=== PATIENT | male | born 1930 | race Caucasian/White ===

== ENCOUNTER 2016-11-01 17:33 | Observation (INO) | payer MEDICARE, OTHER ==
--- NOTE | 2016-11-01 20:44 | RAD ---
INDICATION: Altered mental status COMPARISON: None. TECHNIQUE: Contiguous axial sections of the brain were obtained from the skull base to the vertex without contrast. FINDINGS: The ventricles, cisterns and sulci are within normal limits. There are very mild periventricular and subcortical white matter hypoattenuation most consistent with mild chronic microvascular disease. Otherwise the hurt[place]-white matter differentiation is adequately maintained and there is no sulcal effacement. No significant focal abnormality or mass effect is present. There is no evidence for intracranial hemorrhage. No significant focal osseous abnormality is present. The visualized portion of the paranasal sinuses and mastoid air cells appear clear. IMPRESSION: Findings of chronic microvascular disease without acute intracranial abnormality.
--- NOTE | 2016-11-01 20:48 | RAD ---
INDICATION: Chest pain COMPARISON: Similar chest x-ray September 24, 2011 TECHNIQUE: Single AP view of the chest was obtained. FINDINGS: The heart and mediastinum exhibit normal size and contour. Similar the previous chest x-ray the lungs appear hyperaerated in the AP projection. Otherwise the lungs are grossly clear. There is no evidence of a large pleural effusion. Visualized bones are normal for the patient's age. IMPRESSION: No radiographic evidence for acute cardiopulmonary abnormality on this single AP view chest x-ray.
[2016-11-01 21:13] LABS: Hematocrit 35 % (42-52); Hemoglobin 11.4 g/dl (14.0-18.0); Mean Corpuscular HGB Conc 33 g/dl (31-36); Mean Corpuscular Hemoglobin 31 pg (27-31); Mean Corpuscular Volume 96 fL (80-94); Mean Platelet Volume 8 um3 (7.4-10.4); Red Blood Count 3.64 10^6/ul (4.0-5.4); Red Cell Distribution Width 16 % (10.5-15); White Blood Count 7.5 10^3/ul (3.5-10.8)
[2016-11-01 21:28] LABS: Albumin 3.4 g/dL (3.2-5.2); BUN/Creatinine Ratio 32.9 (8-20); Calcium 9.2 mg/dL (8.6-10.3); EGFR African American 119.3 (>60); EGFR Non-African American 92.8 (>60); Globulin 3.2 g/dL (2-4); Potassium 3.6 mmol/L (3.5-5.0); Total Bilirubin 0.4 mg/dL (0.2-1.0); Total Protein 6.6 g/dL (6.4-8.9)
[2016-11-01 21:30] LABS: Troponin I 0.03 ng/mL (<0.04)
[2016-11-01] MEDS ORDERED: Iohexol 350* (CONTRAST) 500 ML MDV IV ONE (21:36)
[2016-11-01] MEDS ORDERED: Acetaminophen TAB* 325 MG PO PRN (22:12)
[2016-11-01] MEDS ORDERED: Atorvastatin* 80 MG TAB PO ONE (22:12)
[2016-11-01] MEDS ORDERED: hydrALAZINE IV* 20 MG/ML VIAL IV SLOW PU PRN (22:12)
[2016-11-01] MEDS ORDERED: Ondansetron INJ* 2 MG/ML VIAL IV PRN (22:12)
[2016-11-01] MEDS ORDERED: Clopidogrel TAB* 75 MG PO SCH (23:00)
--- NOTE | 2016-11-01 23:04 | RAD ---
CPT II: CPT II Codes: 3100F INDICATION: Speech difficulty and loss of motor control COMPARISON: Same day CT of the brain. TECHNIQUE: A CT angiogram of the head and neck was performed with 80 cc of Omnipaque 350. Contiguous axial sections were obtained from the thoracic inlet through the [place]. Images were reconstructed in the sagittal, coronal planes and in a 3-D volume rendered format. The distal cervical internal carotid artery diameter is used as the denominater for stenosis measurement. CTA NECK: The common and internal carotid arteries are patent without hemodynamically significant stenosis. Right: Low the bifurcation the common carotid artery measures 7 mm in diameter. There is mixed attenuation atherosclerosis of the carotid bulb and internal carotid artery narrowing the lumen to <2 mm. Left: The left common carotid artery measures 6 mm in diameter. There is mixed attenuation atherosclerosis at the carotid bulb that totally occludes the left internal carotid artery the artery remains occluded to the petrous carotid artery with the more distal branches filling by collateralized flow. The vertebral arteries are patent without gross abnormality. 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 The LEDA and MCA fill by collateralized flow. The distal most branches of the renal cerebral artery are diminutive relative to the contralateral side. There is no arterial filling seen in the left ophthalmic artery. The anterior and middle cerebral arteries appear are patent without high grade stenosis or occlusion. The vertebral, basilar and posterior cerebral arteries appear patent without high grade stenosis or occlusion. The left posterior communicating artery is absent. IMPRESSION: 1. 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 2. Mixed attenuation atherosclerosis causes high-grade stenosis at the right carotid bulb exhibiting at least 75% degree stenosis. Further characterization with carotid ultrasound can be made if it will influence clinical management.
[2016-11-02 01:48] LABS: HDL Cholesterol 57.2 mg/dL
--- NOTE | 2016-11-02 02:46 | HP ---
HISTORY AND PHYSICAL: DATE OF ADMISSION: 11/01/16 PRIMARY CARE PROVIDER: Nimesh Devries MD ATTENDING PHYSICIAN WHILE IN THE HOSPITAL: Xiomara Dominguez MD * (report dictated by Stevie Barrios NP) CONSULTING NEUROLOGIST: Boris Lin MD CHIEF COMPLAINT: Right arm weakness. HISTORY OF PRESENT ILLNESS: Mr. Lu is an 85-year-old male patient with history of spinal stenosis, anemia, BPH, glaucoma, B12 deficiency, neuropathy, macular degeneration, arthritis, and history of TIAs. He comes into the ER today stating that 2 weeks ago, he was in [place], [place]. He had symptoms of right-sided arm weakness, could not move his arm. He was seen there and apparently had a carotid ultrasound, which did show a complete occlusion of carotid artery. We do not have those records and are unsure which artery it was. Subsequently since then he has been having intermittent symptoms of right arm weakness at time lasting 5 to 10 minutes. He has had 3 episodes 2 days ago. He did have some slurring of his words, but yesterday he did have an episode lasting about 5 minutes and right arm weakness, no facial droop, no weakness to the right leg, no vision changes, and no trouble with speech. The patient states that he went to his primary today and spoke to his primary about his symptoms and he was sent to the ER for further evaluation with CTA of the head and neck. The patient's primary did touch base with neurology who felt that CT of the head and neck would be appropriate. He is completely asymptomatic now. The patient denies any chest pain or shortness of breath. He says he recently was diagnosed of pneumonia and had 7 days of antibiotics and he is doing well since then. No recurrent respiratory symptoms. No nausea. No vomiting. He denied having anymore neuro deficits since yesterday. He was evaluated in the ER. There was concern for recurrent TIAs. Hospitalist service was asked to evaluate in admission. PAST MEDICAL HISTORY: Significant for: 1. Spinal stenosis. 2. Anemia. 3. BPH. 4. Glaucoma. 5. B12 deficiency. 6. Neuropathy. 7. Macular degeneration. 8. Arthritis. 9. History of TIAs. PAST SURGICAL HISTORY: 1. He had cataract extraction. 2. He has had a detached retina repair. HOME MEDICATIONS: Include: 1. Omeprazole 20 mg daily. 2. Naproxen 250 mg p.o. b.i.d. 3. Multivitamin 1 tablet daily. 4. Proscar 5 mg daily. 5. Eye vitamin supplement 1 capsule p.o. daily. 6. B12 1000 mcg IM monthly. 7. Azopt 1 drop right eye b.i.d. 8. Alphagan 1 drop both eyes b.i.d. 9. Aspirin 81 mg daily. ALLERGIES: Include no known drug allergies. FAMILY HISTORY: Reviewed and noncontributory. SOCIAL HISTORY: He does not smoke. Occasionally drinks alcohol. Surrogate decision maker is his son. REVIEW OF SYSTEMS: There is no documented fever. He denied having any significant weight change. There was no double vision. There is no ear discharge. There is no rhinorrhea. No sore throat. No thyroid enlargement. He denies having any chest pain. There was no orthopnea. No nocturnal dyspnea. There is no abdominal pain. No nausea. No vomiting. No dysuria. No frequency. No loss of consciousness. No pruritus. No skin ulcerations. Review of 14 systems completed, all others negative. PHYSICAL EXAMINATION GENERAL: At this time, Mr. Lu is an 85-year-old male patient. He is well nourished, well developed. He does not appear to be in any acute distress. VITAL SIGNS: Reveals blood pressure 187/94, pulse 64, respirations 18, O2 sat 99%, and temperature 98.4. HEENT: Head is atraumatic and normocephalic. Eyes: EOMs are intact. Sclerae anicteric and not pale. Neck: Supple. Throat: Oral mucosa appears to be moist. No oropharyngeal erythema. LUNGS: Clear to auscultation bilaterally. No wheezes, rales, or rhonchi. HEART: Sounds S1 and S2. Regular rate and rhythm. No murmurs, rubs, or gallops. ABDOMEN: Soft. It was flat. It is nontender. Bowel sounds are present. EXTREMITIES: Pulses 2+ throughout. Able to move all 4 extremities with 5/5 strength. NEUROLOGIC: He is awake. He is alert. He is oriented x3. [employer] were equal. Cranial nerves II through XII were intact. He is able to hull and deck remover all 4 extremities with 5/5 strength and no gross focal deficits. His speech is clear. His tongue is midline. SKIN: Grossly intact. DIAGNOSTIC STUDIES/LAB DATA: Today revealed WBC of 7.5, RBC of 3.64, hemoglobin of 11.4, hematocrit 35, and platelet count of 192. INR 1.02 and PTT of 30.9. Sodium 137, potassium of 3.6, chloride 108, bicarb 27, BUN 26, creatinine 0.79, glucose 88, lactic 4.0, and calcium 9.2. Total bili 0.4, AST 17, ALT 10, and alk phos 54. CK 60. Troponin 0.03. BNP 198. Albumin 3.4. He had a brain CT obtained today, which revealed findings of chronic microvascular disease without acute intracranial abnormality. He had an EKG obtained today as well. No previous for comparison, but the EKG today did show a normal sinus rhythm with PAC, no ST elevations or T-wave inversions were noted. He did appear to have LVH. He had a chest x-ray as well, which showed no radiographic evidence of acute cardiopulmonary abnormality Old medical records were reviewed. ASSESSMENT AND PLAN: Mr. Lu is an 85-year-old male patient coming into the ER today with complaints of right arm weakness. He states he has had recurrent symptoms of transient ischemic attack over the last several days. He has had 3 episodes, evaluated by his primary today. There was report of occluded carotid artery. Hospitalist service was asked to evaluate for admission. He will be admitted under observation status for: 1. Transient ischemic attack: Again at this point, we will get a CTA of the head and neck. I did touch base with Dr. Lin. The plan will be to go ahead and put the patient on Plavix. I am going to give him high-dose statin, check lipid panel in the morning. We will place on telemetry. In addition to this, we will continue with his aspirin. We will get neuro check every 2 hours and we will continue to follow. I am going to await for Dr. Lin to evaluate the patient tomorrow to see if we need to go ahead forward with an MRI and echo with bubble study, but at this point we will hold. We will go ahead and try to keep his blood pressure greater than 140. His blood pressure lastly was 220 systolic, so I have ordered hydralazine and I would like to keep him less than 200 for the time being, but because of the concern of the carotid occlusion, I would like to have his blood pressure around the high side. I will continue to monitor. 2. History of spinal stenosis: I have ordered p.r.n. Tylenol. He can follow with his primary. 3. Anemia: H and H stable. We will monitor. 4. Benign prostatic hyperplasia: Continue Proscar. 5. Glaucoma: Continue his medications prescribed. 6. B12 deficiency: When he is discharged, he can continue with his monthly IM injection. 7. Neuropathy: Continue with his current medical regimen. 8. Macular degeneration: Continue current meds. 9. Arthritis: P.R.N. Tylenol is in order. 10. DVT prophylaxis: He will be placed on heparin subcu. 11. Code status: He wishes to be a full code while here in the hospital, which I have ordered. 12. Fluids, electrolytes, and nutrition: He can have a heart-healthy diet. TIME SPENT: Time spent on the admission was approximately 60 minutes; greater than half the time was spent [id number] with the patient obtaining my history and physical, the other half time is spent going over the plan of care with the patient and implementing plan of care. I discussed the plan of care with my attending, Dr. Dominguez. She is in agreement. STEVIE BARRIOS NP CC: Nimesh Devries MD; Boris Lin MD * [id number]/[facility] #: [id number] MTDD
[2016-11-02] MEDS ORDERED: Heparin VIAL(*) 5000 UNITS/ML VIAL (FIVE THOUSAND) SUBCUT SCH (06:00)
[2016-11-02 06:47] LABS: Hematocrit 31 % (42-52); Hemoglobin 10.6 g/dl (14.0-18.0); Mean Corpuscular HGB Conc 34 g/dl (31-36); Mean Corpuscular Hemoglobin 32 pg (27-31); Mean Corpuscular Volume 95 fL (80-94); Mean Platelet Volume 8 um3 (7.4-10.4); Red Blood Count 3.32 10^6/ul (4.0-5.4); Red Cell Distribution Width 16 % (10.5-15)
[2016-11-02 08:28] LABS: BUN/Creatinine Ratio 25.6 (8-20); Calcium 8.5 mg/dL (8.6-10.3); EGFR African American 114.3 (>60); EGFR Non-African American 88.9 (>60); Potassium 3.8 mmol/L (3.5-5.0)
[2016-11-02] MEDS ORDERED: Brimonidine P 0.1%(NF) 1 DROP BTL BOTH EYES SCH (09:00)
[2016-11-02] MEDS ORDERED: Aspirin Low Dose CHEW TAB* 81 MG PO SCH (09:00)
[2016-11-02] MEDS ORDERED: Finasteride TAB* 5 MG PO SCH (09:00)
[2016-11-02] MEDS ORDERED: Pantoprazole TAB (NF) 40 MG TAB PO SCH (09:00)
[2016-11-02] MEDS ORDERED: Brinzolamide 1% OPHTH SOL(NF) BTL RIGHT EYE SCH (09:00)
--- NOTE | 2016-11-02 12:31 | PN ---
Subjective Date of Service: 11/02/16 Interval History: Patient seen and examined at bedside. Pt states that he is feeling well today. Denies fever, chills, shortness of breath, chest discomfort, dizziness, lightheadedness, numbness or tingling, weakness, N/V/D. Tele: Sinus rhythm, rate 70-80's. Family History: Unchanged from Admission Social History: Unchanged from Admission Past Medical History: Unchanged from Admission Objective Active Medications: Acetaminophen (Tylenol Tab*) 650 mg PO Q4H PRN Reason: FEVER/PAIN Aspirin (Aspirin Low Dose Tab*) 81 mg PO DAILY [facility] Brimonidine Tartrate (Alphagan P 0.1% (Nf)) 1 drop BOTH EYES BID COLLEEN Brinzolamide (Azopt 1% Ophth Taisha(Nf)) 1 drop RIGHT EYE BID [facility] Clopidogrel Bisulfate (Plavix Tab*) 75 mg PO DAILY [facility] Finasteride (Proscar Tab*) 5 mg PO DAILY [facility] Heparin Sodium (Porcine) (Heparin Vial(*)) 5,000 units SUBCUT Q8HR [facility] Hydralazine HCl (Apresoline Iv*) 5 mg IV SLOW PU Q6H PRN Reason: BLOOD PRESSURE Ondansetron HCl (Zofran Inj*) 4 mg IV Q6H PRN Reason: NAUSEA Pantoprazole Sodium (Protonix Tab (Nf)) 40 mg PO DAILY [facility] Vital Signs 11/01/16 11/02/16 11/02/16 23:00 00:00 00:14 Pulse Rate 73 Respiratory 23 24 21 Rate Blood Pressure (mmHg) O2 Sat by Pulse 100 Oximetry 11/02/16 11/02/16 11/02/16 04:00 04:14 05:00 Pulse Rate Respiratory 15 17 15 Rate Blood Pressure 121/59 (mmHg) O2 Sat by Pulse Oximetry 11/02/16 11/02/16 11/02/16 06:00 07:03 08:00 Pulse Rate Respiratory 15 14 15 Rate Blood Pressure 147/74 (mmHg) O2 Sat by Pulse Oximetry 11/02/16 11/02/16 11/02/16 09:00 09:38 09:41 Pulse Rate Respiratory 19 23 22 Rate Blood Pressure 212/90 195/100 (mmHg) O2 Sat by Pulse Oximetry 11/02/16 11/02/16 11/02/16 10:00 10:43 11:00 Pulse Rate Respiratory 20 16 17 Rate Blood Pressure 134/71 (mmHg) O2 Sat by Pulse Oximetry 11/02/16 11/02/16 11/02/16 11:38 12:00 12:02 Pulse Rate Respiratory 25 23 21 Rate Blood Pressure 152/81 143/73 (mmHg) O2 Sat by Pulse Oximetry Oxygen Devices in Use Now: None Appearance: NAD, sitting up in bed. Eyes: No Scleral Icterus, PERRLA Ears/Nose/Mouth/Throat: NL Teeth, Lips, Gums, Mucous Membranes Moist Neck: NL Appearance and Movements; NL JVP, Trachea Midline Respiratory: Symmetrical Chest Expansion and Respiratory Effort, Clear to Auscultation Cardiovascular: NL Sounds; No Murmurs; No JVD, RRR Abdominal: NL Sounds; No Tenderness; No Distention Extremities: No Edema Skin: No Rash or Ulcers Neurological: Alert and Oriented x 3, NL Muscle Strength and Tone Lines/Tubes/Other Access: Clean, Dry and Intact Peripheral IV - site benign. Nutrition: Taking PO's Result Diagrams: 11/02/16 06:30 11/02/16 07:53 Assess/Plan/Problems-Billing Assessment: Mr. Lu is a 85 yo male with PMH significant for who presented to the emergency room with complaints of right arm weakness. He reports symptoms of recurrent TIAs over the last several days. - Patient Problems (1) TIA (transient ischemic attack) Comment: Symptoms have resolved at this time (right arm weakness). CTA head and neck shows at the bifurcation the left internal carotid artery becomes completely occluded and the occlusion extends to the petrous carotid artery. Mixed attenuation atherosclerosis with high-grade right carotid bulb stenosis of 75%. Continue ASA and Plavix. Dr. Lin working to get the patient transferred to [place] for vascular surgery. (2) Anemia Code(s): D64.9 - ANEMIA, UNSPECIFIED SNOMED Code(s): 501951319 Comment: HH stable. Will continue to monitor. (3) BPH (benign prostatic hyperplasia) Code(s): N40.0 - BENIGN PROSTATIC HYPERPLASIA WITHOUT LOWER URINRY TRACT SYMP SNOMED Code(s): 157437792 Comment: Continue Proscar. (4) DVT prophylaxis Code(s): SJV6182 - SNOMED Code(s): 259646800 Comment: Continue SQ heparin. (5) DNR (do not resuscitate) Status and Disposition: Inpatient. Possible transfer to [place] for treatment of carotid artery occlusion later today.
[2016-11-02 18:20] VITALS: BP 163/94
--- NOTE | 2016-11-02 19:00 | TRS ---
TRANSFER SUMMARY: DATE OF ADMISSION: 11/01/16 DATE OF TRANSFER: 11/02/16 ATTENDING PHYSICIAN: Dr. Doni Kendrick* (dictated by Marcie Marie NP). PRIMARY CARE PROVIDER: Dr. Nimesh Devries. PRIMARY DIAGNOSES: 1. Transient ischemic attack. 2. 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 SECONDARY DIAGNOSES: 1. History of transient ischemic attacks. 2. Spinal stenosis. 3. Anemia. 4. Glaucoma. 5. B12 deficiency. 6. Macular degeneration. CONSULTATIONS WHILE IN THE HOSPITAL: Dr. Boris Lin with Neurology. STUDIES WHILE IN THE HOSPITAL: 1. Chest x-ray on 11/01/16. Radiologist's impression: No radiographic evidence for acute cardiopulmonary abnormality on the single AP view chest x- ray. 2. Brain CT on 11/01/16. Radiologist's impression: Findings of chronic microvascular disease without acute intracranial abnormality. 3. CTA of the head and neck on 11/01/16. Radiologist's impression: At the bifurcation of the left internal carotid artery, it becomes completely occluded and the occlusion extends to the petrous carotid artery. Mixed attenuation atherosclerosis causes high-grade stenosis at the right carotid bulb exhibiting at least 75% degree of stenosis. Further characterization with carotid ultrasound can be made if it will influence clinical management. MEDICATIONS: Current home medications include: 1. Omeprazole 20 mg oral daily. 2. Naproxen 250 mg oral twice daily. 3. Multivitamin 1 tablet oral daily. 4. Proscar 5 mg oral daily. 5. Vitamin E supplement 1 capsule oral daily. 6. Vitamin B12 1000 mcg IM monthly. 7. Azopt 1 drop to the right eye twice daily. 8. Alphagan 1 drop to both eyes twice daily. 9. Aspirin 81 mg oral daily. Current hospital medications: 1. Acetaminophen 650 mg oral every 4 hours as needed for pain. 2. Aspirin 81 mg oral daily. 3. Alphagan-P 0.1% one drop to both eyes twice daily. 4. Azopt 1% one drop to the right eye twice daily. 5. Plavix 75 mg oral daily. 6. Finasteride 5 mg oral daily. 7. Heparin 5000 units subcutaneous every 8 hours. 8. Hydroxyzine 5 mg IV slow push every 6 hours as needed for systolic blood pressure greater than 200. 9. Zofran 4 mg IV every 6 hours as needed for nausea. 10. Protonix 40 mg oral daily. HISTORY OF PRESENT ILLNESS/HOSPITAL COURSE: Mr. Lu is an 85-year-old male with past medical history significant for spinal stenosis, anemia, BPH, glaucoma , B12 deficiency, neuropathy, macular degeneration, arthritis, and history of TIAs. He presented to the emergency room on November 01 complaining of symptoms that started 2 weeks ago that consisted of right-sided arm weakness and inability to move his right arm. The patient was seen where he was in [place], [place], where he reportedly had a carotid ultrasound, which showed complete occlusion of the left carotid artery. At this time, those records are unavailable and we are unable to know exactly what that study showed. Subsequently, since then, the patient has been having intermittent symptoms of right arm weakness lasting approximately 5 to 10 minutes. He has had 3 episodes in the last 2 days. The patient also noted having some slurred speech on his day prior to admission and had an episode lasting about 5 minutes and right arm weakness with no facial droop, no weakness to the right lower extremity, no visual changes, and no trouble with speech. The patient states that he was seen by his primary care doctor who felt that based off his symptoms , he should come to the emergency room for further evaluation and have a CTA of his head and neck. While in the emergency room, the patient was completely asymptomatic. He was evaluated and there was concern for recurrent TIAs. The case was discussed with Neurology on-call. The patient did receive CTA of his head and neck while in the emergency room showing that at the bifurcation of the left internal carotid artery that it becomes completely occluded and the occlusion extends to the petrous carotid artery. There is also mixed attenuation atherosclerosis causing high-grade stenosis of the right carotid bulb exhibiting at least 75% stenosis. The patient also had a CT of his brain showing microvascular changes, but no acute intracranial abnormalities. The patient had an EKG. Although there were no studies for comparison, the patient seemed to be in normal sinus rhythm with PACs. No ST elevations or T-wave inversion was noted. It does appear that the patient has LVH on his EKG. The patient also had a chest x-ray showing no acute cardiopulmonary abnormalities. Hospitalists were asked to evaluate the patient for observation admission. While in the hospital, the patient continued to be symptom-free. Dr. Lin with Neurology felt that the patient would be best suited by going to [facility] where he could have a neurovascular interventionalist evaluate him for possible intervention of his carotid artery stenosis. The patient was placed on Plavix and aspirin and received a high dose of statin overnight. It was decided to hold on an MRI and echo at this point and have the patient transferred for continuation of care and possible intervention. The patient was intermittently noted to have hypertension and had elevated blood pressures at initial presentation, but this has improved during his hospital stay. Dr. Chapman at [facility] accepted the patient. Mr. Lu is stable for transfer to [facility]. Vital signs are as follows: Temperature 98.4, heart rate 68, respiratory rate 16, O2 sat 98% on room air, blood pressure 147/81. TRANSFER PLAN: The patient will be transferred to [facility] where he will be seen by a neurovascular interventionalist. This is a summarized report of a complex medical history and hospital stay. For further details, please see the entire medical record. TIME SPENT: Time for this transfer was 50 minutes; 25 minutes was spent face-to - face with the patient discussing transfer plans and instructions. CONDITION ON DISCHARGE: Stable. Reviewed by XIOMARA RANGEL 11/11/15 0801 CC: Dr. Nimesh Devries* [id number]/[facility] #: [id number] NONA
--- NOTE | 2016-11-02 22:01 | CONS ---
CONSULTATION NOTE: DATE: 11/02/2016. PATIENT OF: Nimesh Devries MD. HISTORY: This is an 85-year-old man I am asked to evaluate for new onset of recurrent TIAs in the past 2 weeks' time. He had symptoms of significantly weak with difficulty moving his right arm with some dysarthria. He had another episode lasting 5 to 10 minutes of dysarthria and then 1 to 2 days ago of slurring of speech and right arm numbness, also lasting about 5 minutes. He has had no prior strokes. He had a carotid ultrasound that showed left carotid occlusion in [facility]. PAST MEDICAL HISTORY: He has a past history of spinal stenosis, anemia, BPH, glaucoma, B12 deficiency, neuropathy, macular degeneration, arthritis, status post cataract extraction and a detached retinal care. MEDICATIONS: At home include: 1. Omeprazole. 2. Baclofen. 3. Proscar 5 mg daily. 4. B12 injections monthly. 5. Eye injections. 6. Aspirin 81 mg daily. ALLERGIES: He has no known drug allergies. FAMILY HISTORY: Reviewed and noncontributory. SOCIAL HISTORY: He does not smoke and drinks occasional alcohol. No drug use. REVIEW OF SYSTEMS: Negative in all 14 spheres other than the HPI. PHYSICAL EXAM: Temperature he is afebrile, pulse 77, respirations 21, blood pressure 161/84. He is alert and oriented with normal speech and comprehension. Cranial nerves II through XII were intact. Good reflexes in toes bilaterally. Motor exam revealed normal tone. Strength: Cuskwh-fa-kbiy sensation intact to light touch. Reflexes were 1 and equal. Toes were downgoing. Chest: Clear. Cardiovascular: Regular rate and rhythm without murmur. Abdomen: Soft with positive bowel sounds. DIAGNOSTIC STUDIES/LAB DATA: A CT scan showed some chronic microvascular disease without acute stroke. His CTA showed occluded left carotid artery with high grade stenosis of the right carotid bulb with a 75% stenosis. Labs included white count 6, hematocrit of 31, platelets 163. Normal INR and PTT. LDL 137. Normal CMP otherwise. He has been started on aspirin and Plavix and he received a dose of atorvastatin in the ER. I discussed with him whether he would want a possible procedure at his age and I discussed that most likely what is happening is that since he is not getting any flow across his left carotid, his left hemisphere circulation flows from his right carotid and posterior circulation and with the stenosis on the right and with the history of 3 TIAs in the past couple of weeks ' time, the concern is that he may have a large stroke in the near future. I discussed that at his age and with the carotid stenosis he has, the procedure may be risky but he is willing to proceed further with a significant operation if the benefits outweighed the risks. Therefore, I called the neurovascular surgeons at [place], discussed the case with Dr. Scott in detail and the patient is being transferred for further evaluation and possible stenting or other procedures. Thank you for sharing his case. [id number]/[facility] #: [id number] NONA
--- NOTE | 2016-11-04 07:51 | ED ---
Hugo Sagastume Rebecca, scribed for Richi Tristan MD on 11/01/16 at 1915 . Neurological HPI - HPI Summary HPI Summary: Pt is an 85 y/o M who presents to ED as a referral by Dr. Devries s/p multiple TIAs. Pt reports that he had one yesterday and multiple last week. Sx yesterday consisted of LUE weakness which lasted 5 minutes. Sx yesterday began suddenly, aggravated by nothing and resolved spontaneously. TIAs last week he p/w slurred speech. TIAs last week occurred in [place]. Denies any pain. All sx have resolved. 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 IF THERE IS ONE, PLEASE SEE DICTATION BY DR. TRISTAN FOR FURTHER INFORMATION. - History of Current Complaint Chief Complaint: EDWeakness Stated Complaint: R/O TIA, LOSS OF SPEECH/MOTOR CONTROL Time Seen by Provider: 11/01/16 19:05 Hx Obtained From: Patient Onset/Duration: Sudden Onset, Started days ago - yesterday, Resolved Timing: Intermittent Episodes Lasting: - 1 episode lasting 5 minutes Pain Intensity: 0 Pain Scale Used: 0-10 Numeric Character: Weak - LUE, yesterday, resolved, Impaired Speech - Last week, resolved Aggravating: Nothing Alleviating: Spontanious Resolution Associated Signs and Symptoms: Positive: Weakness - LUE, resolved, Impaired Speech - resolved Similar Episode/Dx as: Multiple prior TIAs - Additional Pertinent History Primary Care Physician: Dr. Devries Referred By: PCP - Allergy/Home Medications Allergies/Adverse Reactions: Allergies Allergy/AdvReac Type Severity Reaction Status Date / Time No Known Allergies Allergy Verified 07/21/16 14:51 Home Medications: Home Medications Brimonidine P 0.1%(NF) [Alphagan P 0.1% (NF)] 1 drop BID 11/01/16 [History Confirmed 11/01/16] Brinzolamide 1% OPHTH SABRINA(NF) [Azopt 1% OPHTH SABRINA(NF)] 1 drop RIGHT EYE BID 01/13 [History Confirmed 11/01/16] PMH/Surg Hx/FS Hx/Imm Hx Endocrine/Hematology History: Denies: Hx Diabetes Cardiovascular History: Denies: Hx Hypercholesterolemia, Hx Hypertension, Hx Pacemaker/ICD History: Denies: Hx Renal Disease Sensory History: Reports: Hx Hearing Aid Neurological History: Reports: Hx Transient Ischemic Attacks (TIA) - Multiple last week and one yesterday, Other Neuro Impairments/Disorders - PAIN CLINIC PT Psychiatric History: Denies: Hx Panic Disorder - Surgical History Surgery Procedure, Year, and Place: KNEE SURGERY LEFT. CATARACTS BILATERAL EYES. DETATCHED RETINA RIGHT SIDE-DX'S DONE CLEARED BY DR CONTEH. TONSILS A CHILD Infectious Disease History: No Infectious Disease History: Denies: Traveled Outside the [place] in Last 30 Days - Family History Known Family History: Positive: Blood Disorder - father , Other - [place] - Social History Occupation: Retired Alcohol Use: Weekly Alcohol Amount: 1 drink/week Substance Use Type: Reports: None Smoking Status (MU): Never Smoked Tobacco Review of Systems Negative: Arthralgia Positive: Weakness - LUE, yesterday, resolved, Slurred Speech - last week, resolved All Other Systems Reviewed And Are Negative: Yes Physical Exam - Summary Physical Exam Summary: GENERAL: Awake, alert, oriented, no acute distress, very pleasant, normal phonation HEENT: Head is normocephalic, atraumatic, pupils equal round reactive to light, no photophobia, extraocular muscles intact, no facial droop, anicteric sclera, pink conjunctiva, mucous membranes moist, no erythema, no discharge, no lesions , neck is soft, neck is supple, no carotid bruit , trachea is midline, no JVD CARDIAC: Regular rate and rhythm, S1, S2, no rub, no murmur, no gallop, 2+ radial and pedal pulses bilaterally RESPIRATORY: Clear to auscultation bilaterally with no rales, rhonchi, or wheezes, non-tender ABDOMEN: Bowel sounds positive, no bruit, soft non-tender, no CVA tenderness EXTREMITIES: No edema, warm, dry, moving all extremities in a grossly normal manner NEUROLOGICAL: Cranial nerves II through XII intact, five out of five flexor and extensor strength in upper and lower extremities symmetrically, 2+ DTRs in upper and lower extremities symmetrically, no pronator drift, normal finger nose finger, normal rapid alternating movements, negative Babinski, normal sensation in all extremities IF THERE IS ONE, PLEASE SEE DICTATION BY DR. TRISTAN FOR FURTHER INFORMATION. Triage Information Reviewed: Yes Vital Signs On Initial Exam: Initial Vitals Temp Pulse Resp BP Pulse Ox 98.4 F 81 18 184/97 100 11/01/16 17:49 11/01/16 17:49 11/01/16 17:49 11/01/16 17:49 11/01/16 17:49 Vital Signs Reviewed: Yes Diagnostics - Vital Signs Vital Signs Temp Pulse Resp BP Pulse Ox 11/01/16 17:49 98.4 F 81 18 184/97 100 - Laboratory Lab Results: Lab Results 11/01/16 11/01/16 11/01/16 Range/Units 21:00 21:00 21:00 WBC 7.5 (3.5-10.8) 10^3/ul RBC 3.64 L (4.0-5.4) 10^6/ul Hgb 11.4 L (14.0-18.0) g/dl Hct 35 L (42-52) % MCV 96 H (80-94) fL MCH 31 (27-31) pg MCHC 33 (31-36) g/dl RDW 16 H (10.5-15) % Plt Count 192 (150-450) 10^3/ul MPV 8 (7.4-10.4) um3 Neut % (Auto) 60.9 (38-83) % Lymph % (Auto) 28.1 (25-47) % [place] % (Auto) 7.0 (1-9) % Eos % (Auto) 2.9 (0-6) % Baso % (Auto) 1.1 (0-2) % Absolute Neuts (auto) 4.6 (1.5-7.7) 10^3/ul Absolute Lymphs (auto) 2.1 (1.0-4.8) 10^3/ul Absolute Monos (auto) 0.5 (0-0.8) 10^3/ul Absolute Eos (auto) 0.2 (0-0.6) 10^3/ul Absolute Basos (auto) 0.1 (0-0.2) 10^3/ul Absolute Nucleated RBC 0.02 10^3/ul Nucleated RBC % 0.2 INR (Anticoag Therapy) 1.02 (0.89-1.11) APTT 30.9 (26.0-36.3) seconds Sodium 137 (133-145) mmol/L Potassium 3.6 (3.5-5.0) mmol/L Chloride 108 (101-111) mmol/L Carbon Dioxide 27 (22-32) mmol/L Anion Gap 2 (2-11) mmol/L BUN 26 H (6-24) mg/dL Creatinine 0.79 (0.67-1.17) mg/dL Est GFR ( Amer) 119.3 (>60) Est GFR (Non-Af Amer) 92.8 (>60) BUN/Creatinine Ratio 32.9 H (8-20) Glucose 88 (70-100) mg/dL Lactic Acid (0.5-2.0) mmol/L Calcium 9.2 (8.6-10.3) mg/dL Total Bilirubin 0.40 (0.2-1.0) mg/dL AST 17 (13-39) U/L ALT 10 (7-52) U/L Alkaline Phosphatase 54 (34-104) U/L Total Creatine Kinase 60 (10-223) U/L CK-MB (CK-2) 5.5 (0.6-6.3) ng/mL Myoglobin 36.7 (17.4-105.7) ng/mL Troponin I 0.03 (<0.04) ng/mL B-Natriuretic Peptide ( - 100) pg/mL Total Protein 6.6 (6.4-8.9) g/dL Albumin 3.4 (3.2-5.2) g/dL Globulin 3.2 (2-4) g/dL Albumin/Globulin Ratio 1.1 (1-3) Triglycerides 62 mg/dL Cholesterol 207 mg/dL LDL Cholesterol 137 mg/dL HDL Cholesterol 57.2 mg/dL 11/01/16 11/01/16 Range/Units 21:00 21:00 WBC (3.5-10.8) 10^3/ul RBC (4.0-5.4) 10^6/ul Hgb (14.0-18.0) g/dl Hct (42-52) % MCV (80-94) fL MCH (27-31) pg MCHC (31-36) g/dl RDW (10.5-15) % Plt Count (150-450) 10^3/ul MPV (7.4-10.4) um3 Neut % (Auto) (38-83) % Lymph % (Auto) (25-47) % [place] % (Auto) (1-9) % Eos % (Auto) (0-6) % Baso % (Auto) (0-2) % Absolute Neuts (auto) (1.5-7.7) 10^3/ul Absolute Lymphs (auto) (1.0-4.8) 10^3/ul Absolute Monos (auto) (0-0.8) 10^3/ul Absolute Eos (auto) (0-0.6) 10^3/ul Absolute Basos (auto) (0-0.2) 10^3/ul Absolute Nucleated RBC 10^3/ul Nucleated RBC % INR (Anticoag Therapy) (0.89-1.11) APTT (26.0-36.3) seconds Sodium (133-145) mmol/L Potassium (3.5-5.0) mmol/L Chloride (101-111) mmol/L Carbon Dioxide (22-32) mmol/L Anion Gap (2-11) mmol/L BUN (6-24) mg/dL Creatinine (0.67-1.17) mg/dL Est GFR ( Amer) (>60) Est GFR (Non-Af Amer) (>60) BUN/Creatinine Ratio (8-20) Glucose (70-100) mg/dL Lactic Acid 1.0 (0.5-2.0) mmol/L Calcium (8.6-10.3) mg/dL Total Bilirubin (0.2-1.0) mg/dL AST (13-39) U/L ALT (7-52) U/L Alkaline Phosphatase (34-104) U/L Total Creatine Kinase (10-223) U/L CK-MB (CK-2) (0.6-6.3) ng/mL Myoglobin (17.4-105.7) ng/mL Troponin I (<0.04) ng/mL B-Natriuretic Peptide 198 H ( - 100) pg/mL Total Protein (6.4-8.9) g/dL Albumin (3.2-5.2) g/dL Globulin (2-4) g/dL Albumin/Globulin Ratio (1-3) Triglycerides mg/dL Cholesterol mg/dL LDL Cholesterol mg/dL HDL Cholesterol mg/dL Result Diagrams: 11/02/16 06:30 11/02/16 07:53 Lab Statement: Any lab studies that have been ordered have been reviewed, and results considered in the medical decision making process. - Radiology CXR Xray Interpretation: No Acute Changes Radiology Interpretation Completed By: Radiologist - CT Brain CT CT Interpretation Completed By: Radiologist - Findings of chronic microvascular disease without acute intracranial abnormality. Head CTA CT Interpretation Completed By: Radiologist - IMPRESSION: 1. 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 2. Mixed attenuation atherosclerosis causes high-grade stenosis at the right carotid bulb exhibiting at least 75% degree stenosis. Further characterization with carotid ultrasound can be made if it will influence clinical management. - EKG 1855 Cardiac Rate: NL - 63 bpm EKG Rhythm: Sinus Rhythm - normal Ectopy: PACs - occasional Course/Dx - Diagnoses Provider Diagnoses: TIA (transient ischemic attack) - Physician Notifications Discussed Care of Patient With: Dr. Devries, explaining pt's case. Dr. Dominguez, hospitalist, at 2130 who agrees to admit pt. Time Discussed With Above Provider: 21:24 Discharge - Discharge Plan Condition: Good Disposition: TRANS HIGHER LVL OF CARE FAC The documentation as recorded by the Hugo graham Rebecca accurately reflects the service I personally performed and the decisions made by , Richi Tristan MD.
== END 2016-11-02 18:56 | disposition short-term general hospital (02) ==
LOC: ED 17:33 → EDHOLD 22:08
PROVIDERS: ADMIT Pediatrics; ATTEND Internal Medicine
DX: G45.9 Transient cerebral ischemic attack, unspecified (principal); I49.1 Atrial premature depolarization; M48.00 Spinal stenosis, site unspecified; D64.9 Anemia, unspecified; I65.23 Occlusion and stenosis of bilateral carotid arteries; N40.0 Benign prostatic hyperplasia without lower urinary tract symptoms; E53.9 Vitamin B deficiency, unspecified; G62.9 Polyneuropathy, unspecified; H35.30 Unspecified macular degeneration; Z86.73 Personal history of transient ischemic attack (TIA), and cerebral infarction without residual deficits; Z79.82 Long term (current) use of aspirin; Z79.899 Other long term (current) drug therapy
CPT/HCPCS: 36415; 70450; 70496; 70498; 71010; 80048; 80053; 80061; 82550; 82553; 83036; 83605; 83874; 83880; 84484; 85025; 85610; 85730; 93005; 96372; 99283; A9270-GY; G0378; J1644; Q9967

== ENCOUNTER 2017-12-02 10:33 | Emergency (ER) | payer MEDICARE, OTHER ==
[2017-12-02 11:12] VITALS: BP 110/69
--- NOTE | 2017-12-02 11:28 | UC ---
FLU HPI - HPI Summary HPI Summary: Patient c/o nasal congestion, malaise and weakness, occasional dry cough for the past 6 days. He states he had a low grade fever at the beginning. He has been resting and has normal intake of fluids and food. History of carotid stenosis, HLD, BPH. - History of Current Complaint Chief Complaint: UCRespiratory Stated Complaint: CHEST CONGESTION Time Seen by Provider: 12/02/17 10:59 Hx Obtained From: Patient Onset/Duration: Gradual Onset, Lasting Days Severity Currently: Moderate Severity Initially: Moderate Pain Intensity: 0 - Risk Factors Influenza Risk Factors: Age 65 y/o or Older - Allergy/Home Medications Allergies/Adverse Reactions: Allergies Allergy/AdvReac Type Severity Reaction Status Date / Time No Known Allergies Allergy Verified 12/02/17 11:12 PMH/Surg Hx/FS Hx/Imm Hx Previously Healthy: Yes Endocrine History: Dyslipidemia Cardiovascular History: Hypertension - Surgical History Surgical History: Yes Surgery Procedure, Year, and Place: KNEE SURGERY LEFT. CATARACTS BILATERAL EYES. DETATCHED RETINA RIGHT SIDE-DX'S DONE CLEARED BY DR CONTEH. TONSILS A CHILD - Family History Known Family History: Positive: Blood Disorder - father , Other - [place] - Social History Alcohol Use: Occasionally Alcohol Amount: 5 drinks per week Substance Use Type: None Smoking Status (MU): Never Smoked Tobacco Review of Systems Constitutional: Fever ENT: Nasal Discharge, Sinus Congestion Respiratory: Cough Cardiovascular: Negative All Other Systems Reviewed And Are Negative: Yes Physical Exam Triage Information Reviewed: Yes Appearance: No Pain Distress, Thin Vital Signs: Initial Vital Signs Temp 98.9 F 12/02/17 11:09 Pulse 77 12/02/17 11:09 Resp 18 12/02/17 11:09 BP 110/69 12/02/17 11:09 Pulse Ox 97 12/02/17 11:09 Vital Signs Reviewed: Yes ENT: Positive: Pharynx normal, Nasal congestion, TMs normal, Uvula midline Neck exam: Normal Respiratory Exam: Normal Cardiovascular Exam: Normal Abdominal Exam: Normal Bowel Sounds: Positive: Present Flu Course/Dx - Course Course Of Treatment: CXR negative. Continue PO fluids. Patient not tested for influenza due to length of onset of symptoms. Continue rest, lives at [facility], f/u PCP - Differential Dx/Diagnosis Provider Diagnoses: viral URI Discharge - Discharge Plan Condition: Stable Disposition: HOME Patient Education Materials: Viral Syndrome (ED) Referrals: Garett Caldwell MD [Primary Care Provider] -
--- NOTE | 2017-12-02 12:27 | RAD ---
INDICATION: Cough and weakness x6 days COMPARISON: Most recent chest x-rays dated November 01, 2016 TECHNIQUE: PA and lateral views of the chest were obtained. FINDINGS: The heart and mediastinum are normal in size and contour. There is calcification overlying the arch of the aorta. The lungs appear hyperaerated on the AP projection. On the lateral projection there is flattening the diaphragm and increased retrosternal airspace. There are no focal masses or lobar consolidation. There is no evidence of large pleural effusion. Visualized bones are normal for the patient's age. There is no radiographic evidence of free air beneath the diaphragm IMPRESSION: CHRONIC APPEARANCE OF OBSTRUCTIVE PULMONARY DISEASE SIMILAR TO THE NOVEMBER 01, 2016 CHEST X-RAY.
== END 2017-12-02 13:05 | disposition home or self-care (01) ==
LOC: UCEAST 10:33
DX: J06.9 Acute upper respiratory infection, unspecified (principal); Z72.89 Other problems related to lifestyle
CPT/HCPCS: 71046; 99212; G0463

== ENCOUNTER 2017-12-04 00:59 | Inpatient (IN) | payer MEDICARE, OTHER ==
[2017-12-04] MEDS ORDERED: NS 0.9% 1000 ML*IV.FLUID IV ONE (01:23)
[2017-12-04] MEDS ORDERED: Piperacillin/Tazobac ADVAN(*) 3.375 GM in NS 0.9% 100 ML* 100 ML IVPB ONE (01:26)
[2017-12-04] MEDS ORDERED: Vancomycin(*) 1,000 MG in NS 0.9% 250 ML* 250 ML IVPB ONE (01:26)
[2017-12-04 02:12] LABS: ABS Basophils 0 10^3/ul (0-0.2); ABS Eosinophils 0 10^3/ul (0-0.6); ABS Lymphocytes 1.2 10^3/ul (1.0-4.8); ABS Monocytes 0.5 10^3/ul (0-0.8); ABS Neutrophils 5.6 10^3/ul (1.5-7.7); ABS Nucleated RBC 0 10^3/ul; Eosinophil % 0 % (0-6); Hematocrit 34 % (42-52); Hemoglobin 11.6 g/dl (14.0-18.0); Lymphocyte % 16.8 % (25-47); Mean Corpuscular HGB Conc 34 g/dl (31-36); Mean Corpuscular Hemoglobin 32 pg (27-31); Mean Corpuscular Volume 95 fL (80-94); Mean Platelet Volume 9 um3 (7.4-10.4); Nucleated Red Blood Cells % 0; Platelet Count 106 10^3/ul (150-450); Red Blood Count 3.62 10^6/ul (4.0-5.4); Red Cell Distribution Width 16 % (10.5-15); White Blood Count 7.4 10^3/ul (3.5-10.8)
[2017-12-04 02:23] LABS: EGFR Non-African American 69.7 (>60)
[2017-12-04 02:25] LABS: INR 1.02 (0.77-1.02)
[2017-12-04] MEDS ORDERED: Oseltamivir CAP* 75 MG CAP PO ONE ×2 (02:29→05:00)
[2017-12-04 02:37] LABS: Urine Appearance Clear; Urine Blood Negative (Negative); Urine Color Yellow; Urine Ketones Negative (Negative); Urine Protein 1+(30 mg/dL) (Negative); Urine Specific Gravity 1.024 (1.010-1.030); Urine Urobilinogen Positive (Negative)
[2017-12-04] MEDS ORDERED: Acetaminophen TAB* 325 MG PO PRN (03:09)
--- NOTE | 2017-12-04 04:08 | ED ---
Influenza-Like Illness - HPI Summary HPI Summary: Patient presents with URI symptoms for 1 week. He reports this started as sore throat and congestion with cough. Cough persists. Intermittent fevers. [facility]-ray. Was told this was normal and he was sent home with supportive care measures. Today he presents as he's concerned about prolonged symptoms. He also reports delayed responses over the past 2 days which is not normal for him. He has had a pneumonia vaccine. Lives alone. Denies chest pain, shortness of breath, abdominal pain, nausea, vomiting, diarrhea. He does feel he's been urinating more than usual however does indicate he has urinary frequency do a prostate issue. - History of Current Complaint Chief Complaint: EDFluSymptoms Time Seen by Provider: 12/04/17 01:03 Hx Obtained From: Patient - Allergy/Home Medications Allergies/Adverse Reactions: Allergies Allergy/AdvReac Type Severity Reaction Status Date / Time No Known Allergies Allergy Verified 12/04/17 01:05 PMH/Surg Hx/FS Hx/Imm Hx Previously Healthy: Yes Endocrine/Hematology History: Denies: Hx Anticoagulant Therapy, Hx Blood Disorders, Hx Diabetes Cardiovascular History: Reports: Hx Hypertension, Other Cardiovascular Problems/ Disorders - carotid artery stenosis B/L Denies: Hx Hypercholesterolemia, Hx Pacemaker/ICD Respiratory History: Denies: Hx Asthma, Hx Chronic Obstructive Pulmonary Disease (COPD), Hx Pneumonia, Hx Pulmonary Embolism History: Denies: Hx Renal Disease Sensory History: Reports: Hx Hearing Aid Neurological History: Reports: Hx Transient Ischemic Attacks (TIA) - Multiple last week and one yesterday, Other Neuro Impairments/Disorders - PAIN CLINIC PT Psychiatric History: Denies: Hx Panic Disorder - Surgical History Surgery Procedure, Year, and Place: KNEE SURGERY LEFT. CATARACTS BILATERAL EYES. DETATCHED RETINA RIGHT SIDE-DX'S DONE CLEARED BY DR CONTEH. TONSILS A CHILD - Immunization History Date of Tetanus Vaccine: unk Date of Influenza Vaccine: unk Immunizations Up to Date: Yes Infectious Disease History: No Infectious Disease History: Denies: Traveled Outside the [place] in Last 30 Days - Family History Known Family History: Positive: Blood Disorder - father , Other - [place] - Social History Occupation: Retired Lives: Alone Alcohol Use: Occasionally Alcohol Amount: 5 drinks per week Hx Substance Use: No Substance Use Type: Reports: None Hx Tobacco Use: No Smoking Status (MU): Never Smoked Tobacco Review of Systems Positive: Fever Eyes: Negative Positive: Sore Throat - dry, scratchy, Nasal Discharge. Negative: Ear Ache Cardiovascular: Negative Negative: Chest Pain Positive: Cough. Negative: Shortness Of Breath Gastrointestinal: Negative Negative: Abdominal Pain, Vomiting, Diarrhea, Nausea Positive: see HPI Musculoskeletal: Negative Skin: Negative Neurological: Other - delayed responses Negative: Headache, Weakness, Paresthesia, Numbness, Syncope, Slurred Speech Psychological: Normal All Other Systems Reviewed And Are Negative: Yes Physical Exam Triage Information Reviewed: Yes Vital Signs On Initial Exam: Initial Vitals Temp Pulse Resp BP Pulse Ox 100.9 F 74 16 142/74 96 12/04/17 01:04 12/04/17 01:04 12/04/17 01:04 12/04/17 01:04 12/04/17 01:04 Vital Signs Reviewed: Yes Appearance: Positive: Well-Appearing, No Pain Distress, Well-Nourished Skin: Positive: Warm, Skin Color Reflects Adequate Perfusion, Dry Head/Face: Positive: Normal Head/Face Inspection - NTTP Eyes: Positive: Normal, EOMI, SHANNAN ENT: Positive: Normal ENT inspection, Hearing grossly normal, Pharynx normal - oral mucosa mostly moist - no lesions, Nasal congestion - mild, TMs normal. Negative: Nasal drainage Neck: Positive: Supple, Nontender Respiratory/Lung Sounds: Positive: Clear to Auscultation, Breath Sounds Present. Negative: Rales, Rhonchi, Wheezes Cardiovascular: Positive: Normal, RRR, Other - carotid bruit appreciated on Rt, S1, S2. Negative: Leg Edema Left, Leg Edema Right Abdomen Description: Positive: Nontender, No Organomegaly, Soft Bowel Sounds: Positive: Present Musculoskeletal: Positive: Normal, Strength/ROM Intact Neurological: Positive: Sensory/Motor Intact, Alert, Oriented to Person Place, Time, CN Intact II-III, Facial Symmetry, Speech Normal, Other - delayed response with questions - responses are appropriate. Negative: Slurred Speech Psychiatric: Positive: Normal Diagnostics - Vital Signs Vital Signs Temp Pulse Resp BP Pulse Ox 12/04/17 02:43 96 12/04/17 01:04 100.9 F 74 16 142/74 96 - Laboratory Lab Results: Lab Results 12/04/17 12/04/17 12/04/17 Range/Units 01:50 01:50 01:50 WBC 7.4 (3.5-10.8) 10^3/ul RBC 3.62 L (4.0-5.4) 10^6/ul Hgb 11.6 L (14.0-18.0) g/dl Hct 34 L (42-52) % MCV 95 H (80-94) fL MCH 32 H (27-31) pg MCHC 34 (31-36) g/dl RDW 16 H (10.5-15) % Plt Count 106 L (150-450) 10^3/ul MPV 9 (7.4-10.4) um3 Neut % (Auto) 75.9 (38-83) % Lymph % (Auto) 16.8 L (25-47) % [place] % (Auto) 7.1 (1-9) % Eos % (Auto) 0 (0-6) % Baso % (Auto) 0.2 (0-2) % Absolute Neuts (auto) 5.6 (1.5-7.7) 10^3/ul Absolute Lymphs (auto) 1.2 (1.0-4.8) 10^3/ul Absolute Monos (auto) 0.5 (0-0.8) 10^3/ul Absolute Eos (auto) 0 (0-0.6) 10^3/ul Absolute Basos (auto) 0 (0-0.2) 10^3/ul Absolute Nucleated RBC 0 10^3/ul Nucleated RBC % 0 INR (Anticoag Therapy) 1.02 (0.77-1.02) APTT 31.1 (26.0-36.3) seconds Sodium 129 L (133-145) mmol/L Potassium 4.0 (3.5-5.0) mmol/L Chloride 96 L (101-111) mmol/L Carbon Dioxide 26 (22-32) mmol/L Anion Gap 7 (2-11) mmol/L BUN 23 (6-24) mg/dL Creatinine 1.01 (0.67-1.17) mg/dL Est GFR ( Amer) 89.7 (>60) Est GFR (Non-Af Amer) 69.7 (>60) BUN/Creatinine Ratio 22.8 H (8-20) Glucose 122 H (70-100) mg/dL Lactic Acid (0.5-2.0) mmol/L Calcium 8.4 L (8.6-10.3) mg/dL Total Bilirubin 0.90 (0.2-1.0) mg/dL AST 26 (13-39) U/L ALT 15 (7-52) U/L Alkaline Phosphatase 48 (34-104) U/L Troponin I 0.03 (<0.04) ng/mL Total Protein 6.7 (6.4-8.9) g/dL Albumin 3.3 (3.2-5.2) g/dL Globulin 3.4 (2-4) g/dL Albumin/Globulin Ratio 1.0 (1-3) Urine Color Urine Appearance Urine pH (5-9) Ur Specific [place] (1.010-1.030) Urine Protein (Negative) Urine Ketones (Negative) Urine Blood (Negative) Urine Nitrate (Negative) Urine Bilirubin (Negative) Urine Urobilinogen (Negative) Ur Leukocyte Esterase (Negative) Urine WBC (Auto) (Absent) Urine RBC (Auto) (Absent) Ur Squamous Epith Cells (Absent) Urine Bacteria (Absent) Urine Glucose (Negative) Urine Ascorbic Acid (Negative) Influenza A (Rapid) (Negative) Influenza B (Rapid) (Negative) 12/04/17 12/04/17 12/04/17 Range/Units 01:50 02:08 02:10 WBC (3.5-10.8) 10^3/ul RBC (4.0-5.4) 10^6/ul Hgb (14.0-18.0) g/dl Hct (42-52) % MCV (80-94) fL MCH (27-31) pg MCHC (31-36) g/dl RDW (10.5-15) % Plt Count (150-450) 10^3/ul MPV (7.4-10.4) um3 Neut % (Auto) (38-83) % Lymph % (Auto) (25-47) % [place] % (Auto) (1-9) % Eos % (Auto) (0-6) % Baso % (Auto) (0-2) % Absolute Neuts (auto) (1.5-7.7) 10^3/ul Absolute Lymphs (auto) (1.0-4.8) 10^3/ul Absolute Monos (auto) (0-0.8) 10^3/ul Absolute Eos (auto) (0-0.6) 10^3/ul Absolute Basos (auto) (0-0.2) 10^3/ul Absolute Nucleated RBC 10^3/ul Nucleated RBC % INR (Anticoag Therapy) (0.77-1.02) APTT (26.0-36.3) seconds Sodium (133-145) mmol/L Potassium (3.5-5.0) mmol/L Chloride (101-111) mmol/L Carbon Dioxide (22-32) mmol/L Anion Gap (2-11) mmol/L BUN (6-24) mg/dL Creatinine (0.67-1.17) mg/dL Est GFR ( Amer) (>60) Est GFR (Non-Af Amer) (>60) BUN/Creatinine Ratio (8-20) Glucose (70-100) mg/dL Lactic Acid 1.1 (0.5-2.0) mmol/L Calcium (8.6-10.3) mg/dL Total Bilirubin (0.2-1.0) mg/dL AST (13-39) U/L ALT (7-52) U/L Alkaline Phosphatase (34-104) U/L Troponin I (<0.04) ng/mL Total Protein (6.4-8.9) g/dL Albumin (3.2-5.2) g/dL Globulin (2-4) g/dL Albumin/Globulin Ratio (1-3) Urine Color Yellow Urine Appearance Clear Urine pH 6.0 (5-9) Ur Specific [place] 1.024 (1.010-1.030) Urine Protein 1+(30 mg/dl) H (Negative) Urine Ketones Negative (Negative) Urine Blood Negative (Negative) Urine Nitrate Negative (Negative) Urine Bilirubin Negative (Negative) Urine Urobilinogen Positive H (Negative) Ur Leukocyte Esterase Negative (Negative) Urine WBC (Auto) Trace(0-5/hpf) (Absent) Urine RBC (Auto) 1+(3-5/hpf) H (Absent) Ur Squamous Epith Cells Present H (Absent) Urine Bacteria Absent (Absent) Urine Glucose Negative (Negative) Urine Ascorbic Acid * H (Negative) Influenza A (Rapid) Positive H (Negative) Influenza B (Rapid) Negative (Negative) Result Diagrams: 12/04/17 01:50 12/04/17 01:50 Lab Statement: Any lab studies that have been ordered have been reviewed, and results considered in the medical decision making process. Flu Symptom Course/Dx - Course Course Of Treatment: Patient presents with URI symptoms 1 week. Of concern, he reports his responses are delayed which is unusual for him. He reports he's had this before with low blood pressure however his blood pressure is adequate tonight. Chest is clear and his pulse ox is good. He does not appear to be tachypneic, short of breath. His temperature is slightly elevated and given his symptoms, there was initial concern for sepsis. Protocol initiated and broad-spectrum coverage for respiratory and urinary tract infections provided. His labs are remarkable for influenza a. Vancomycin had not been administered yet so this was canceled at that time. Tamiflu was administered. Also given patient's neurologic symptoms, a brain CT was ordered which was without acute findings. Discussed case with Dr. Guevara who agrees to admit the patient. - Diagnoses Provider Diagnoses: Influenza A Discharge - Discharge Plan Condition: Stable Disposition: ADMITTED TO [facility]
[2017-12-04] MEDS: Heparin VIAL(*) 5000 UNITS/ML VIAL (FIVE THOUSAND) SUBCUT SCH ×3 (05:07→21:26)
[2017-12-04] MEDS: NS 0.9% 1000 ML* 1,000 ML IV SCH ×2 (05:08→23:35)
--- NOTE | 2017-12-04 06:44 | HP ---
CC: Dr. Caldwell * HISTORY AND PHYSICAL: DATE OF ADMISSION: 12/04/17 PRIMARY CARE PROVIDER: Dr. Caldwell. CHIEF COMPLAINT: Generalized weakness. HISTORY OF PRESENT ILLNESS: Mr. Lu is an 86-year-old male who has a history of severe carotid stenosis on the right, and left totally occluded carotid artery, history of TIAs, neuropathy, B12 deficiency, BPH, and spinal stenosis, who presents to the emergency room with complaints of generalized weakness. The patient states, over the last couple of days he has noted increased lower extremity weakness. He states he presented to the emergency room because he was having a difficult time getting himself up from a couch. Additionally, he noticed, over the last couple of days, his speech has been difficult. He states that he feels that he is on the verge of getting out what he wants to say, but has a hard time forming the word and speaking it. He states this also has been going on over the last couple of days. The patient does admit to cough and nasal congestion. He is having a scant amount of sputum. He denies any shortness of breath. He does admit to sick contacts at [facility]. He states his temperature has been about the 100-degree range. PAST MEDICAL HISTORY: 1. Spinal stenosis. 2. Chronic anemia. 3. BPH. 4. Glaucoma. 5. B12 deficiency. 6. Neuropathy. 7. Macular degeneration. 8. Osteoarthritis. 9. History of TIA. 10. 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 PAST SURGICAL HISTORY: 1. Bilateral cataract extraction. 2. Detached retina repair. 3. Left knee surgery. MEDICATIONS: Patient does not have current list, but from prior visits: 1. Tramadol ER 200 mg p.o. daily. 2. Multivitamin 1 tab p.o. daily. 3. Lipitor 80 mg p.o. daily. 4. Finasteride 5 mg p.o. daily. 5. Eye vitamin supplement 2 caps p.o. daily. 6. Effient 10 mg p.o. daily. 7. Vitamin B12 1000 mcg IM monthly. 8. Vitamin D 3 2000 units p.o. daily. 9. Azopt 1 drop to the right eye twice daily. 10. Alphagan-P 1 drop to both eyes twice daily. 11. Aspirin 325 mg p.o. daily. 12. Tylenol 500 mg p.o. 4 times daily p.r.n. pain. ALLERGIES: No known drug allergies. FAMILY HISTORY: Mom of "old age." Dad of a blood disorder that he is unable to name. SOCIAL HISTORY: The patient is a lifelong nonsmoker. He does drink 1 glass of wine with dinner. 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 He is . He has 3 children. He indicates that his son, Neel, is his healthcare proxy. However , he also states that his healthcare proxy needs to change as his son has stage IV lung cancer. REVIEW OF SYSTEMS: The patient admits to fever as well as mild anorexia. No chest pain. He does have some mild chronic lower extremity edema. He admits to cough, as noted above. No shortness of breath. No abdominal pain per se. However, he does state that over the last couple of days he has had "hints of pain." He denies any nausea, vomiting, diarrhea. He does admit to being constipated chronically. He is on MiraLAX for this. He denies any hematochezia , no hematuria, no dysuria. He admits to generalized weakness and speech issues as noted above. No sudden changes in vision. No dysphagia. No joint pains or muscle pain out of the ordinary. No rashes. No anxiety or depression. PHYSICAL EXAMINATION GENERAL: The patient is a well-developed, elderly male, sitting up on the stretcher, in no acute distress. VITAL SIGNS: Blood pressure 142/74, pulse 74, respirations 16, temp 100.9, O2 sat 96% on room air. HEENT: Pupils are equal, they are round. There is evidence of prior cataract extraction. Extraocular muscles intact. Oropharynx is clear. Oral mucosa is slightly dry. There is no submandibular, cervical or supraclavicular adenopathy. Thyroid is not enlarged. No thyroid nodules are noted. PULMONARY: Lungs are clear to auscultation bilaterally. CARDIAC: Normal S1, S2. Regular rate and rhythm. I do not appreciate any murmurs. There is trace edema of the feet and ankles bilaterally. ABDOMEN: Bowel sounds are present. Abdomen is soft, nontender, and nondistended. MUSCULOSKELETAL: There is no cyanosis or clubbing of the digits. There is full active range of motion of all 4 extremities. The patient does have, what appear to be, hammertoe deformities of the toes bilaterally. SKIN: Warm and dry. There are no rashes. NEUROLOGIC: Cranial nerves II through XII are grossly intact. Sensation is intact to light touch throughout. Right social media editor strength seems slightly weaker than the left. The patient does have a mild dysarthria. PSYCH: The patient is alert. He is oriented x3. Affect appears appropriate. LABORATORY DATA: WBC 7.4, hemoglobin 11.6, hematocrit 34, platelets 106. INR 1.02. Sodium 129, potassium 4.0, chloride 96, CO2 of 26, BUN 23, creatinine 1.01, glucose 122. Lactic acid 1.1. Calcium 8.4. Bilirubin 0.9, AST 26, ALT 15, alk phos 48. Troponin 0.03. Albumin 3.3. Urinalysis revealed urine with a specific gravity of 1.024, 1+ protein, 1+ rbc's, absent bacteria. Influenza A positive. EKG reveals normal sinus rhythm with PAC. ASSESSMENT AND PLAN: Mr. Lu is an 86-year-old male who has a history of peripheral arterial disease, BPH, spinal stenosis, and past history of TIAs, who presents to the emergency room with complaints of generalized lower extremity weakness and difficulty with speech, and was found to be positive for influenza. 1. Generalized weakness. This is likely secondary to volume depletion as well as being positive for influenza. The patient will be hydrated with normal saline at 75 mL per hour. He has already received 2310 mL in the emergency room. The patient will be started on Tamiflu for his newly diagnosed influenza. 2. Dysarthria. The patient does have a mild dysarthria. He has a past history of TIAs. I do see where he was admitted in October 2016 for right upper extremity weakness; the right social media editor strength may be residual; however, the speech is a new issue. I will have the patient undergo CT scan of the brain to evaluate for possible CVA. However, I feel that the patient's dysarthria is more likely secondary to him being ill with influenza and having dry oral mucosa. 3. Peripheral arterial disease. We will continue Effient and aspirin. We will also continue Lipitor. 4. Glaucoma. Continue eye drops. 5. Benign prostatic hypertrophy. We will continue finasteride. 6. Spinal stenosis. We will continue tramadol, though this will likely need formulary substitution as he is on extended release formulation. 7. DVT prophylaxis. According to the Adult Thrombosis Prophylaxis Risk Factor Assessment Guide, the patient has a total risk factor score of 3, making him high risk. He will be placed on heparin 5000 units subcutaneous q.8 hours. 8. Code status is full. TIME SPENT: Sixty-five minutes were spent admitting this patient. [id number]/[facility] #: [id number] NONA
--- NOTE | 2017-12-04 08:13 | RAD ---
INDICATION: Dysarthria COMPARISON: CT of the brain November 01, 2016 TECHNIQUE: Contiguous axial sections of the brain were obtained from the skull base to the vertex without contrast. FINDINGS: The ventricles, cisterns and sulci are within normal limits. There is mild periventricular and subcortical white matter hypoattenuation similar in appearance to the previous CT of the brain. The [place]-white matter differentiation is adequately maintained and there is no sulcal effacement. No significant focal abnormality or mass effect is present. There is coarse atherosclerotic calcification of the left vertebral artery and bilateral petrous carotid arteries. There is no evidence for intracranial hemorrhage. No significant focal osseous abnormality is present. There is mild right greater than left mucosal thickening of the anterior ethmoid air cells. There is mild mucosal thickening of the right maxillary sinus. The mastoid air cells are well aerated bilaterally. IMPRESSION: No acute intracranial abnormality.
--- NOTE | 2017-12-04 08:17 | RAD ---
Indication: Influenza. Evaluate for pneumonia. Comparison: December 02, 2017 Technique: Upright AP 0412 hours Report: Patchy bilateral airspace consolidation most confluent in the LEFT perihilar region and at the RIGHT lung base. Underlying stigmata of chronic obstructive pulmonary disease including elevated lung volumes and both mild coarsening and rarefaction of the interstitial markings. Cardiomegaly. Unremarkable central pulmonary vasculature and mediastinal contours. IMPRESSION: Given the provided clinical context the constellation of findings is most suggestive of bilateral pneumonia. Radiographic follow-up warranted to assess for resolution of pulmonary opacities.
[2017-12-04] MEDS: Cholecalciferol TAB* 1000 UNITS PO SCH (08:27)
[2017-12-04] MEDS: Aspirin TAB* 325 MG PO SCH (08:27)
[2017-12-04] MEDS: traMADol TAB* 50 MG PO SCH ×2 (08:27→21:18)
[2017-12-04] MEDS: Multivitamins/Minerals TAB PO SCH (08:27)
[2017-12-04] MEDS: Atorvastatin* 80 MG TAB PO SCH (08:27)
[2017-12-04] MEDS: BRINZOLAMIDE 1% RIGHT EYE SCH ×2 (08:28→21:19)
[2017-12-04] MEDS: BRIMONIDINE P 0.1% BOTH EYES SCH ×2 (08:28→21:19)
[2017-12-04] MEDS: Finasteride TAB* 5 MG PO SCH (08:28)
[2017-12-04] MEDS ORDERED: EFFIENT 10 MG PO SCH (09:00)
[2017-12-04] MEDS: CMCS Prasugrel (NF) 10 MG PO SCH (10:53)
[2017-12-04] MEDS: Oseltamivir CAP* 30 MG CAP PO SCH ×2 (13:53→21:18)
--- NOTE | 2017-12-04 18:28 | PN ---
Subjective Date of Service: 12/04/17 Interval History: c/o of feeling weak, denies chest pain or shortness of breath. Denies abd pain, Denies N/V/D Family History: Unchanged from Admission Social History: Unchanged from Admission Past Medical History: Unchanged from Admission Objective Active Medications: Acetaminophen (Tylenol Tab*) 650 mg PO Q6H PRN PRN Reason: FEVER/PAIN Aspirin (Aspirin Tab*) 325 mg PO DAILY [facility] Last Admin: 12/04/17 08:27 Dose: 325 mg Atorvastatin Calcium (Lipitor*) 80 mg PO DAILY [facility] Last Admin: 12/04/17 08:27 Dose: 80 mg Brimonidine Tartrate (Alphagan P 0.1% (Nf)) 1 drop BOTH EYES BID [facility] Last Admin: 12/04/17 08:28 Dose: Not Given Brinzolamide (Azopt 1% Ophth Taisha(Nf)) 1 drop RIGHT EYE BID [facility] Last Admin: 12/04/17 08:28 Dose: Not Given Cholecalciferol (Vitamin D Tab*) 2,000 units PO DAILY [facility] Last Admin: 12/04/17 08:27 Dose: 2,000 units Finasteride (Proscar Tab*) 5 mg PO DAILY [facility] Last Admin: 12/04/17 08:28 Dose: 5 mg Heparin Sodium (Porcine) (Heparin Vial(*)) 5,000 units SUBCUT Q8HR [facility] Last Admin: 12/04/17 13:53 Dose: 5,000 units Sodium Chloride (Ns 0.9% 1000 Ml*) 1,000 mls @ 75 mls/hr IV PER RATE [facility] Last Admin: 12/04/17 05:08 Dose: 75 mls/hr Multivitamins/Minerals (Theragran/Minerals Tab*) 1 tab PO DAILY [facility] Last Admin: 12/04/17 08:27 Dose: 1 tab Oseltamivir Phosphate (Tamiflu Cap*) 30 mg PO BID [facility] Stop: 12/08/17 09:01 Last Admin: 12/04/17 13:53 Dose: 30 mg Prasugrel (Effient (Nf)) 10 mg PO DAILY [facility] Last Admin: 12/04/17 10:53 Dose: 10 mg Tramadol HCl (Ultram*) 100 mg PO BID [facility] Last Admin: 12/04/17 08:27 Dose: 100 mg Vital Signs - 8 hr 12/04/17 12/04/17 12/04/17 12:22 15:57 16:04 Temperature 97.9 F 98.8 F Pulse Rate 74 62 Respiratory 18 24 Rate Blood Pressure 151/74 151/77 (mmHg) O2 Sat by Pulse 97 99 Oximetry Oxygen Devices in Use Now: None Appearance: appears comfortable sitting in bed Eyes: No Scleral Icterus Ears/Nose/Mouth/Throat: Mucous Membranes Moist Neck: NL Appearance and Movements; NL JVP, Trachea Midline Respiratory: Symmetrical Chest Expansion and Respiratory Effort, Clear to Auscultation Cardiovascular: NL Sounds; No Murmurs; No JVD, RRR, No Edema Abdominal: NL Sounds; No Tenderness; No Distention Extremities: No Edema, No Clubbing, Cyanosis Skin: No Rash or Ulcers Neurological: Alert and Oriented x 3 Nutrition: Taking PO's Result Diagrams: 12/04/17 01:50 12/04/17 01:50 Additional Lab and Data: Lab Results 12/04/17 12/04/17 12/04/17 Range/Units 01:50 01:50 01:50 WBC 7.4 (3.5-10.8) 10^3/ul RBC 3.62 L (4.0-5.4) 10^6/ul Hgb 11.6 L (14.0-18.0) g/dl Hct 34 L (42-52) % MCV 95 H (80-94) fL MCH 32 H (27-31) pg MCHC 34 (31-36) g/dl RDW 16 H (10.5-15) % Plt Count 106 L (150-450) 10^3/ul MPV 9 (7.4-10.4) um3 Neut % (Auto) 75.9 (38-83) % Lymph % (Auto) 16.8 L (25-47) % Frio % (Auto) 7.1 (1-9) % Eos % (Auto) 0 (0-6) % Baso % (Auto) 0.2 (0-2) % Absolute Neuts (auto) 5.6 (1.5-7.7) 10^3/ul Absolute Lymphs (auto) 1.2 (1.0-4.8) 10^3/ul Absolute Monos (auto) 0.5 (0-0.8) 10^3/ul Absolute Eos (auto) 0 (0-0.6) 10^3/ul Absolute Basos (auto) 0 (0-0.2) 10^3/ul Absolute Nucleated RBC 0 10^3/ul Nucleated RBC % 0 INR (Anticoag Therapy) 1.02 (0.77-1.02) APTT 31.1 (26.0-36.3) seconds Sodium 129 L (133-145) mmol/L Potassium 4.0 (3.5-5.0) mmol/L Chloride 96 L (101-111) mmol/L Carbon Dioxide 26 (22-32) mmol/L Anion Gap 7 (2-11) mmol/L BUN 23 (6-24) mg/dL Creatinine 1.01 (0.67-1.17) mg/dL Est GFR ( Amer) 89.7 (>60) Est GFR (Non-Af Amer) 69.7 (>60) BUN/Creatinine Ratio 22.8 H (8-20) Glucose 122 H (70-100) mg/dL Lactic Acid (0.5-2.0) mmol/L Calcium 8.4 L (8.6-10.3) mg/dL Total Bilirubin 0.90 (0.2-1.0) mg/dL AST 26 (13-39) U/L ALT 15 (7-52) U/L Alkaline Phosphatase 48 (34-104) U/L Troponin I 0.03 (<0.04) ng/mL Total Protein 6.7 (6.4-8.9) g/dL Albumin 3.3 (3.2-5.2) g/dL Globulin 3.4 (2-4) g/dL Albumin/Globulin Ratio 1.0 (1-3) Urine Color Urine Appearance Urine pH (5-9) Ur Specific [place] (1.010-1.030) Urine Protein (Negative) Urine Ketones (Negative) Urine Blood (Negative) Urine Nitrate (Negative) Urine Bilirubin (Negative) Urine Urobilinogen (Negative) Ur Leukocyte Esterase (Negative) Urine WBC (Auto) (Absent) Urine RBC (Auto) (Absent) Ur Squamous Epith Cells (Absent) Urine Bacteria (Absent) Urine Glucose (Negative) Urine Ascorbic Acid (Negative) Influenza A (Rapid) (Negative) Influenza B (Rapid) (Negative) 12/04/17 12/04/17 12/04/17 Range/Units 01:50 02:08 02:10 WBC (3.5-10.8) 10^3/ul RBC (4.0-5.4) 10^6/ul Hgb (14.0-18.0) g/dl Hct (42-52) % MCV (80-94) fL MCH (27-31) pg MCHC (31-36) g/dl RDW (10.5-15) % Plt Count (150-450) 10^3/ul MPV (7.4-10.4) um3 Neut % (Auto) (38-83) % Lymph % (Auto) (25-47) % Frio % (Auto) (1-9) % Eos % (Auto) (0-6) % Baso % (Auto) (0-2) % Absolute Neuts (auto) (1.5-7.7) 10^3/ul Absolute Lymphs (auto) (1.0-4.8) 10^3/ul Absolute Monos (auto) (0-0.8) 10^3/ul Absolute Eos (auto) (0-0.6) 10^3/ul Absolute Basos (auto) (0-0.2) 10^3/ul Absolute Nucleated RBC 10^3/ul Nucleated RBC % INR (Anticoag Therapy) (0.77-1.02) APTT (26.0-36.3) seconds Sodium (133-145) mmol/L Potassium (3.5-5.0) mmol/L Chloride (101-111) mmol/L Carbon Dioxide (22-32) mmol/L Anion Gap (2-11) mmol/L BUN (6-24) mg/dL Creatinine (0.67-1.17) mg/dL Est GFR ( Amer) (>60) Est GFR (Non-Af Amer) (>60) BUN/Creatinine Ratio (8-20) Glucose (70-100) mg/dL Lactic Acid 1.1 (0.5-2.0) mmol/L Calcium (8.6-10.3) mg/dL Total Bilirubin (0.2-1.0) mg/dL AST (13-39) U/L ALT (7-52) U/L Alkaline Phosphatase (34-104) U/L Troponin I (<0.04) ng/mL Total Protein (6.4-8.9) g/dL Albumin (3.2-5.2) g/dL Globulin (2-4) g/dL Albumin/Globulin Ratio (1-3) Urine Color Yellow Urine Appearance Clear Urine pH 6.0 (5-9) Ur Specific [place] 1.024 (1.010-1.030) Urine Protein 1+(30 mg/dl) H (Negative) Urine Ketones Negative (Negative) Urine Blood Negative (Negative) Urine Nitrate Negative (Negative) Urine Bilirubin Negative (Negative) Urine Urobilinogen Positive H (Negative) Ur Leukocyte Esterase Negative (Negative) Urine WBC (Auto) Trace(0-5/hpf) (Absent) Urine RBC (Auto) 1+(3-5/hpf) H (Absent) Ur Squamous Epith Cells Present H (Absent) Urine Bacteria Absent (Absent) Urine Glucose Negative (Negative) Urine Ascorbic Acid * H (Negative) Influenza A (Rapid) Positive H (Negative) Influenza B (Rapid) Negative (Negative) Assess/Plan/Problems-Billing Assessment: Mr. Lu is an 86 y.o male with a history of TIA, Anemia and BPh, that presented to the emergency room with increased weakness , found to be flu A positive. - Patient Problems (1) Influenza A Current Visit: Yes Status: Acute Code(s): J10.1 - FLU DUE TO OTH IDENT INFLUENZA VIRUS W OTH RESP MANIFEST SNOMED Code(s): 485698145 Comment: tamiflu supportive care PT evalution (2) Pneumonia Current Visit: Yes Status: Acute Code(s): J18.9 - PNEUMONIA, UNSPECIFIED ORGANISM SNOMED Code(s): 118307300 Comment: Will place on azithromycin 500 mg daily Ceftrixone 1 gram daily continue supportive care o2 as needed for shortness of breath O2 saturation are currently 97-99% (3) History of TIA (transient ischemic attack) Current Visit: Yes Status: Acute Comment: continue ASA Continue lipitor (4) BPH (benign prostatic hyperplasia) Current Visit: No Status: Chronic Code(s): N40.0 - BENIGN PROSTATIC HYPERPLASIA WITHOUT LOWER URINRY TRACT SYMP SNOMED Code(s): 637652141 Comment: Continue Proscar. (5) DVT prophylaxis Current Visit: No Status: Acute Code(s): TQJ7392 - SNOMED Code(s): 378455579 Comment: Continue SQ heparin. (6) DNR (do not resuscitate) Current Visit: No Status: Acute Status and Disposition: OBV- possible discharge tomorrow
[2017-12-04] MEDS: Azithromycin IV(*) 500 MG in NS 0.9% 250 ML* 250 ML IVPB SCH (19:20)
[2017-12-04] MEDS: cefTRIAXone(*) 1 GM in NS 0.9% 50 ML* 50 ML IVPB SCH (21:18)
[2017-12-05] MEDS: Heparin VIAL(*) 5000 UNITS/ML VIAL (FIVE THOUSAND) SUBCUT SCH ×3 (05:55→21:03)
[2017-12-05] MEDS: CMCS Prasugrel (NF) 10 MG PO SCH (08:25)
[2017-12-05] MEDS: Cholecalciferol TAB* 1000 UNITS PO SCH (08:26)
[2017-12-05] MEDS: traMADol TAB* 50 MG PO SCH ×2 (08:26→21:01)
[2017-12-05] MEDS: Atorvastatin* 80 MG TAB PO SCH (08:26)
[2017-12-05] MEDS: Finasteride TAB* 5 MG PO SCH (08:27)
[2017-12-05] MEDS: Aspirin TAB* 325 MG PO SCH (08:27)
[2017-12-05] MEDS: Multivitamins/Minerals TAB PO SCH (08:27)
[2017-12-05] MEDS: BRIMONIDINE P 0.1% BOTH EYES SCH ×2 (08:36→21:16)
[2017-12-05] MEDS: BRINZOLAMIDE 1% RIGHT EYE SCH ×2 (08:37→21:16)
[2017-12-05] MEDS: Oseltamivir CAP* 30 MG CAP PO SCH ×2 (08:42→21:02)
[2017-12-05] MEDS: NS 0.9% 1000 ML* 1,000 ML IV SCH (12:21)
--- NOTE | 2017-12-05 13:05 | PN ---
Subjective Date of Service: 12/05/17 Interval History: Continues to feel weak, Denies chest pain or shortness of breath, Denies abd pain , n/v/d Family History: Unchanged from Admission Social History: Unchanged from Admission Past Medical History: Unchanged from Admission Objective Active Medications: Acetaminophen (Tylenol Tab*) 650 mg PO Q6H PRN PRN Reason: FEVER/PAIN Last Admin: 12/05/17 00:51 Dose: 650 mg Aspirin (Aspirin Tab*) 325 mg PO DAILY [facility] Last Admin: 12/05/17 08:27 Dose: 325 mg Atorvastatin Calcium (Lipitor*) 80 mg PO DAILY [facility] Last Admin: 12/05/17 08:26 Dose: 80 mg Brimonidine Tartrate (Alphagan P 0.1% (Nf)) 1 drop BOTH EYES BID [facility] Last Admin: 12/05/17 08:36 Dose: Not Given Brinzolamide (Azopt 1% Ophth Taisha(Nf)) 1 drop RIGHT EYE BID [facility] Last Admin: 12/05/17 08:37 Dose: Not Given Cholecalciferol (Vitamin D Tab*) 2,000 units PO DAILY [facility] Last Admin: 12/05/17 08:26 Dose: 2,000 units Finasteride (Proscar Tab*) 5 mg PO DAILY [facility] Last Admin: 12/05/17 08:27 Dose: 5 mg Heparin Sodium (Porcine) (Heparin Vial(*)) 5,000 units SUBCUT Q8HR [facility] Last Admin: 12/05/17 05:55 Dose: 5,000 units Sodium Chloride (Ns 0.9% 1000 Ml*) 1,000 mls @ 75 mls/hr IV PER RATE [facility] Last Admin: 12/05/17 12:21 Dose: 75 mls/hr Azithromycin 500 mg/ Sodium (Chloride) 250 mls @ 250 mls/hr IVPB Q24H [facility] Last Admin: 12/04/17 19:20 Dose: 250 mls/hr Ceftriaxone Sodium 1 gm/ (Sodium Chloride) 50 mls @ 200 mls/hr IVPB Q24H [facility] Last Admin: 12/04/17 21:18 Dose: 200 mls/hr Multivitamins/Minerals (Theragran/Minerals Tab*) 1 tab PO DAILY [facility] Last Admin: 12/05/17 08:27 Dose: 1 tab Oseltamivir Phosphate (Tamiflu Cap*) 30 mg PO BID [facility] Stop: 12/08/17 09:01 Last Admin: 12/05/17 08:42 Dose: 30 mg Prasugrel (Effient (Nf)) 10 mg PO DAILY [facility] Last Admin: 12/05/17 08:25 Dose: 10 mg Tramadol HCl (Ultram*) 100 mg PO BID [facility] Last Admin: 12/05/17 08:26 Dose: 100 mg Vital Signs - 8 hr 12/05/17 12/05/17 12/05/17 08:08 08:18 08:20 Temperature 98.4 F Pulse Rate 90 Respiratory 17 Rate Blood Pressure 181/78 152/66 (mmHg) O2 Sat by Pulse 94 97 Oximetry 12/05/17 12/05/17 12/05/17 08:26 08:44 10:04 Temperature Pulse Rate Respiratory 18 18 16 Rate Blood Pressure (mmHg) O2 Sat by Pulse Oximetry 12/05/17 12:02 Temperature 97.5 F Pulse Rate 70 Respiratory 16 Rate Blood Pressure 136/59 (mmHg) O2 Sat by Pulse 96 Oximetry Oxygen Devices in Use Now: None Appearance: appears comfortable resting in bed, respiration easy and even Eyes: No Scleral Icterus Ears/Nose/Mouth/Throat: Clear Oropharnyx, Mucous Membranes Moist Neck: NL Appearance and Movements; NL JVP, Trachea Midline Respiratory: Symmetrical Chest Expansion and Respiratory Effort - d, Clear to Auscultation - diminished bs in bilat bases Cardiovascular: RRR, No Edema Abdominal: NL Sounds; No Tenderness; No Distention Extremities: No Edema, No Clubbing, Cyanosis Skin: No Rash or Ulcers Neurological: Alert and Oriented x 3, - - speech clear Nutrition: Taking PO's Result Diagrams: 12/04/17 01:50 12/04/17 01:50 Additional Lab and Data: Lab Results 12/04/17 12/04/17 12/04/17 Range/Units 01:50 01:50 01:50 WBC 7.4 (3.5-10.8) 10^3/ul RBC 3.62 L (4.0-5.4) 10^6/ul Hgb 11.6 L (14.0-18.0) g/dl Hct 34 L (42-52) % MCV 95 H (80-94) fL MCH 32 H (27-31) pg MCHC 34 (31-36) g/dl RDW 16 H (10.5-15) % Plt Count 106 L (150-450) 10^3/ul MPV 9 (7.4-10.4) um3 Neut % (Auto) 75.9 (38-83) % Lymph % (Auto) 16.8 L (25-47) % Scott % (Auto) 7.1 (1-9) % Eos % (Auto) 0 (0-6) % Baso % (Auto) 0.2 (0-2) % Absolute Neuts (auto) 5.6 (1.5-7.7) 10^3/ul Absolute Lymphs (auto) 1.2 (1.0-4.8) 10^3/ul Absolute Monos (auto) 0.5 (0-0.8) 10^3/ul Absolute Eos (auto) 0 (0-0.6) 10^3/ul Absolute Basos (auto) 0 (0-0.2) 10^3/ul Absolute Nucleated RBC 0 10^3/ul Nucleated RBC % 0 INR (Anticoag Therapy) 1.02 (0.77-1.02) APTT 31.1 (26.0-36.3) seconds Sodium 129 L (133-145) mmol/L Potassium 4.0 (3.5-5.0) mmol/L Chloride 96 L (101-111) mmol/L Carbon Dioxide 26 (22-32) mmol/L Anion Gap 7 (2-11) mmol/L BUN 23 (6-24) mg/dL Creatinine 1.01 (0.67-1.17) mg/dL Est GFR ( Amer) 89.7 (>60) Est GFR (Non-Af Amer) 69.7 (>60) BUN/Creatinine Ratio 22.8 H (8-20) Glucose 122 H (70-100) mg/dL Lactic Acid (0.5-2.0) mmol/L Calcium 8.4 L (8.6-10.3) mg/dL Total Bilirubin 0.90 (0.2-1.0) mg/dL AST 26 (13-39) U/L ALT 15 (7-52) U/L Alkaline Phosphatase 48 (34-104) U/L Troponin I 0.03 (<0.04) ng/mL Total Protein 6.7 (6.4-8.9) g/dL Albumin 3.3 (3.2-5.2) g/dL Globulin 3.4 (2-4) g/dL Albumin/Globulin Ratio 1.0 (1-3) Urine Color Urine Appearance Urine pH (5-9) Ur Specific [place] (1.010-1.030) Urine Protein (Negative) Urine Ketones (Negative) Urine Blood (Negative) Urine Nitrate (Negative) Urine Bilirubin (Negative) Urine Urobilinogen (Negative) Ur Leukocyte Esterase (Negative) Urine WBC (Auto) (Absent) Urine RBC (Auto) (Absent) Ur Squamous Epith Cells (Absent) Urine Bacteria (Absent) Urine Glucose (Negative) Urine Ascorbic Acid (Negative) Influenza A (Rapid) (Negative) Influenza B (Rapid) (Negative) 12/04/17 12/04/17 12/04/17 Range/Units 01:50 02:08 02:10 WBC (3.5-10.8) 10^3/ul RBC (4.0-5.4) 10^6/ul Hgb (14.0-18.0) g/dl Hct (42-52) % MCV (80-94) fL MCH (27-31) pg MCHC (31-36) g/dl RDW (10.5-15) % Plt Count (150-450) 10^3/ul MPV (7.4-10.4) um3 Neut % (Auto) (38-83) % Lymph % (Auto) (25-47) % Scott % (Auto) (1-9) % Eos % (Auto) (0-6) % Baso % (Auto) (0-2) % Absolute Neuts (auto) (1.5-7.7) 10^3/ul Absolute Lymphs (auto) (1.0-4.8) 10^3/ul Absolute Monos (auto) (0-0.8) 10^3/ul Absolute Eos (auto) (0-0.6) 10^3/ul Absolute Basos (auto) (0-0.2) 10^3/ul Absolute Nucleated RBC 10^3/ul Nucleated RBC % INR (Anticoag Therapy) (0.77-1.02) APTT (26.0-36.3) seconds Sodium (133-145) mmol/L Potassium (3.5-5.0) mmol/L Chloride (101-111) mmol/L Carbon Dioxide (22-32) mmol/L Anion Gap (2-11) mmol/L BUN (6-24) mg/dL Creatinine (0.67-1.17) mg/dL Est GFR ( Amer) (>60) Est GFR (Non-Af Amer) (>60) BUN/Creatinine Ratio (8-20) Glucose (70-100) mg/dL Lactic Acid 1.1 (0.5-2.0) mmol/L Calcium (8.6-10.3) mg/dL Total Bilirubin (0.2-1.0) mg/dL AST (13-39) U/L ALT (7-52) U/L Alkaline Phosphatase (34-104) U/L Troponin I (<0.04) ng/mL Total Protein (6.4-8.9) g/dL Albumin (3.2-5.2) g/dL Globulin (2-4) g/dL Albumin/Globulin Ratio (1-3) Urine Color Yellow Urine Appearance Clear Urine pH 6.0 (5-9) Ur Specific [place] 1.024 (1.010-1.030) Urine Protein 1+(30 mg/dl) H (Negative) Urine Ketones Negative (Negative) Urine Blood Negative (Negative) Urine Nitrate Negative (Negative) Urine Bilirubin Negative (Negative) Urine Urobilinogen Positive H (Negative) Ur Leukocyte Esterase Negative (Negative) Urine WBC (Auto) Trace(0-5/hpf) (Absent) Urine RBC (Auto) 1+(3-5/hpf) H (Absent) Ur Squamous Epith Cells Present H (Absent) Urine Bacteria Absent (Absent) Urine Glucose Negative (Negative) Urine Ascorbic Acid * H (Negative) Influenza A (Rapid) Positive H (Negative) Influenza B (Rapid) Negative (Negative) Assess/Plan/Problems-Billing Assessment: Mr. Lu is an 86 y.o male with a history of TIA, Anemia and BPh, that presented to the emergency room with increased weakness , found to be flu A positive. - Patient Problems (1) Influenza A Current Visit: Yes Status: Acute Code(s): J10.1 - FLU DUE TO OTH IDENT INFLUENZA VIRUS W OTH RESP MANIFEST SNOMED Code(s): 589312548 Comment: tamiflu supportive care PT evalution (2) Pneumonia Current Visit: Yes Status: Acute Code(s): J18.9 - PNEUMONIA, UNSPECIFIED ORGANISM SNOMED Code(s): 633674847 Comment: Will place on azithromycin 500 mg daily Ceftrixone 1 gram daily continue supportive care o2 as needed for shortness of breath O2 saturation are currently 97-99% (3) History of TIA (transient ischemic attack) Current Visit: Yes Status: Acute Comment: continue ASA Continue lipitor (4) BPH (benign prostatic hyperplasia) Current Visit: No Status: Chronic Code(s): N40.0 - BENIGN PROSTATIC HYPERPLASIA WITHOUT LOWER URINRY TRACT SYMP SNOMED Code(s): 646739074 Comment: Continue Proscar. (5) DVT prophylaxis Current Visit: No Status: Acute Code(s): LKB0705 - SNOMED Code(s): 351515137 Comment: Continue SQ heparin. (6) DNR (do not resuscitate) Current Visit: No Status: Acute Status and Disposition: OBV- possible discharge tomorrow
[2017-12-05] MEDS: Azithromycin IV(*) 500 MG in NS 0.9% 250 ML* 250 ML IVPB SCH (19:37)
[2017-12-05] MEDS: cefTRIAXone(*) 1 GM in NS 0.9% 50 ML* 50 ML IVPB SCH (21:03)
[2017-12-06] MEDS ORDERED: Benzocaine/Menthol LOZ* 1 LOZENGE PO PRN (00:41)
[2017-12-06] MEDS: Heparin VIAL(*) 5000 UNITS/ML VIAL (FIVE THOUSAND) SUBCUT SCH (06:03)
[2017-12-06] MEDS: NS 0.9% 1000 ML* 1,000 ML IV SCH (06:03)
[2017-12-06] MEDS: CMCS Prasugrel (NF) 10 MG PO SCH (09:04)
[2017-12-06] MEDS: Atorvastatin* 80 MG TAB PO SCH (09:04)
[2017-12-06] MEDS: Aspirin TAB* 325 MG PO SCH (09:04)
[2017-12-06] MEDS: traMADol TAB* 50 MG PO SCH (09:05)
[2017-12-06] MEDS: Oseltamivir CAP* 30 MG CAP PO SCH (09:05)
[2017-12-06] MEDS: Finasteride TAB* 5 MG PO SCH (09:06)
[2017-12-06] MEDS: Cholecalciferol TAB* 1000 UNITS PO SCH (09:06)
[2017-12-06] MEDS: Multivitamins/Minerals TAB PO SCH (09:06)
[2017-12-06] MEDS: BRINZOLAMIDE 1% RIGHT EYE SCH (09:07)
[2017-12-06] MEDS: BRIMONIDINE P 0.1% BOTH EYES SCH (09:24)
--- NOTE | 2017-12-06 11:40 | DS ---
DATE OF ADMISSION: 12/05/2017. DATE OF DISCHARGE: 12/06/2017. ATTENDING PHYSICIAN: Jailyn Guevara DO. PRIMARY CARE PHYSICIAN: Garett Caldwell MD. ATTENDING PHYSICIAN: Rogelio Young MD. CHIEF COMPLAINT: Generalized weakness. PRINCIPAL DIAGNOSIS: Influenza A infection. HISTORY OF PRESENT ILLNESS/HOSPITAL COURSE: Mr. 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 He is a resident of independent living at [facility]. He developed a cough, initially with scant sputum and low grade fevers in the 100 degree range. He was found to have influenza A positive swab, started on Tamiflu. His chest x-ray demonstrated finding suggestive of bilateral pneumonia with patchy air space consolidation, most confluent in the left perihilar region and the right lung base. He has underlying stigmata of chronic obstructive pulmonary disease with elevated lung volumes, mild coarsening and rarefaction of the interstitial markings. He was started on additionally Ceftriaxone and Azithromycin for potential pneumonia. His blood cultures have been no growth to date. He has not provided a sputum culture. He was without leukocytosis on admission. He worked with Physical Therapy and had recommendations to pursue acute rehabilitation. He is being discharged to [facility] with continuation of course of Tamiflu and a five day course of Levaquin. He is otherwise feeling well. He is on room air. His cough is thinning out. He is hemodynamically stable. Temperature on admission was 100.9. DISCHARGE MEDICATIONS: 1. Levaquin 750 mg p.o. daily for 5 days (new). 2. Tamiflu 30 mg b.i.d. for 4 more tabs (new). 3. Cyanocobalamin 1,000 mcg IM monthly. 4. Acetaminophen 500 mg p.o. q.i.d. prn. 5. Tramadol 200 mg p.o. daily. 6. Lipitor 80 mg p.o. daily. 7. Finasteride 5 mg p.o. daily. 8. Effient 10 mg p.o. daily. 9. Aspirin 325 mg p.o. daily. 10. Alphagan (Brimonidine) 0.1% one drop both eyes b.i.d. 11. Azopt 1% ophthalmic solution one drop right eye b.i.d. 12. Cholecalciferol 2,000 units p.o. daily. DIET: Heart healthy diet. ACTIVITY: No restrictions, needing physical therapy. DISPOSITION: Discharge to [facility]. FOLLOW-UP: Please follow-up with Dr. Caldwell at [facility] within five days of discharge. Consideration for repeat chest x-ray within one to two weeks. Please monitor for fevers, hypoxia, lightheadedness, and changes in mental status. Time spent on this discharge was 35 minutes. [id number]/[facility] #: [id number] MTDD
[2017-12-06] MEDS ORDERED: BRINZOLAMIDE 1% RIGHT EYE SCH (12:07)
[2017-12-06 13:54] VITALS: BP 123/56
== END 2017-12-06 13:35 | DRG 195 ==
LOC: ED 00:59 → MED 03:09 → OBSVTOIN 12-05 14:00
PROVIDERS: ADMIT Hospitalist; ATTEND Internal Medicine
DX: J11.00 Influenza due to unidentified influenza virus with unspecified type of pneumonia (principal); G62.9 Polyneuropathy, unspecified; D53.9 Nutritional anemia, unspecified; I65.23 Occlusion and stenosis of bilateral carotid arteries; E53.8 Deficiency of other specified B group vitamins; N40.0 Benign prostatic hyperplasia without lower urinary tract symptoms; M48.00 Spinal stenosis, site unspecified; H35.30 Unspecified macular degeneration; M19.90 Unspecified osteoarthritis, unspecified site; Z86.73 Personal history of transient ischemic attack (TIA), and cerebral infarction without residual deficits; Z79.1 Long term (current) use of non-steroidal anti-inflammatories (NSAID); Z79.82 Long term (current) use of aspirin; Z79.899 Other long term (current) drug therapy; Z83.2 Family history of diseases of the blood and blood-forming organs and certain disorders involving the immune mechanism; R47.1 Dysarthria and anarthria; I73.9 Peripheral vascular disease, unspecified; Z66 Do not resuscitate
CPT/HCPCS: 36415; 70450; 71045; 71046; 80053; 81003; 81015; 83605; 84484; 85025; 85610; 85730; 87040; 87502; 93005; 99212; 99284; A9270-GY; G0378; G0463; G8978-GP-CJ; G8979-GP-CI; J0456; J0696; J1644; J2543; J3370

== ENCOUNTER 2018-02-25 17:49 | Inpatient (IN) | payer MEDICARE, OTHER ==
[2018-02-25 18:36] LABS: ABS Basophils 0.1 10^3/ul (0-0.2); ABS Eosinophils 0 10^3/ul (0-0.6); ABS Lymphocytes 1.5 10^3/ul (1.0-4.8); ABS Monocytes 0.5 10^3/ul (0-0.8); ABS Nucleated RBC 0 10^3/ul; Eosinophil % 0.5 % (0-6); Hematocrit 26 % (42-52); Hemoglobin 8.6 g/dl (14.0-18.0); Lymphocyte % 21.2 % (25-47); Mean Corpuscular HGB Conc 33 g/dl (31-36); Mean Corpuscular Hemoglobin 33 pg (27-31); Mean Corpuscular Volume 100 fL (80-94); Nucleated Red Blood Cells % 0.1; Platelet Count 187 10^3/ul (150-450); Red Blood Count 2.58 10^6/ul (4.0-5.4); Red Cell Distribution Width 16 % (10.5-15)
--- NOTE | 2018-02-25 19:00 | RAD ---
Indication: Dizziness. Hypertension. Headache. Comparison: January 05, 2018 Technique: Upright AP 1845 hours Report: Elevated lung volumes and both diffuse mild prominence of the interstitial markings and patchy rarefaction of the mid to upper lung zone interstitial markings. No focal pulmonary lesion, compelling alveolar consolidation, pleural effusion, pneumothorax. Upper normal heart size. Mildly prominent central pulmonary vasculature with peripheral attenuation. Unremarkable mediastinal contours. IMPRESSION: Stigmata of obstructive lung disease with potential pulmonary arterial hypertension. No acute pulmonary or cardiac process evident.
[2018-02-25 19:19] LABS: EGFR Non-African American 83.7 (>60)
--- NOTE | 2018-02-25 19:59 | RAD ---
Indication: Headaches. Typing difficulty. Dizziness with change in position. Chronic symptoms. Comparison: December 04, 2017 CT. Technique: Noncontrast CT vertex of skull through foramen magnum. Report: Mild prominence of the cerebral sulci reflecting atrophy. Unremarkable ventricles and basal cisterns. Decreased density in the periventricular and subcortical white matter while non-specific is most likely due to chronic microangiopathy. Negative for hurtado matter white matter obscuration, intra or extra-axial hemorrhage, or mass effect. Suggestion of a scleral band at the RIGHT optic globe. No suspicious abnormality of the orbits. No suspicious calvarial or skull base lesion evident. Clear paranasal sinuses and mastoid air spaces. Unremarkable scalp. IMPRESSION: 1. Mild involutional change and stigmata of chronic small vessel ischemic disease. 2. No acute intracranial process evident.
--- NOTE | 2018-02-25 20:42 | RAD ---
INDICATION: LEFT lower extremity edema. COMPARISON: March 19, 2011 TECHNIQUE: Elena scale, color Doppler, and spectral analysis of the deep veins of the LEFT lower extremity. Vessel compression, phasicity, and augmentation assessed. REPORT: The LEFT common femoral, great saphenous, profunda femoral, femoral, and popliteal veins are patent. The calf veins are only visible with color Doppler and demonstrate flow without gross evidence for thrombosis. Calf edema limits acoustic window Patency of the RIGHT common femoral vein documented. IMPRESSION: No evidence for LEFT lower extremity deep venous thrombosis.
[2018-02-25] MEDS ORDERED: Ondansetron INJ* 2 MG/ML VIAL IV PRN (22:36)
[2018-02-25] MEDS ORDERED: Ondansetron ODT TAB* 4 MG PO PRN (22:36)
[2018-02-25] MEDS ORDERED: Furosemide IV* 10 MG/ML 2 ML VIAL (20 MG) IV SLOW PU ONE (22:38)
[2018-02-25] MEDS ORDERED: Acetaminophen TAB* 325 MG PO ONE (23:27)
[2018-02-25 23:44] LABS: Hematocrit 24 % (42-52); Hemoglobin 8.2 g/dl (14.0-18.0)
[2018-02-25 23:48] LABS: Corrected Retic Count 1.3 % (0.5-1.5); Hematocrit for Retic CNT 25 % (42-52); Immature Retic Fraction 0.51; RBC Retic Count 2.55 10^6/ul (4.6-6.2)
--- NOTE | 2018-02-26 01:18 | HP ---
CC: Dr. Caldwell * HISTORY AND PHYSICAL: DATE OF ADMISSION: 02/25/18 PRIMARY CARE PROVIDER: Dr. Caldwell. ATTENDING PHYSICIAN WHILE IN THE HOSPITAL: Jailny Guevara DO * (report dictated by Stevie Barrios NP) CHIEF COMPLAINT: 1. Dizziness. 2. Lightheadedness. 3. Weakness. 4. Dyspnea on exertion. HISTORY OF PRESENT ILLNESS: Mr. Lu is an 87-year-old male. 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 He has got complete occlusion to the left and a significant occlusion to the right. His last CTA about a year ago mixed atherosclerosis causes high grade stenosis of the right carotid bulb exhibiting at least 75%, that was in 2017. He comes into the ED today. He says over the last week, he has noticed that he has been having dizzy spells more frequently. He does note that about earlier in the weak, he was doing exercises. He thinks he pulled a muscle. He states since then, he has been having extreme amount of pain in his left thigh. He has noticed that the thigh has gotten more swollen in the last 24 hours and he has had a bruising there. He says he has been taking blood thinners in the form of Effient and aspirin. He says that today particularly he has noticed that he has been really lightheaded even at rest and when he changed positions. He says that he is very familiar with signs of orthostatic hypotension and he has noticed when he stands up or moves and positions quickly, he is getting very lightheaded and he noticed today that he had to take frequent breaks when ambulating because he was getting so tired. He has been feeling fatigued. He states that he has not had any chest pain. He says he has been having some dyspnea on exertion. He has not had any abdominal pain. No tarry black stools were noted. He denies any trauma to the left lower extremity. He says he has not fallen, but he was just getting tired, weak, dizzy, feeling very faint. He alerted staff at [facility] today. They called 911 and he was brought into the hospital. He denies having any recent cough. No vomiting. No diarrhea. No abdominal discomfort. It was noted when he got here, his hemoglobin was 8.6 down from his baseline of 11 to 12. Because of this, we were asked to evaluate for admission. PAST MEDICAL HISTORY: Significant for: 1. Spinal stenosis. 2. Anemia. 3. BPH. 4. Glaucoma. 5. B12 deficiency. 6. Neuropathy. 7. Arthritis. 8. Carotid artery disease. PAST SURGICAL HISTORY: 1. He has had cataract extraction. 2. He has had detached retina repair. 3. He has had a left knee surgery. HOME MEDICATIONS: Include, this will need to be reconciled, but according to the last list we had: 1. Tramadol 200 mg daily. 2. Multivitamin 1 tab daily. 3. Lipitor 1 tablet daily. 4. Finasteride 5 mg daily. 5. Eye vitamin supplement 2 capsules p.o. daily. 6. Effient 10 mg daily. 7. B12 1000 mcg IM monthly. 8. Vitamin D 2000 units p.o. daily. 9. Azopt 1% 1 drop right eye b.i.d. 10. Alphagan 1 drop both eyes b.i.d. 11. Aspirin 325 mg daily. 12. Tylenol 500 mg 4 times a day as needed. ALLERGIES TO MEDICATIONS: No known drug allergies. FAMILY HISTORY: His mother of old age. Father had a blood disorder. SOCIAL HISTORY: He does not smoke. Rarely drinks alcohol. Surrogate decision maker is his son, Boris. REVIEW OF SYSTEMS: There is no documented fever. He denied any significant weight change. There is no double vision. He denies having any ear discharge. There is no rhinorrhea. There is no sore throat. No thyroid enlargement. Denies having any chest pain. There is dyspnea on exertion. There is no orthopnea. There was no nocturnal dyspnea. Denies having any abdominal pain. There is no nausea. No vomiting. No dysuria. No frequency. There is no seizure. No loss of consciousness. No pruritus and no skin ulceration. Review of 14 systems completed, all others negative. PHYSICAL EXAMINATION GENERAL: At this time, Mr. Lu is an 87-year-old male patient. He is sitting in the ED stretcher. He does not appear to be in any acute distress. He appears to be well-nourished, well-developed. VITAL SIGNS: Blood pressure 139/89, pulse 79, respirations 16, O2 sat 99%, temperature 98.3. HEENT: Head: Atraumatic, normocephalic. Eyes: EOMs intact. Sclerae anicteric and not pale. Throat: Oral mucosa appears to be dry. No oropharyngeal erythema. NECK: Supple. LUNGS: Clear to auscultation bilaterally. No wheezes, rales or rhonchi. HEART: Sounds S1, S2. Regular rate and rhythm. No murmurs, rubs or gallops. ABDOMEN: Soft, flat, nontender. Bowel sounds were present. EXTREMITIES: Pulses were 2+ throughout. On the left lower extremity, he has a significant amount of ecchymosis noted to his left thigh, swelling to the left thigh. Distal CSM checks were intact. NEUROLOGIC: He is awake, alert, oriented x3. Tongue midline. Preparation Room Manager were equal , no gross focal deficits. SKIN: Grossly intact. DIAGNOSTIC STUDIES/LAB DATA: WBC 7.0, RBC of 2.58, hemoglobin of 8.6, hematocrit of 26, platelet count of 187. Sodium 136, potassium 4.2, chloride 102, bicarb 28, BUN 25, creatinine of 0.86, glucose 108, lactic 1.0, calcium 8.7. Total bili 1.2, AST 21, ALT 11, alk phos 62. Troponin 0.03, repeat troponin 0.03, albumin was 3.1. He had a venous Doppler study today, showed no evidence of left lower extremity DVT. Brain CT obtained, showed mild involutional change and stigmata of chronic small vessel ischemic disease. No acute intracranial process evident. EKG obtained today, shows a normal sinus rhythm with PACs, rate of 88, LVH, no ST elevations, and did not see any T wave inversions. Compared to the previous EKG, it is similar. He has had the PACs like these previously. Heart rate was slower then. Chest x-ray obtained today , stigmata of obstructive lung disease with potential pulmonary arterial hypertension. No acute pulmonary or cardiac process evident. Old medical records reviewed. ASSESSMENT AND PLAN: Mr. Lu is an 87-year-old male patient coming into the emergency department today with complaints of dizziness, lightheadedness, weakness, progressive worsening fatigue. In addition to this, dyspnea on exertion. Evaluation today, he was found to have a significant drop in his hemoglobin. We were asked to evaluate for admission. He will be admitted under inpatient status: 1. Acute blood loss anemia. Suspect that he may have had some type of pulled or teared muscle in his left thigh. I am getting a CT of that extremity that could be the culprit. He is on Effient and aspirin, which is needed for the carotid artery disease, but my plan will be to give him 2 units of blood. I am going to hold the Effient to see how he responds to the first 2 units. He took his dose today. He is due for the dose tomorrow. If he does not respond appropriately, we should consider touching base with Neurology and consider holding this until we can get the bleeding to tamponade and stop. At this point , though I think he needs 2 units, Lasix in between the units, serial H and Hs. He is heme negative. I did send off an anemia workup for B12, iron studies, retic count, and HDL and we will continue to follow this. 2. Carotid artery disease. Again, holding the Effient for tomorrow. If H and H does trend up appropriately, I would restart that tomorrow; but if it does not respond appropriately, I consider getting Neurology input to see about holding the Effient until we can get the bleeding to tamponade, but he is at high risk for stroke without this medication, so we need to restart it as soon as possible. 3. History of transient ischemic attack. Continue with secondary prevention with the exception of the Effient. 4. Arthritis. Continue meds as prescribed. 5. History of pernicious anemia and B12 deficiency with associated neuropathy. Go ahead and continue his IM B12. I am checking the level. 6. Benign prostatic hypertrophy. Continue meds as prescribed. 7. Glaucoma. Continue his eyedrops. 8. DVT prophylaxis. Because of the acute blood loss anemia, SCDs only. 9. Code status. He does have a MOLST form, but he says he is restraining this while in the hospital and would like to be a full code. 10. Fluids, electrolytes, nutrition. He can have heart healthy diet. TIME SPENT: Time spent on admission 60 minutes, greater than half of the time was spent [id number] with the patient obtaining my history and physical, other half time spent going over the plan of care with the patient and implementing plan of care. I did discuss the plan of care with my attending, Dr. Guevara, she is in agreement. STEVIE BARRIOS, WAX ENGRAVER [id number]/[facility] #: [id number] NONA
[2018-02-26] MEDS ORDERED: traMADol TAB* 50 MG PO PRN (02:22)
[2018-02-26 06:34] LABS: ABS Basophils 0.1 10^3/ul (0-0.2); ABS Eosinophils 0.1 10^3/ul (0-0.6); ABS Lymphocytes 2.2 10^3/ul (1.0-4.8); ABS Monocytes 0.9 10^3/ul (0-0.8); ABS Neutrophils 5.5 10^3/ul (1.5-7.7); ABS Nucleated RBC 0 10^3/ul; Eosinophil % 0.7 % (0-6); Hematocrit 25 % (42-52); Hemoglobin 8.4 g/dl (14.0-18.0); Lymphocyte % 25.1 % (25-47); Mean Corpuscular HGB Conc 34 g/dl (31-36); Mean Corpuscular Hemoglobin 34 pg (27-31); Mean Corpuscular Volume 99 fL (80-94); Mean Platelet Volume 7.5 um3 (7.4-10.4); Nucleated Red Blood Cells % 0; Platelet Count 214 10^3/ul (150-450); Red Blood Count 2.49 10^6/ul (4.0-5.4); Red Cell Distribution Width 16 % (10.5-15); White Blood Count 8.8 10^3/ul (3.5-10.8)
[2018-02-26 06:50] LABS: EGFR Non-African American 75.6 (>60)
[2018-02-26 06:54] LABS: INR 1.17 (0.77-1.02)
--- NOTE | 2018-02-26 07:45 | RAD ---
INDICATION: Hematoma. COMPARISON: There are no prior studies available for comparison. TECHNIQUE: Contiguous axial sections were obtained of the left femur. Images were reconstructed in the sagittal and coronal planes. FINDINGS: The femur appears intact. There is a small fracture fragment present along the superior pole of the patella consistent with an old fracture. No acute fracture is seen. There is a complex joint effusion within the knee. There is a complex popliteal fossa cyst measuring 3.8 x 2.2 cm in size. 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 There appears to be a large partially circumferential mass present along the mid and distal portion of the femur centered along the anterior lateral aspect of the femur. This is not well-defined on this noncontrast study although measures approximately 9.1 x 7.0 x 18.0 cm in size. This is a nonspecific finding although would be most consistent with a hematoma. Recommend clinical correlation. There is a left inguinal hernia containing a small portion of the colon which is nondistended. No bowel wall thickening is seen. IMPRESSION: 1. LARGE PARTIALLY CIRCUMFERENTIAL MASS SURROUNDING MID AND DISTAL FEMUR. THIS IS A NONSPECIFIC FINDING ALTHOUGH MOST CONSISTENT WITH A HEMATOMA. RECOMMEND CLINICAL CORRELATION AND FOLLOW-UP. 2. COMPLEX JOINT EFFUSION WITHIN THE KNEE. 3. POPLITEAL FOSSA CYST. 4. LEFT INTERNAL HERNIA.
[2018-02-26] MEDS ORDERED: Brimonidine P 0.1%(NF) 1 DROP BTL BOTH EYES SCH (09:00)
[2018-02-26] MEDS ORDERED: TRAMADOL HCL 200 MG PO SCH (09:00)
[2018-02-26] MEDS: Aspirin TAB* 325 MG PO SCH (10:19)
[2018-02-26] MEDS: Atorvastatin* 80 MG TAB PO SCH (10:19)
[2018-02-26] MEDS: Multivitamins/Minerals TAB PO SCH (10:20)
[2018-02-26] MEDS: Finasteride TAB* 5 MG PO SCH (10:20)
[2018-02-26] MEDS: PTO Brinzolamide 1% OPHTH SOL(NF) BTL RIGHT EYE SCH ×2 (10:28→21:13)
[2018-02-26] MEDS ORDERED: Acetaminophen TAB* 325 MG PO ONE (10:44)
[2018-02-26] MEDS ORDERED: diPHENhydraMINE PO* 25 MG PO ONE (10:45)
--- NOTE | 2018-02-26 18:37 | PN ---
Subjective Date of Service: 02/26/18 Interval History: Patient seen and examined. Was persistently orthostatic this am. Transfusion initiated this AM. Patient states no headache or dizziness at rest but is very symptomatic when they tried to get him to standing position. Denies chest pain, no headache, has some left thigh pain that is tolerable. Objective Active Medications: Acetaminophen (Tylenol Tab*) 650 mg PO Q4H PRN PRN Reason: FEVER/PAIN Aspirin (Aspirin Tab*) 325 mg PO DAILY [facility] Last Admin: 02/26/18 10:19 Dose: 325 mg Atorvastatin Calcium (Lipitor*) 80 mg PO DAILY [facility] Last Admin: 02/26/18 10:19 Dose: 80 mg Brimonidine Tartrate (Alphagan P 0.1% (Nf)) 1 drop BOTH EYES BID [facility] Last Admin: 02/26/18 10:28 Dose: Not Given Brinzolamide (Azopt 1% Ophth Taisha(Nf)) 1 drop RIGHT EYE BID [facility] Last Admin: 02/26/18 10:28 Dose: Not Given Cyanocobalamin (Vitamin B12 Inj *) 1,000 mcg IM MONTHLY [facility] Finasteride (Proscar Tab*) 5 mg PO DAILY [facility] Last Admin: 02/26/18 10:20 Dose: 5 mg Multivitamins/Minerals (Theragran/Minerals Tab*) 1 tab PO DAILY [facility] Last Admin: 02/26/18 10:20 Dose: 1 tab Ondansetron HCl (Zofran Odt Tab*) 4 mg PO Q6H PRN PRN Reason: NAUSEA/VOMITING Tramadol HCl (Ultram*) 50 mg PO Q6H PRN PRN Reason: PAIN Vital Signs - 8 hr 02/26/18 02/26/18 02/26/18 10:59 11:07 11:32 Temperature 98.9 F Pulse Rate 92 Respiratory 18 22 Rate Blood Pressure 130/62 140/61 (mmHg) O2 Sat by Pulse 99 Oximetry 02/26/18 02/26/18 02/26/18 12:07 13:29 15:14 Temperature 99.3 F 98.1 F Pulse Rate 87 75 Respiratory 18 16 Rate Blood Pressure 135/56 138/67 (mmHg) O2 Sat by Pulse 97 Oximetry Oxygen Devices in Use Now: None Appearance: Alert, NAD Eyes: No Scleral Icterus, PERRLA Ears/Nose/Mouth/Throat: NL Teeth, Lips, Gums, Mucous Membranes Moist Neck: NL Appearance and Movements; NL JVP, Trachea Midline Respiratory: Symmetrical Chest Expansion and Respiratory Effort, Clear to Auscultation Cardiovascular: NL Sounds; No Murmurs; No JVD, RRR Abdominal: NL Sounds; No Tenderness; No Distention Skin: No Rash or Ulcers, - - large area of ecchymosis left posterior-medial thigh Neurological: Alert and Oriented x 3, NL Muscle Strength and Tone Nutrition: Taking PO's Result Diagrams: 02/26/18 06:17 02/26/18 06:17 Diagnostic Imaging: Patient Name: MICHELLE BRIZUELA Medical Record#: [id number] Ordering Physician: Stevie Barrios ORCHESTRATOR Acct.#: [id number] : 1930 Age: 87 Sex: M Location: [address] [place] [address] MEDICAL Exam Date: 02/25/182235 ADM Status: ADM IN Order Information: CT EXTREMITY LOWER LEFT WO Accession Number: [id number] CPT: 20598 INDICATION: Hematoma. COMPARISON: There are no prior studies available for comparison. TECHNIQUE: Contiguous axial sections were obtained of the left femur. Images were reconstructed in the sagittal and coronal planes. FINDINGS: The femur appears intact. There is a small fracture fragment present along the superior pole of the patella consistent with an old fracture. No acute fracture is seen. There is a complex joint effusion within the knee. There is a complex popliteal fossa cyst measuring 3.8 x 2.2 cm in size. 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 There appears to be a large partially circumferential mass present along the mid and distal portion of the femur centered along the anterior lateral aspect of the femur. This is not well-defined on this noncontrast study although measures approximately 9.1 x 7.0 x 18.0 cm in size. This is a nonspecific finding although would be most consistent with a hematoma. Recommend clinical correlation. There is a left inguinal hernia containing a small portion of the colon which is nondistended. No bowel wall thickening is seen. IMPRESSION: 1. LARGE PARTIALLY CIRCUMFERENTIAL MASS SURROUNDING MID AND DISTAL FEMUR. THIS IS A NONSPECIFIC FINDING ALTHOUGH MOST CONSISTENT WITH A HEMATOMA. RECOMMEND CLINICAL CORRELATION AND FOLLOW-UP. 2. COMPLEX JOINT EFFUSION WITHIN THE KNEE. 3. POPLITEAL FOSSA CYST. 4. LEFT INTERNAL HERNIA. <Electronically signed by Abdelrahman Peguero MD in [place]> 02/26/18740 Dictated By: Abdelrahman Peguero MD Dictated Date/Time: 02/26/18740 Transcribed Date/Time: 02/26/18727 Copy to: CC:Jailyn Guevara DO; Shawn Hodgson MD; Garett Caldwell MD; Stevie Barrios NP Imaging - [facility] Imaging - [facility] Imaging - [facility] [address] [address] ph ([phone]) ph ([phone]) ph ([phone]) 1 of 2 Assess/Plan/Problems-Billing Assessment: This is an 87 year old male patient that presents with dizziness and large LLE hematoma, found to have symptomatic anemia and orthostasis. - Patient Problems (1) Orthostasis Code(s): I95.1 - ORTHOSTATIC HYPOTENSION SNOMED Code(s): 695705644 Comment: - likely due to acute anemia, however, he has history of orthostasis in the past - patient also with severe carotid stenosis (2) Hematoma of left lower extremity Code(s): S80.12XA - CONTUSION OF LEFT LOWER LEG, INITIAL ENCOUNTER SNOMED Code (s): 233739498 Comment: - CT as above - Margins marked, continue to monitor for additional bleeding - Hold effient (3) Anemia due to acute blood loss Code(s): D62 - ACUTE POSTHEMORRHAGIC ANEMIA SNOMED Code(s): 332822229 Comment: - Patient states no blunt force trauma, but was exercising and felt a pull and tearing sensation - 2 units PRBCs today - Recheck H&H after (4) History of carotid artery stenosis Code(s): Z86.79 - PERSONAL HISTORY OF OTHER DISEASES OF THE CIRCULATORY SYSTEM SNOMED Code(s): 047899696 Comment: - Follows in [place] with neuro - Per patient report, saw his neurologist in mid December and was told his stenosis was unchanged - If patient continues to be orthostatic after transfusion, we should consider neuro consult and perhaps re-evaluation of carotids - Restart effient when HgB stable and hematoma is resolving (5) History of TIA (transient ischemic attack) Comment: - continue ASA and lipitor (6) DVT prophylaxis Code(s): JQC3676 - SNOMED Code(s): 353314858 Comment: - SCDs, high risk bleeding (7) Full code status Code(s): Z78.9 - OTHER SPECIFIED HEALTH STATUS SNOMED Code(s): 015884928 Status and Disposition: remain inpatient.
[2018-02-26 20:17] LABS: Hematocrit 28 % (42-52); Hemoglobin 9.4 g/dl (14.0-18.0)
[2018-02-26] MEDS: PTO Brimonidine P 0.1%(NF) 1 DROP BTL BOTH EYES SCH (21:13)
[2018-02-27 02:37] LABS: Hematocrit 25 % (42-52); Hemoglobin 8.4 g/dl (14.0-18.0)
[2018-02-27] MEDS: Atorvastatin* 80 MG TAB PO SCH (07:33)
[2018-02-27] MEDS: Finasteride TAB* 5 MG PO SCH (07:33)
[2018-02-27] MEDS: Aspirin TAB* 325 MG PO SCH (07:33)
[2018-02-27] MEDS: PTO Brimonidine P 0.1%(NF) 1 DROP BTL BOTH EYES SCH ×2 (07:33→20:16)
[2018-02-27] MEDS: PTO Brinzolamide 1% OPHTH SOL(NF) BTL RIGHT EYE SCH ×2 (07:33→20:16)
[2018-02-27] MEDS: Multivitamins/Minerals TAB PO SCH (07:33)
[2018-02-27 08:51] LABS: Hematocrit 25 % (42-52); Hemoglobin 8.6 g/dl (14.0-18.0); Mean Corpuscular HGB Conc 34 g/dl (31-36); Mean Corpuscular Hemoglobin 33 pg (27-31); Mean Corpuscular Volume 96 fL (80-94); Mean Platelet Volume 7.3 um3 (7.4-10.4); Platelet Count 181 10^3/ul (150-450); Red Blood Count 2.62 10^6/ul (4.0-5.4); Red Cell Distribution Width 18 % (10.5-15); White Blood Count 7.8 10^3/ul (3.5-10.8)
--- NOTE | 2018-02-27 16:14 | CONS ---
CONSULTATION REPORT: DATE OF CONSULT: 02/27/18 CONSULTING HOSPITALIST PROVIDER: Suyapa Gomes NP REASON FOR CONSULT: History of carotid artery disease, on dual-antiplatelet therapy that was held due to left thigh hematoma. HISTORY OF PRESENT ILLNESS: Сергей Lu is an 87-year-old right-handed man with history of carotid artery disease with what he reports as occlusion of the left carotid artery and severe stenosis of the right, who has had recurrent TIAs , last TIA was last summer. He sees a neurologist, Dr. Doll, who has him on aspirin and Effient. The TIAs were manifesting as sudden-onset aphasia and right-sided weakness lasting for minutes to no more than 1 hour. He also has vitamin B12 deficiency, peripheral neuropathy, and orthostatic hypotension. He presented presented to the ER with symptoms of dizziness and transient left thigh pain. The dizziness was described as intermittent, lightheadedness mostly upon standing from a seated position. The lightheadedness lasts 1-2 minutes and spontaneously resolve. He did not have any focal neurological deficits or loss of motor function or aphasia other than the episodes that he used to have last summer. He does not complain of any weakness at this point. Another reason why he is here is that he was getting up from the chair to the walker when he suddenly he felt a mild thigh pain that lasted for a few minutes. After a few minutes, the patient started developing dizziness. He had swelling of the left thigh. He denied any falls or head injury. He denied any chest pain, shortness of breath, or palpitations. He denied any headaches. He denied any visual disturbance, although does have a history of glaucoma, macular degeneration, and cataracts. The patient has chronic history of neuropathy in the lower extremity as well as upper extremity tremors. The patient is receiving blood transfusion for symptomatic anemia. PAST MEDICAL HISTORY: As mentioned in the HPI, in addition to hypertension, bilateral carotid artery disease. PAST SURGICAL HISTORY: He had knee surgery on the left, bilateral cataract surgery. He had surgery for a detached right retina. FAMILY HISTORY: The patient had underlying blood disorder. Other family members had cancer. No family history of stroke or seizures. SOCIAL HISTORY: The patient drinks alcohol occasionally, possibly 3 drinks per week. He denied any tobacco history. REVIEW OF SYSTEMS: A 10-point review of systems was obtained and otherwise negative except for what was mentioned in the HPI. PHYSICAL EXAM: Please add the vitals. General: A well-nourished, well-developed man, who is currently receiving blood transfusion for anemia that is symptomatic. He is alert, cooperative, in apparent distress. Normocephalic without any obvious abnormality. His conjunctivae and cornea are clear without any icterus. Neck is supple and symmetrical. He does have a right mild carotid bruit. Clear to auscultation bilaterally, nonlabored. Mild holosystolic murmur with normal S1, S2. Radial pulses were palpable. Extremities: He has prominent pes cavus and hammertoes. There is a large left thigh hematoma extending to the distal thigh in the anterior and medial region. Skin: No skin lesions or laceration. He has normal affect with normal mood. He is very easy to establish rapport. Neurological Examination: The patient is awake, alert, and oriented to person, place, time, and general circumstances. The speech and language including expression, naming, repetition, and comprehension were assessed and found to be normal. Cranial Nerves: There was normal confrontation bilaterally. Pupils were mid range and reactive to light, normal consensual response. Sensation is intact on forehead, cheeks, and jaw mostly to light touch. There was no facial asymmetry. The patient is able to hear throughout the history process and the palate and the tongue were symmetric without any evidence of fasciculation. Motor Exam: No abnormal movements except for limited range of motion of the left hip region due to the hematoma. Otherwise, there is normal bulk and tone throughout. Strength is intact 5/5 in the upper and lower extremities. Reflexes trace in the brachioradialis, biceps, triceps, with absent patella and ankle reflexes. Plantar responses are flexor bilaterally. Sensation: Distal to proximal sensory grading up to the knees to light touch and pinprick bilaterally. He has absent vibratory sensation and impaired proprioception at the great toes. Coordination: Normal [id number] bilaterally. Gait was not assessed as the patient was receiving blood transfusion. DIAGNOSTIC STUDIES/LAB DATA: Imaging: CT head without contrast was completed on 02/25/18 - this was personally reviewed. There was mild chronic small vessel ischemic disease with no acute intracranial process evident. Last hemoglobin was 8.6 and hematocrit was 25. INR was 1.17. ASSESSMENT AND PLAN: This is a pleasant 87-year-old man, who has history of carotid disease, the severity is unclear without having the actual records, who presented to the hospital with symptoms of dizziness, mostly related to orthostasis and left thigh hematoma. The patient is followed by a vascular neurologist, Dr. Doll, telephone number [phone]. Please obtain records from the office. At this point, the patient is most likely having symptomatic anemia and orthostatic hypotension. He does not complain of any focal neurological deficits to suspect any transient ischemic attack or a stroke. His CT head was unremarkable. It is reasonable to discontinue one of his antiplatelet therapy for now. He was continued on aspirin 325 mg daily, but I decreased that to 81 mg daily. We will need to stabilize his current anemic state. If he continues to have anemia despite blood transfusion, then we hvae discontinue the aspirin. I will wait for the records for further recommendations. We can probably resume and continue the aspirin 81 mg with Lipitor. The patient unfortunately is at high risk of developing a stroke, but the benefit of weaning off or reducing the antiplatelet therapy outweighs the risks considering that he is needing blood transfusion at this time to correct his anemia. Consider ordering a PT consult once he gets better. Fall precautions. 1. Left thigh hematoma 2. Orthostatic hypotension 3. Hereditary neuropathy 4. Severe carotid disease 5. History of hypertension TIME SPENT: I spent approximately 70 minutes obtaining history, examining the patient, and discussing the treatment plan with the patient and the primary team. [id number]/[facility] #: [id number] MTDD
--- NOTE | 2018-02-27 17:29 | PN ---
Subjective Date of Service: 02/27/18 Interval History: alert, no distress, no complaints. feels the leg pain is improving but he hasn' t been out of bed. he feels lightheaded even when he sits up in bed. No blurry vision, no weakness, no numbness or tingling. Family History: Unchanged from Admission Social History: Unchanged from Admission Objective Active Medications: Acetaminophen (Tylenol Tab*) 650 mg PO Q4H PRN PRN Reason: FEVER/PAIN Aspirin (Aspirin 81 Mg Chew Tab*) 81 mg PO DAILY [facility] Atorvastatin Calcium (Lipitor*) 80 mg PO DAILY [facility] Last Admin: 02/27/18 07:33 Dose: 80 mg Brimonidine Tartrate (Alphagan P 0.1% (Nf)) 1 drop BOTH EYES BID [facility] Last Admin: 02/27/18 07:33 Dose: 1 drop Brinzolamide (Azopt 1% Ophth Taisha(Nf)) 1 drop RIGHT EYE BID [facility] Last Admin: 02/27/18 07:33 Dose: 1 drop Cyanocobalamin (Vitamin B12 Inj *) 1,000 mcg IM MONTHLY [facility] Finasteride (Proscar Tab*) 5 mg PO DAILY [facility] Last Admin: 02/27/18 07:33 Dose: 5 mg Multivitamins/Minerals (Theragran/Minerals Tab*) 1 tab PO DAILY [facility] Last Admin: 02/27/18 07:33 Dose: 1 tab Ondansetron HCl (Zofran Odt Tab*) 4 mg PO Q6H PRN PRN Reason: NAUSEA/VOMITING Tramadol HCl (Ultram*) 50 mg PO Q6H PRN PRN Reason: PAIN Vital Signs - 8 hr 02/27/18 02/27/18 02/27/18 11:39 16:33 16:44 Temperature 98.0 F 98.4 F Pulse Rate 100 90 Respiratory 22 22 Rate Blood Pressure 108/70 151/89 (mmHg) O2 Sat by Pulse 100 100 Oximetry Oxygen Devices in Use Now: None Appearance: alert, nontoxic Eyes: No Scleral Icterus Ears/Nose/Mouth/Throat: NL Teeth, Lips, Gums Neck: - - bruit over right carotid, no bruit over left Respiratory: Symmetrical Chest Expansion and Respiratory Effort Cardiovascular: NL Sounds; No Murmurs; No JVD Abdominal: NL Sounds; No Tenderness; No Distention, No Hepatosplenomegaly Lymphatic: No Cervical Adenopathy Extremities: No Edema Skin: - - large hematoma over left thigh anteriorly and posteriorly, distal pulses 2+ b/l Neurological: Alert and Oriented x 3, NL Sensation Result Diagrams: 02/27/18 08:40 02/26/18 06:17 Diagnostic Imaging: Patient Name: MICHELLE BRIZUELA Medical Record#: [id number] Ordering Physician: Stevie Barrios [employer]IN FILM TECHNICIAN Acct.#: [id number] : 1930 Age: 87 Sex: M Location: [address] [place] [address] MEDICAL Exam Date: 02/25/182235 ADM Status: ADM IN Order Information: CT EXTREMITY LOWER LEFT WO Accession Number: [id number] CPT: 63093 INDICATION: Hematoma. COMPARISON: There are no prior studies available for comparison. TECHNIQUE: Contiguous axial sections were obtained of the left femur. Images were reconstructed in the sagittal and coronal planes. FINDINGS: The femur appears intact. There is a small fracture fragment present along the superior pole of the patella consistent with an old fracture. No acute fracture is seen. There is a complex joint effusion within the knee. There is a complex popliteal fossa cyst measuring 3.8 x 2.2 cm in size. 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 There appears to be a large partially circumferential mass present along the mid and distal portion of the femur centered along the anterior lateral aspect of the femur. This is not well-defined on this noncontrast study although measures approximately 9.1 x 7.0 x 18.0 cm in size. This is a nonspecific finding although would be most consistent with a hematoma. Recommend clinical correlation. There is a left inguinal hernia containing a small portion of the colon which is nondistended. No bowel wall thickening is seen. IMPRESSION: 1. LARGE PARTIALLY CIRCUMFERENTIAL MASS SURROUNDING MID AND DISTAL FEMUR. THIS IS A NONSPECIFIC FINDING ALTHOUGH MOST CONSISTENT WITH A HEMATOMA. RECOMMEND CLINICAL CORRELATION AND FOLLOW-UP. 2. COMPLEX JOINT EFFUSION WITHIN THE KNEE. 3. POPLITEAL FOSSA CYST. 4. LEFT INTERNAL HERNIA. <Electronically signed by Abdelrahman Peguero MD in [place]> 02/26/18740 Dictated By: Abdelrahman Peguero MD Dictated Date/Time: 02/26/18740 Transcribed Date/Time: 02/26/18727 Copy to: CC:Jailyn Guevara DO; Shawn Hodgson MD; Garett Caldwell MD; Stevie Barrios NP Imaging - [facility] Imaging - [facility] [address] [place], [place] [id number] [place] [id number] [place] [address] ph ([phone]) ph ([phone]) ph ([phone]) 1 of 2 Assess/Plan/Problems-Billing Assessment: This is an 87 year old male patient that presents with dizziness and large LLE hematoma, found to have symptomatic anemia and orthostasis. - Patient Problems (1) Anemia due to acute blood loss Current Visit: Yes Status: Acute Code(s): D62 - ACUTE POSTHEMORRHAGIC ANEMIA SNOMED Code(s): 000067927 Comment: admission hgb was 8.6, now s/p 2U PRBCs, it is still 8.6 transfuse again today given significant symptoms that neurology do not believe to be neurologic in nature (2) History of carotid artery stenosis Current Visit: Yes Status: Acute Code(s): Z86.79 - PERSONAL HISTORY OF OTHER DISEASES OF THE CIRCULATORY SYSTEM SNOMED Code(s): 685594935 Comment: Neurology consulted today for risk stratification of holding antiplatelets in setting of hematoma Effient and ASA have been on hold Awaiting records from [place] CT showed no acute CVA (3) Orthostasis Current Visit: Yes Status: Acute Code(s): I95.1 - ORTHOSTATIC HYPOTENSION SNOMED Code(s): 952819389 Comment: likely due to acute anemia, repeat 1U PRBC today and recheck hgb in the morning however, he has had history of orthostasis appreciate PT consult (4) History of TIA (transient ischemic attack) Current Visit: No Status: Acute Comment: asa on hold continue lipitor Status and Disposition: inpatient.
[2018-02-28 05:31] LABS: ABS Basophils 0.1 10^3/ul (0-0.2); ABS Eosinophils 0.1 10^3/ul (0-0.6); ABS Monocytes 0.8 10^3/ul (0-0.8); ABS Neutrophils 4.8 10^3/ul (1.5-7.7); ABS Nucleated RBC 0 10^3/ul; Eosinophil % 1.1 % (0-6); Hematocrit 26 % (42-52); Hemoglobin 9.2 g/dl (14.0-18.0); Lymphocyte % 25.9 % (25-47); Mean Corpuscular HGB Conc 35 g/dl (31-36); Mean Corpuscular Hemoglobin 33 pg (27-31); Mean Corpuscular Volume 94 fL (80-94); Mean Platelet Volume 7.7 um3 (7.4-10.4); Nucleated Red Blood Cells % 0; Platelet Count 179 10^3/ul (150-450); Red Blood Count 2.77 10^6/ul (4.0-5.4); Red Cell Distribution Width 18 % (10.5-15); White Blood Count 7.7 10^3/ul (3.5-10.8)
[2018-02-28 05:56] LABS: EGFR Non-African American 117.8 (>60)
[2018-02-28] MEDS: Atorvastatin* 80 MG TAB PO SCH (08:30)
[2018-02-28] MEDS: PTO Brimonidine P 0.1%(NF) 1 DROP BTL BOTH EYES SCH ×2 (08:30→20:43)
[2018-02-28] MEDS: Multivitamins/Minerals TAB PO SCH (08:30)
[2018-02-28] MEDS: Finasteride TAB* 5 MG PO SCH (08:30)
[2018-02-28] MEDS: PTO Brinzolamide 1% OPHTH SOL(NF) BTL RIGHT EYE SCH ×2 (08:30→20:43)
[2018-02-28] MEDS: Aspirin 81 mg CHEW TAB* 81 MG TAB.CHEW PO SCH (08:30)
[2018-02-28] MEDS ORDERED: Polyethylene Glycol 3350* 17 GM PACKET PO PRN (11:07)
--- NOTE | 2018-02-28 13:26 | PN ---
Subjective Date of Service: 02/28/18 Interval History: Mr. Brizuela shared some concern with me about an episode of confusion this morning when he was eating breakfast. He was trying to fill out his menu for tomorrow morning and struggled to figure out how to use the pencil. He also had some tingling in both hands which has since resolved. He now feels okay but worried about this episode. Family History: Unchanged from Admission Social History: Unchanged from Admission Objective Active Medications: Acetaminophen (Tylenol Tab*) 650 mg PO Q4H PRN PRN Reason: FEVER/PAIN Aspirin (Aspirin 81 Mg Chew Tab*) 81 mg PO DAILY [facility] Last Admin: 02/28/18 08:30 Dose: 81 mg Atorvastatin Calcium (Lipitor*) 80 mg PO DAILY [facility] Last Admin: 02/28/18 08:30 Dose: 80 mg Brimonidine Tartrate (Alphagan P 0.1% (Nf)) 1 drop BOTH EYES BID [facility] Last Admin: 02/28/18 08:30 Dose: 1 drop Brinzolamide (Azopt 1% Ophth Taisha(Nf)) 1 drop RIGHT EYE BID [facility] Last Admin: 02/28/18 08:30 Dose: 1 drop Cyanocobalamin (Vitamin B12 Inj *) 1,000 mcg IM MONTHLY [facility] Finasteride (Proscar Tab*) 5 mg PO DAILY [facility] Last Admin: 02/28/18 08:30 Dose: 5 mg Multivitamins/Minerals (Theragran/Minerals Tab*) 1 tab PO DAILY [facility] Last Admin: 02/28/18 08:30 Dose: 1 tab Ondansetron HCl (Zofran Odt Tab*) 4 mg PO Q6H PRN PRN Reason: NAUSEA/VOMITING Polyethylene Glycol/Electrolytes (Miralax*) 17 gm PO DAILY PRN PRN Reason: CONSTIPATION Last Admin: 02/28/18 11:34 Dose: 17 gm Tramadol HCl (Ultram*) 50 mg PO Q6H PRN PRN Reason: PAIN Vital Signs - 8 hr 02/28/18 02/28/18 07:33 08:00 Temperature 98.6 F Pulse Rate 75 Respiratory 22 16 Rate Blood Pressure 142/63 (mmHg) O2 Sat by Pulse 99 Oximetry Oxygen Devices in Use Now: None Appearance: alert, no distress, nontoxic, oriented Eyes: No Scleral Icterus, - - no nystagmus Ears/Nose/Mouth/Throat: NL Teeth, Lips, Gums Neck: NL Appearance and Movements; NL JVP, - - bruit over right carotid, none over left Respiratory: Symmetrical Chest Expansion and Respiratory Effort Cardiovascular: No Edema Abdominal: NL Sounds; No Tenderness; No Distention, No Hepatosplenomegaly Lymphatic: No Cervical Adenopathy Extremities: No Edema, - - left thigh hematoma from pop fossa to buttocks and some extension anteriorly, but improving Skin: No Rash or Ulcers Neurological: Alert and Oriented x 3, NL Muscle Strength and Tone Result Diagrams: 02/28/18 05:10 02/28/18 05:10 Diagnostic Imaging: Patient Name: MICHELLE BRIZUELA Medical Record#: [id number] Ordering Physician: Stevie Barrios INTERSTATE BUS DRIVER Acct.#: [id number] : 1930 Age: 87 Sex: M Location: [address] [place] [address] MEDICAL Exam Date: 02/25/182235 ADM Status: ADM IN Order Information: CT EXTREMITY LOWER LEFT WO Accession Number: [id number] CPT: 15310 INDICATION: Hematoma. COMPARISON: There are no prior studies available for comparison. TECHNIQUE: Contiguous axial sections were obtained of the left femur. Images were reconstructed in the sagittal and coronal planes. FINDINGS: The femur appears intact. There is a small fracture fragment present along the superior pole of the patella consistent with an old fracture. No acute fracture is seen. There is a complex joint effusion within the knee. There is a complex popliteal fossa cyst measuring 3.8 x 2.2 cm in size. 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 There appears to be a large partially circumferential mass present along the mid and distal portion of the femur centered along the anterior lateral aspect of the femur. This is not well-defined on this noncontrast study although measures approximately 9.1 x 7.0 x 18.0 cm in size. This is a nonspecific finding although would be most consistent with a hematoma. Recommend clinical correlation. There is a left inguinal hernia containing a small portion of the colon which is nondistended. No bowel wall thickening is seen. IMPRESSION: 1. LARGE PARTIALLY CIRCUMFERENTIAL MASS SURROUNDING MID AND DISTAL FEMUR. THIS IS A NONSPECIFIC FINDING ALTHOUGH MOST CONSISTENT WITH A HEMATOMA. RECOMMEND CLINICAL CORRELATION AND FOLLOW-UP. 2. COMPLEX JOINT EFFUSION WITHIN THE KNEE. 3. POPLITEAL FOSSA CYST. 4. LEFT INTERNAL HERNIA. <Electronically signed by Abdelrahman Peguero MD in [place]> 02/26/18740 Dictated By: Abdelrahman Peguero MD Dictated Date/Time: 02/26/18740 Transcribed Date/Time: 02/26/18727 Copy to: CC:Jailyn Guevara DO; Shawn Hodgson MD; Garett Caldwell MD; Stevie Barrios NP Imaging - [facility] Imaging - [facility] Imaging - [facility] [address] [address] ph ([phone]) ph ([phone]) ph ([phone]) 1 of 2 Assess/Plan/Problems-Billing Assessment: This is an 87 year old male patient that presents with dizziness and large LLE hematoma, found to have symptomatic anemia and orthostasis. - Patient Problems (1) Anemia due to acute blood loss Current Visit: Yes Status: Acute Code(s): D62 - ACUTE POSTHEMORRHAGIC ANEMIA SNOMED Code(s): 381754671 Comment: he has received 3 U PRBCs this admission, most recently yesterday with minimally improved hgb recheck today and if not improving, will discuss the case with IR to see if an arterial study would be possible that could allow for embolization (2) History of carotid artery stenosis Current Visit: Yes Status: Acute Code(s): Z86.79 - PERSONAL HISTORY OF OTHER DISEASES OF THE CIRCULATORY SYSTEM SNOMED Code(s): 553331138 Comment: Evaluated by neurology yesterday, who recommended resuming asa at 81mg daily I am concerned about his symptoms this morning and appreciate re-evaluation by neurology. In the meantime, I will check an MRI and carotid ultrasounds while we await records from [place]. Continue asa and high potency statin I will attempt to reach his neurologist Dr. Doll as well. (3) Orthostasis Current Visit: Yes Status: Acute Code(s): I95.1 - ORTHOSTATIC HYPOTENSION SNOMED Code(s): 798635548 Comment: no orthostasis here--symptoms are not related (4) History of TIA (transient ischemic attack) Current Visit: No Status: Acute Comment: noted. no history of CVA and admission CT negative. check MRI as above. Status and Disposition: inpatient.
[2018-02-28 14:19] LABS: Hematocrit 27 % (42-52); Hemoglobin 9.2 g/dl (14.0-18.0); Mean Corpuscular HGB Conc 34 g/dl (31-36); Mean Corpuscular Hemoglobin 33 pg (27-31); Mean Corpuscular Volume 96 fL (80-94); Mean Platelet Volume 7.9 um3 (7.4-10.4); Platelet Count 205 10^3/ul (150-450); Red Blood Count 2.81 10^6/ul (4.0-5.4); Red Cell Distribution Width 18 % (10.5-15); White Blood Count 8.2 10^3/ul (3.5-10.8)
--- NOTE | 2018-02-28 15:16 | RAD ---
HISTORY: TIA COMPARISONS: CTA dated November 01, 2016 TECHNIQUE: Multiple transverse and longitudinal ultrasound images were obtained of the carotid and vertebral arteries bilaterally, using grayscale, color Doppler, and spectral Doppler imaging. FINDINGS: Measurement of carotid stenosis is based on flow velocity parameters that correlate the residual internal carotid artery diameter with [place] Symptomatic Carotid Endarterectomy Trial (NASCET)-based stenosis levels. RIGHT: Intima: There is diffuse intimal thickening with more focal atheroma formation at the bifurcation. Velocities: Right internal carotid artery maximum peak systolic velocity: 359 cm/s Right common carotid artery maximum peak systolic velocity: 101 cm/s Right internal carotid artery/common carotid artery ratio: 3.6 Waveforms: There is spectral broadening consistent with turbulent flow. Right Vertebral: The right vertebral artery flow is antegrade. LEFT: Intima: Again noted is occlusion of the left internal carotid artery. Velocities: Left internal carotid artery maximum peak systolic velocity: N/A Left common carotid artery maximum peak systolic velocity: 136 cm/s Left internal carotid artery/common carotid artery ratio: N/A Waveforms: There is no spectral broadening. Left Vertebral: The left vertebral artery flow is antegrade. OTHER FINDINGS: None. IMPRESSION: 1. ATHEROSCLEROSIS. 2. AGAIN NOTED IS OCCLUSION OF LEFT INTERNAL CAROTID ARTERY. 3. THERE ARE ELEVATED PEAK SYSTOLIC VELOCITIES CONSISTENT WITH RIGHT INTERNAL CAROTID ARTERY STENOSIS BETWEEN 70% AND 99% BY NASCET CRITERIA. CPT II Codes: 3100F
--- NOTE | 2018-02-28 16:12 | RAD ---
HISTORY: Confusion COMPARISONS: Head CT dated February 25, 2018 TECHNIQUE: The following sequences were obtained of the head: Sagittal T1-weighted images, axial T2-weighted images, axial FLAIR images, axial susceptibility weighted images, axial T1-weighted images. Additionally, axial diffusion-weighted images were obtained with calculated apparent diffusion coefficients. FINDINGS: HEMORRHAGE/INFARCT: There is no hemorrhage or acute infarct. MASSES/SHIFT: There is no mass or shift. EXTRA-AXIAL SPACES/MENINGES: There are no extra-axial fluid collections. SULCI AND VENTRICLES: There is mild diffuse and proportional enlargement of the sulci and ventricles. CEREBRUM: There are multiple scattered small foci of elevated T2/FLAIR signal within the periventricular and subcortical white matter. BRAINSTEM: There are no focal parenchymal abnormalities. CEREBELLUM: There are no focal parenchymal abnormalities. The cerebellar tonsils are normal in size and position. SELLA: The sella is normal. PINEAL: The pineal region is clear. CP ANGLE/TEMPORAL BONES: The labyrinthine structures are grossly normal. VESSELS: Normal flow-voids are noted within the visualized vertebral vasculature. DIFFUSION ABNORMALITIES: There are no diffusion abnormalities. PARANASAL SINUSES/MASTOIDS: The paranasal sinuses are clear. There are small bilateral mastoid effusions. ORBITS: The orbits are unremarkable. BONES AND SOFT TISSUE: No bone or soft tissue abnormalities are noted. OTHER: None IMPRESSION: 1. MILD DIFFUSE INVOLUTIONAL CHANGE. 2. THERE ARE MULTIPLE FOCI OF ELEVATED T2/FLAIR SIGNAL WITHIN THE PERIVENTRICULAR AND SUBCORTICAL WHITE MATTER. WHILE THESE FINDINGS ARE NONSPECIFIC, THEY CAN BE SEEN IN ASSOCIATION WITH MIGRAINE HEADACHE, THE SEQUELA OF PREVIOUS INFECTION OR INFLAMMATION, AND CHRONIC SMALL VESSEL ISCHEMIA. DEMYELINATING DISEASE IS ALSO WITHIN THE DIFFERENTIAL, BUT IS CONSIDERED LESS LIKELY IN THE ABSENCE OF THE APPROPRIATE CLINICAL PRESENTATION. 3. NO RESTRICTED DIFFUSION TO SUGGEST ACUTE INFARCT. 4. SMALL BILATERAL MASTOID EFFUSIONS.
[2018-02-28 18:48] LABS: Hematocrit 26 % (42-52); Hemoglobin 8.8 g/dl (14.0-18.0); Mean Corpuscular HGB Conc 35 g/dl (31-36); Mean Corpuscular Hemoglobin 33 pg (27-31); Mean Corpuscular Volume 96 fL (80-94); Mean Platelet Volume 7.2 um3 (7.4-10.4); Platelet Count 193 10^3/ul (150-450); Red Blood Count 2.68 10^6/ul (4.0-5.4); Red Cell Distribution Width 18 % (10.5-15); White Blood Count 8.3 10^3/ul (3.5-10.8)
--- NOTE | 2018-02-28 19:03 | RAD ---
HISTORY: Slurred speech COMPARISONS: February 25, 2018, MRI dated February 28, 2018 TECHNIQUE: Multiple contiguous axial CT scans were obtained of the head without intravenous contrast. FINDINGS: HEMORRHAGE/INFARCT: There is no hemorrhage or acute infarct. MASSES/SHIFT: There is no mass or shift. EXTRA-AXIAL SPACES: There are no extra-axial fluid collections. SULCI AND VENTRICLES: There is mild diffuse and proportional enlargement of the sulci and ventricles. CEREBRUM: There is mild, patchy hypoattenuation of the periventricular and subcortical white matter. BRAINSTEM: There are no focal parenchymal abnormalities. CEREBELLUM: There are no focal parenchymal abnormalities. VESSELS: There is calcification of the cavernous segments of the internal carotid arteries bilaterally and of the distal left vertebral artery. PARANASAL SINUSES: The paranasal sinuses are clear. ORBITS: The orbits are unremarkable. BONES AND SOFT TISSUE: No bone or soft tissue abnormalities are noted. OTHER: None IMPRESSION: 1. NO ACUTE INTRACRANIAL PATHOLOGY. 2. MILD DIFFUSE INVOLUTIONAL CHANGE WITH CHRONIC SMALL VESSEL ISCHEMIC CHANGES. PRELIMINARY FINDINGS WERE DISCUSSED WITH DR. MARIN AT APPROXIMATELY 6:59 PM ON FEB 28 2018.
[2018-02-28] MEDS ORDERED: Prasugrel (NF) 10 MG PO ONE (19:27)
[2018-02-28] MEDS ORDERED: Aspirin TAB* 325 MG PO ONE (19:28)
[2018-02-28] MEDS ORDERED: NS 0.9% 500 ML* 500 ML IV ONE ×2 (19:30→21:51)
--- NOTE | 2018-02-28 19:47 | PN ---
Hospitalist Progress Note Date of Service: 02/28/18 CAT code called for garbled speech. Mr. Lu was on the phone with his son when his speech became incoherent. When I arrived, he was speaking nonsensibly , was unable to name objects or repeat phrases, so we initiated a code hurtado. His BP was 159/65 and his BG was 135. NIH stroke scale was 3. A stat CT head was negative for acute CVA or bleed. I discussed the case with neurology, who recommended ASA and effient now, transfer to the ICU, and IVF to keep systolic BP >140 and under 200. I called Mr. Lu's son Garfield to update him. Dr. Del Rio discussed transfer to [place] with Garfield, but Garfield maintains the decision their family made last year to avoid surgical intervention. I re- evaluated Mr. Lu, who is now able to name objects that he could not name at the time of code hurtado, and is able to repeat "no ifs, ands or buts," which he was not able to do at the time of code hurtado as well. I suspect this likely represented a TIA vs. an early stroke that we have not yet seen on the CT. Will sign out to Dr. Guevara for tonight.
[2018-03-01 05:30] LABS: ABS Basophils 0.1 10^3/ul (0-0.2); ABS Eosinophils 0.1 10^3/ul (0-0.6); ABS Monocytes 0.8 10^3/ul (0-0.8); ABS Neutrophils 4.8 10^3/ul (1.5-7.7); ABS Nucleated RBC 0 10^3/ul; Eosinophil % 1.8 % (0-6); Hematocrit 27 % (42-52); Hemoglobin 9.1 g/dl (14.0-18.0); Lymphocyte % 25.5 % (25-47); Mean Corpuscular HGB Conc 34 g/dl (31-36); Mean Corpuscular Hemoglobin 33 pg (27-31); Mean Corpuscular Volume 96 fL (80-94); Mean Platelet Volume 7.2 um3 (7.4-10.4); Nucleated Red Blood Cells % 0.1; Platelet Count 195 10^3/ul (150-450); Red Blood Count 2.76 10^6/ul (4.0-5.4); Red Cell Distribution Width 18 % (10.5-15); White Blood Count 7.7 10^3/ul (3.5-10.8)
[2018-03-01 05:45] LABS: EGFR Non-African American 115.7 (>60)
[2018-03-01] MEDS: PTO Brimonidine P 0.1%(NF) 1 DROP BTL BOTH EYES SCH ×2 (08:10→21:25)
[2018-03-01] MEDS: Atorvastatin* 80 MG TAB PO SCH (08:10)
[2018-03-01] MEDS: PTO Brinzolamide 1% OPHTH SOL(NF) BTL RIGHT EYE SCH ×2 (08:10→21:25)
[2018-03-01] MEDS: Finasteride TAB* 5 MG PO SCH (08:10)
[2018-03-01] MEDS: Aspirin 81 mg CHEW TAB* 81 MG TAB.CHEW PO SCH (08:10)
[2018-03-01] MEDS: Multivitamins/Minerals TAB PO SCH (08:10)
--- NOTE | 2018-03-01 11:09 | PN ---
PROGRESS NOTE: DATE OF SERVICE: 02/28/18 Neurology is following for the patient's symptoms of intermittent chronic lightheadedness. HOSPITALIST PROVIDER: Suyapa Gomes NP. INTERVAL HISTORY: The patient is a pleasant 87-year-old man with history of bilateral carotid disease (total occlusion on the left and severely stenotic on the right) who was on Effient and high-dose aspirin and as a subsequent developed left thigh hematoma causing severe anemia. The patient received 3 units of PRBC. He is on Effient after failing clopidogrel and responsiveness testing determinted that he may have gene variants that are not responsive to clopidogrel. The patient is overall stable from the neurology standpoint. He continues to complain of chronic lightheadedness. This has not been a problem here in the hospital. The lightheadedness typically last for minutes, mostly 1 to 2 minutes. He recalls the lightheadedness being exacerbated when he is standing up. He has a diagnosis of orthostatic hypotension and was on sodium supplements in the past. However, the lightheadedness is occurring now at rest or sitting down. He notices occasionally that whenever he is checking his blood pressure in the morning, if his systolic blood pressure drops to the low 100s or even high 90s, then the symptoms will initiate. He never had any seizure-like activity. He did have one episode a few weeks ago where he was typing on his iPhone and could not get the letters out. He was having trouble using the phone suddenly. This improved after one hour. He denied any acute visual disturbance, focal weakness, or impairment in his swallow or speech evaluation. REVIEW OF SYSTEMS: The patient denied any chest pain, shortness of breath, or palpitation. PHYSICAL EXAMINATION: Vitals: Temperature 98.6, pulse of 90, respirations 16, oxygen saturation of 97%, blood pressure of 157/82. General: Well-appearing elderly man in no acute distress, sitting in a chair comfortably. HEENT: Atraumatic, normocephalic. No temporalis tenderness on either side. Cardiovascular: Regular rate and rhythm. Pulmonary: Clear to auscultation bilaterally. Extremities: Hammertoes at high arches. Neurological Examination : The patient is awake, alert, and oriented to person, place, time, and general circumstance. His medical knowledge is quite impressive. He is able to describe his symptoms and manifestations in great detail. His speech and language including expression, naming, repetition, and comprehension were assessed and found to be normal. Cranial nerves are normal to confrontation bilaterally. Pupils were mid range and reactive to light. Normal consensual response. Sensation is intact in the forehead, cheeks, and jaw mostly to touch. There is no facial asymmetry. The patient is able to hear throughout the history process. On motor examination, he has mild action induced tremors. There is absolutely no cogwheel rigidity. Otherwise, there is normal bulk and tone. Sensation is intact 5/5 in the upper and lower extremities. Reflexes are trace in the biceps and triceps with absent patellar and ankle reflexes. Sensation distal to proximal sensory gradient up to the knees to light touch and pinprick bilaterally. DIAGNOSTIC TESTING: Imaging: MRI of the brain completed today without contrast showed no acute intracranial disease, but there are multiple foci of elevated T2 FLAIR signal within the periventricular and subcortical white matter , which is a nonspecific finding. He had an ultrasound of the carotids completed on 02/28/18 showed complete total occlusion of the left ICA with carotid stenosis at 70%-99% on the right ICA, complete occlusion of the left ICA. The right and left vertebral artery flows antegrade. LABORATORY VALUES: Hemoglobin today is 9.2, hematocrit of 27. ASSESSMENT AND PLAN: This is a pleasant 87-year-old man with: 1. Lightheadedness, most likely related to cerebral hypoperfusion in the setting of left carotid occlusion and right severe carotid stenosis. 2. Orthostatic hypotension. 3. Hereditary neuropathy. 4. Left thigh hematoma. 5. Transient episode of confusion - he has had chronic episode in the past of inability to focus that lasted a few minutes. He is worried that this can be related to his carotid occlusions, which I think that it is. However, to further widen the differential, I will order an EEG to evaluate for any epileptiform abnormalities. Dr. Doll, the patient's neurologist, was contacted by our hospitalist who recommended to keep the patient on the dual antiplatelet therapy with Effient and aspirin. Unfortunately due to the left thigh hematoma, we have decided to hold the Effient for now and continue a low dose aspirin. However, starting tomorrow if the hemoglobin is still stable, I recommend resuming the Effient but a lower dose of aspirin. In addition, we should continue Lipitor. It is important to make sure the patient's blood pressure remains within the higher normal range. I would not even treat the blood pressure between 130 to less than 150. The patient needs a higher blood pressure to improve cerebral perfusion. I discussed seeking a second opinion from vascular surgery for the severe right ICA stenosis. However, the patient does not want any vascular intervention as he expressed to me today. I discussed fall precautions. Continue PT evaluation and treatment. The patient will need to go to rehabilitation or detention facility. I discussed these recommendations with the patient's provider, Suyapa and answered all her questions. I will continue to follow. [id number]/CPS #: [id number] MTDD
[2018-03-01] MEDS ORDERED: NS 0.9% 1000 ML* 1,000 ML IV SCH (12:15)
--- NOTE | 2018-03-01 12:57 | RAD ---
HISTORY: Aphasia and right arm weakness COMPARISONS: None TECHNIQUE: The following sequences were obtained of the head: Axial diffusion-weighted images with calculated apparent diffusion coefficient maps. FINDINGS: The study is limited MRI of the brain, consisting of only diffusion-weighted imaging. There is a small focus of restricted diffusion within the right precentral gyrus on axial image 27. There is no other appreciable T2* signal abnormality on the diffusion-weighted sequences. IMPRESSION: 1. LIMITED STUDY. 2. SMALL FOCUS OF RESTRICTED DIFFUSION WITHIN THE RIGHT PRECENTRAL GYRUS CONSISTENT WITH SUBACUTE INFARCT.
--- NOTE | 2018-03-01 13:33 | PN ---
NEUROLOGY PROGRESS NOTE: DATE OF SERVICE: 03/01/18 PROVIDER: Ibrahima Del Rio MD HISTORY: Neurology is following for the evaluation of stroke-like symptoms, anemia, and severe carotid disease. CHIEF COMPLAINT: Word-finding difficulty today. SUBJECTIVE: Mr. Lu developed stroke-like symptoms last night. Code Elena was initiated. His NIH Stroke Scale was 3. This is a new problem, but he has had similar symptoms in the past. Patient's blood pressure at that time was systolic 153/88. Accu-Chek was in the 130s. A stat CT head was obtained and was reported to show no acute intracranial disease. I personally reviewed the imaging. There is a subtle hypodensity in the left frontal region, but this can be chronic. I was consulted by Isis last night. I called the patient's son Garfield who lives in [place]. I had a long conversation with Garfield regarding the plan of care. Garfield mentioned that Mr. Lu had made a decision a year and half ago not to undergo any intervention or any surgical procedures for the right carotid stenosis and was willing to take the risk to be on antiplatelet therapy with Effient and aspirin. Since that decision was made when he was healthy and not in the current state, Garfield did not think that his father would want any further invasive interventions. Plus, his NIH Stroke Scale was reported to be 3. He is definitely not a candidate for IV tPA given the acute left thigh hematoma requiring blood transfusion. He would not be a candidate for mechanical thrombectomy either due to the low NIH Stroke Scale plus we know that the left ICA is occluded and we suspect that he is having a small jkzbcv-sn-ktaumm embolic stroke involving the ipsilateral side involving the left parietofrontal lobe. This morning, Mr. Lu was up and having breakfast. He stated that he was feeling fine until family arrived and noticed that he was having hard time producing words. He actually had an episode with me today where he was having extreme difficulty coming up with words and this is definitely different from when I examined him yesterday afternoon. He does not complain of any focal weakness. He denied any double vision or blurry vision. He did endorse mild chest pressure this morning mainly involving the right and left side of the chest and feeling generalized fatigued and tired. MEDICATIONS: 1. Acetaminophen. 2. Aspirin 81 mg. 3. Atorvastatin 80 mg. 4. Cyanocobalamin 1000 mcg monthly. 5. Ondansetron 4 mg p.o. 6. Effient 10 mg daily. 7. Tramadol 50 mg every 6 hours for pain. REVIEW OF SYSTEMS: As stated in subjective. OBJECTIVE: Vitals: Temperature 97.9, pulse of 77, respiratory rate of 18, oxygen 99%, blood pressure 153/88. General: Ill-appearing frail man in no acute distress. He is still very pleasant and coherent. Atraumatic and normo- cephalic. Conjunctivae and cornea are clear. Supple neck. Clear to auscultation bilaterally. Nonlabored breathing. He does have an irregular rhythm with normal, almost like PACs rather than atrial fibrillation. He does have P waves on telemetry when I reviewed it. Normal range of motion of extremities. No skin lesions or lacerations. He does have mild right asterixis , slight myoclonus with action. Neurological Examination: Mental status is awake and alert, oriented to person, place and time and general circumstances. He does have a mild expressive aphasia with dysarthria. He is able to comprehend, but had trouble repeating. He was able to name without any limitation. Cranial Nerves: Normal confrontation bilaterally. Pupils are mid range and reactive to light. Sensation is intact on the forehead, cheeks and jaw region bilaterally. He has very subtle facial droop on the right with flattening of the nasolabial fold. He is able to hear throughout the conversation and history process. Tongue is symmetric. He had positive pronator drift on the right upper extremity with mild weakness to elbow extension measuring 4/5. Otherwise, he has 5/5 strength throughout. Hammertoes. Reflexes trace to zero throughout. Sensation is intact to light touch throughout. No visual or tactile extension were noted. Coordination: Normal lyinxr-[id number]-dafw on the left with some motor dysmetria on the right. Did not assess gait as the patient was feeling fatigued. NIH Stroke Scale completed today at 9 a.m. was 3-4, positive 1+ motor strength on the right and 2+ for aphasia. LABORATORY DATA AND IMAGING STUDIES: Hemoglobin this morning is 9.1, which were now performed, 8.8 yesterday. Sodium 138. Creatinine of 0.65. Calcium 8.2. CT imaging as per HPI. ASSESSMENT: 1. 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 The mechanism of infarction is likely an rohsvj-sa-zovqqv emboli from ipsilateral carotid occlusion or due to cerebral hypoperfusion to that region. The patient was not a candidate for IV tPA due to recent bleeding. The patient is not interested in mechanical thrombectomy and refused any intervention 1-1/2 years ago for the carotids. I discussed the case in detail with his son Garfield as well as Dr. Isis Chambers last night. I also discussed the case with Dr. Magrret Coughlin who has covered me after hours. The patient was started back on Effient yesterday but not the high dose aspirin. He is continued on aspirin 81 mg daily. He continues to have subtle symptoms today. 2. Left thigh hematoma. 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 5. Dyslipidemia. 6. Hypertension. PLAN: The patient agreed to restart Effient and a lower dose of aspirin 81 mg daily with the risk of possibly having complication of hemorrhage in the left thigh again. We will closely monitor the hemoglobin and hematocrit on a daily basis to make sure it is not dropping. In addition, we want to keep his blood pressure between 140 to less than 180 today and we will slowly normalize his blood pressure within the next few days. We want to allow for increase cerebral perfusion. Keep his head not above 30 degrees and flat if possible. We need neuro checks and vitals at least every 4 hours. I ordered an MRI of the brain, only the DWI and ADC sequences. We had an MRI of the brain yesterday from prior to his symptoms. I spent a total of 35 minutes today and greater than 50% was spent directly reviewing the medical chart, obtaining history, examining the patient, and discussing the treatment plan and prognosis with the patient, and his son at bedside this morning. Also, discussed the case with patient's providers. I will continue to follow. [id number]/[facility] #: [id number] NONA
--- NOTE | 2018-03-01 16:22 | PN ---
Subjective Date of Service: 03/01/18 Interval History: Mr. Lu reports feeling quite well this afternoon. He denies weakness or difficulty expressing himself. He further denies chest pain, SOB, nausea, or abdominal pain. Family History: Unchanged from Admission Social History: Unchanged from Admission Objective Active Medications: Acetaminophen (Tylenol Tab*) 650 mg PO Q4H PRN Aspirin (Aspirin 81 Mg Chew Tab*) 81 mg PO DAILY [facility] Atorvastatin Calcium (Lipitor*) 80 mg PO DAILY [facility] Brimonidine Tartrate (Alphagan P 0.1% (Nf)) 1 drop BOTH EYES BID [facility] Brinzolamide (Azopt 1% Ophth Taisha(Nf)) 1 drop RIGHT EYE BID [facility] Cyanocobalamin (Vitamin B12 Inj *) 1,000 mcg IM MONTHLY [facility] Finasteride (Proscar Tab*) 5 mg PO DAILY [facility] Sodium Chloride (Ns 0.9% 1000 Ml*) 1,000 mls @ 75 mls/hr IV PER RATE [facility] Multivitamins/Minerals (Theragran/Minerals Tab*) 1 tab PO DAILY [facility] Ondansetron HCl (Zofran Odt Tab*) 4 mg PO Q6H PRN Polyethylene Glycol/Electrolytes (Miralax*) 17 gm PO DAILY PRN Tramadol HCl (Ultram*) 50 mg PO Q6H PRN Vital Signs: Temp Pulse Resp BP Pulse Ox 100.2 F 78 24 116/51 99 03/01/18 11:36 03/01/18 11:36 03/01/18 11:36 03/01/18 11:36 03/01/18 11:36 Oxygen Devices in Use Now: None Appearance: Male lying in bed in NAD Eyes: No Scleral Icterus Ears/Nose/Mouth/Throat: Mucous Membranes Moist Neck: Trachea Midline Respiratory: Symmetrical Chest Expansion and Respiratory Effort, Clear to Auscultation Cardiovascular: NL Sounds; No Murmurs; No JVD, No Edema Abdominal: NL Sounds; No Tenderness; No Distention Lymphatic: No Cervical Adenopathy Extremities: No Edema Skin: No Rash or Ulcers Neurological: Alert and Oriented x 3, NL Muscle Strength and Tone Nutrition: Taking PO's Result Diagrams: 03/01/18 05:11 03/01/18 05:11 Diagnostic Imaging: . Assess/Plan/Problems-Billing Assessment: Mr. Lu is an 87 year old male patient that presents with dizziness and large LLE hematoma, found to have symptomatic anemia and orthostasis. - Patient Problems (1) CVA (cerebral vascular accident) Comment: - Symptoms have waxed and waned, but he is now asymptomatic. - Appreciate neurology consultation. MRI brain today with small subacute infarct in the right precentral gyrus. - Significant carotid disease. CTA head and neck shows at the bifurcation the left internal carotid artery becomes completely occluded and the occlusion extends to the petrous carotid artery. Mixed attenuation atherosclerosis with high-grade right carotid bulb stenosis of 75%. Family do not want surgical intervention. - Continue ASA and Effient. (2) Anemia due to acute blood loss Comment: - Stable. He has received 3 U PRBCs this admission. (3) Hematoma of left lower extremity Comment: - CT as above - Margins marked, continue to monitor for additional bleeding - Plan to resume aspirin and effient due to subacute CVA (4) History of carotid artery stenosis Comment: - See above. (5) BPH (benign prostatic hyperplasia) Comment: - Continue Proscar. (6) DVT prophylaxis Comment: - SCDs, effient (7) Full code status Comment: Status and Disposition: inpatient.
[2018-03-02 06:10] LABS: ABS Basophils 0 10^3/ul (0-0.2); ABS Eosinophils 0.2 10^3/ul (0-0.6); ABS Lymphocytes 2.1 10^3/ul (1.0-4.8); ABS Monocytes 0.7 10^3/ul (0-0.8); ABS Neutrophils 6.2 10^3/ul (1.5-7.7); ABS Nucleated RBC 0 10^3/ul; Eosinophil % 1.7 % (0-6); Hematocrit 28 % (42-52); Hemoglobin 9.5 g/dl (14.0-18.0); Lymphocyte % 22.7 % (25-47); Mean Corpuscular HGB Conc 34 g/dl (31-36); Mean Corpuscular Hemoglobin 33 pg (27-31); Mean Corpuscular Volume 98 fL (80-94); Mean Platelet Volume 7.4 um3 (7.4-10.4); Nucleated Red Blood Cells % 0.1; Platelet Count 226 10^3/ul (150-450); Red Blood Count 2.84 10^6/ul (4.0-5.4); Red Cell Distribution Width 18 % (10.5-15); White Blood Count 9.2 10^3/ul (3.5-10.8)
--- NOTE | 2018-03-02 07:18 | EEG ---
ELECTROENCEPHALOGRAPHY REPORT: DATE OF STUDY: 03/01/18 DATE READ: 03/01/18 Inpatient EEG. REFERRING PROVIDER: Ibrahima Del Rio MD CLINICAL PROBLEM: Mr. Сергей Lu is an 87-year-old man with history of left carotid occlusion and right carotid stenosis who developed sudden onset word finding difficulty. This EEG was requested to evaluate for epileptiform abnormalities, focal slowing, or electrographic seizures. CLINICAL STATE: Awake and drowsy. REPORT: The most prominent feature of this recording were multiple findings including: Intermittent diffuse polymorphic slowing lasting for 1-2 seconds with a frequency of 3-6 Hz of delta and theta frequencies, intermittent left frontal 2-3 Hz delta slowing mostly seen at FP1 and F7, rare sharp waves seen in the left temporal region, maximal at A1 and T3. Otherwise, the waking background showed appropriate organization with clearly defined anterior-posterior voltage and frequency gradients. There was well- defined posterior dominant rhythm of 9 Hz which was symmetrical and showed normal reactivity. Anteriorly, there was an expected pattern of lower voltage irregular mixed faster frequencies. Attenuation of the background was seen during drowsy state. Hyperventilation and photic stimulation were not performed. Single electrode EKG, irregular rhythm with normal rate with frequent PAC's. Throughout the recording, there were no electrographic seizures. CLINICAL IMPRESSION: This is an abnormal awake and drowsy EEG due to the presence of: 1. Intermittent diffuse slowing seen maximum in the frontal region. This is suggestive of an underlying mild nonspecific encephalopathy. 2. Intermittent left frontal slowing suggestive of a focal neuronal dysfunction in that region, which can be consistent with MRI findings of small embolic strokes to that region. 3. Rare sharp waves in the left temporal which raise concern for cortical discharges that may increase the epileptogenic potential emanating from that region. There may be a small cortical emboli in the temporal lobe that is causing this abnormality. 4. Given that the patient has not had any generalized seizures, I would hold off from treating with antiseizure medication. Continue to monitor and supportive care. [id number]/[facility] #: [id number] MTDOscar
[2018-03-02] MEDS: Atorvastatin* 80 MG TAB PO SCH (08:28)
[2018-03-02] MEDS: Multivitamins/Minerals TAB PO SCH (08:28)
[2018-03-02] MEDS: PTO Brimonidine P 0.1%(NF) 1 DROP BTL BOTH EYES SCH ×2 (08:28→20:34)
[2018-03-02] MEDS: PTO Brinzolamide 1% OPHTH SOL(NF) BTL RIGHT EYE SCH ×2 (08:29→20:35)
[2018-03-02] MEDS: Aspirin 81 mg CHEW TAB* 81 MG TAB.CHEW PO SCH (08:29)
[2018-03-02] MEDS: Finasteride TAB* 5 MG PO SCH (08:29)
[2018-03-02] MEDS ORDERED: NS 0.9% 1000 ML* 250 ML IV ONE (11:39)
[2018-03-02] MEDS: CMC:Midodrine (NF) 5 MG TAB PO SCH ×2 (15:27→20:34)
--- NOTE | 2018-03-02 18:40 | PN ---
Subjective Date of Service: 03/02/18 Interval History: Patient most concerned about shaking spells he has had for 1 1/2 yrs. He did not try to walk today. Family History: Unchanged from Admission Social History: Unchanged from Admission Objective Active Medications: Acetaminophen (Tylenol Tab*) 650 mg PO Q4H PRN PRN Reason: FEVER/PAIN Aspirin (Aspirin 81 Mg Chew Tab*) 81 mg PO DAILY [facility] Last Admin: 03/02/18 08:29 Dose: 81 mg Atorvastatin Calcium (Lipitor*) 80 mg PO DAILY [facility] Last Admin: 03/02/18 08:28 Dose: 80 mg Brimonidine Tartrate (Alphagan P 0.1% (Nf)) 1 drop BOTH EYES BID [facility] Last Admin: 03/02/18 08:28 Dose: 1 drop Brinzolamide (Azopt 1% Ophth Taisha(Nf)) 1 drop RIGHT EYE BID [facility] Last Admin: 03/02/18 08:29 Dose: 1 drop Cyanocobalamin (Vitamin B12 Inj *) 1,000 mcg IM MONTHLY [facility] Midodrine (Midodrine (Nf)) 5 mg PO TID [facility] PRN Reason: Protocol Last Admin: 03/02/18 15:27 Dose: 5 mg Multivitamins/Minerals (Theragran/Minerals Tab*) 1 tab PO DAILY [facility] Last Admin: 03/02/18 08:28 Dose: 1 tab Ondansetron HCl (Zofran Odt Tab*) 4 mg PO Q6H PRN PRN Reason: NAUSEA/VOMITING Polyethylene Glycol/Electrolytes (Miralax*) 17 gm PO DAILY PRN PRN Reason: CONSTIPATION Last Admin: 02/28/18 11:34 Dose: 17 gm Prasugrel (Effient (Nf)) 10 mg PO DAILY [facility] Tramadol HCl (Ultram*) 50 mg PO Q6H PRN PRN Reason: PAIN Vital Signs - 8 hr 03/02/18 03/02/18 03/02/18 11:13 12:10 12:49 Temperature 98.1 F Pulse Rate 93 59 Respiratory 20 20 Rate Blood Pressure 98/42 129/55 133/62 (mmHg) O2 Sat by Pulse 98 99 Oximetry 03/02/18 15:52 Temperature 99.4 F Pulse Rate 95 Respiratory 16 Rate Blood Pressure 127/61 (mmHg) O2 Sat by Pulse 98 Oximetry Oxygen Devices in Use Now: None Appearance: Alert, partly up in bed. In fair spirits. Looks comfortable Extremities: No Edema, No Clubbing, Cyanosis, - Skin: No Rash or Ulcers, No Nodules or Sclerosis, - Neurological: Alert and Oriented x 3 - RUIZ. No tremor. Speech clear, fluent, and appropriate. , NL Sensation Result Diagrams: 03/02/18 05:36 03/01/18 05:11 Diagnostic Imaging: . Assess/Plan/Problems-Billing Assessment: Mr. Lu is an 87 year old male patient that presents with dizziness and large LLE hematoma, found to have symptomatic anemia and orthostasis. - Patient Problems (1) CVA (cerebral vascular accident) Current Visit: Yes Status: Acute Code(s): I63.9 - CEREBRAL INFARCTION, UNSPECIFIED SNOMED Code(s): 964283597 Comment: - Symptoms have waxed and waned, but he is now ? asymptomatic. - Appreciate neurology consultation. MRI brain showed small subacute infarct in the right precentral gyrus. - Significant carotid disease. CTA head and neck shows at the bifurcation the left internal carotid artery becomes completely occluded and the occlusion extends to the petrous carotid artery. Mixed attenuation atherosclerosis with high-grade right carotid bulb stenosis of 75%. Family do not want surgical intervention. - Continue ASA and Effient. (2) Hematoma of left lower extremity Current Visit: Yes Status: Acute Code(s): S80.12XA - CONTUSION OF LEFT LOWER LEG, INITIAL ENCOUNTER SNOMED Code(s): 821504845 Comment: - CT showed hematoma Continue aspirin and effient due to subacute CVA. Hct up to 28 on 03/02. Status and Disposition: inpatient.
--- NOTE | 2018-03-02 18:59 | PN ---
Progress Note - Progress Note Date of Service: 03/02/18 Note: L thigh larger than R, some ecchymosis on medial L thigh noted.
--- NOTE | 2018-03-03 02:36 | PN ---
NEUROLOGY PROGRESS NOTE: DATE OF SERVICE: 03/02/18 Neurology is following for the evaluation of stroke like symptoms, severe carotid disease, orthostatic hypotension causing lightheadedness. CHIEF COMPLAINT: Intermittent lightheadedness and word-finding difficulty and inability to hold on to objects in the right hand when sitting upright. SUBJECTIVE: To review, Mr. 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 He has received a total of 3 units of packed RBCs. He had an episode 2 days ago where Code Elena was initiated due to dysarthria and word- finding difficulty. An MRI of the brain was obtained and was unremarkable. Yesterday, on 03/01/18, the patient developed recurrence of the stroke symptoms. He was sitting upright. He was having difficulty findings words. He was slurring his words. He was having myoclonic like and tremulous movement from the right upper extremity. Immediately when he was laid flat, the patient' s symptoms resolved. Today, the patient is frustrated as he is having trouble with recurrence of his symptoms when he is sitting upright. He feels lightheaded. He stated that this is a chronic problem for over the past 1-1/2 years, but after this hematoma , it seems like his orthostatic hypotension has worsened. For instance, he was having breakfast this morning. He was asymptomatic. However, after 5-10 minutes into having his meal, the patient started developing slurred speech, lightheadedness, and slight abnormal movements of the right upper extremity. He denied any headaches, visual disturbance, or chest pain. REVIEW OF SYSTEMS: As mentioned above. DIAGNOSTIC STUDIES/LABORATORY VALUES: Hemoglobin increased to 9.5, hematocrit of 28, platelets of 226. Repeat MRI, only the DWI and ADC was obtained, showed evidence of small focus of restricted diffusion within the right precentral gyrus consistent with acute infarct. I discussed this report with Dr. Martines. Additionally, an addendum has been placed as there were questionable smaller punctate lesions within the left temporal periventricular white matter on axial image 16 and within the right parietal cortex on axial image 25. The multiple vascular territories in this case would suggest embolic phenomenon. PHYSICAL EXAMINATION: Vitals: Temperature of 99.4, pulse of 55, respiratory rate of 16, oxygen saturation 98, blood pressure of 156/91. Orthostatic vitals were obtained today by myself. At 1038, patient's blood pressure was 122/54 with a heart rate of 77, and at 1043, the initial blood pressure was when the patient was lying flat. When sitting the patient up at about 50-60 degrees, he began clinically having symptoms of slurred speech and his blood pressure dropped to 99/56 with heart rate of 63. 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 Head: Normocephalic without obvious abnormality. Eye: Conjunctivae and corneas are clear. Neck: Supple, symmetric, with right carotid bruits. Clear to auscultation bilaterally. Irregular rhythm with normal right S1, S2 is normal. I reviewed the telemetry, there is no atrial fibrillation, but premature atrial contractions were seen. Extremities: He has a large left thigh hematoma, mostly involving the lateral and posterior thigh. It has not expanded. No skin lesion or laceration. Neurological Examination: Awake, alert, oriented to person, place and time. When sitting up, the patient has dysarthria that immediately resolves when lying flat. Cranial nerves. Pupils mid range and reactive to light. Normal consensual response. Sensation is intact in forehead, cheeks and jaw region. No facial droop. Tongue is symmetric and midline with no atrophy or fasciculation. Motor: No abnormal movements. When I sat the patient up again, he did have tremors like movement and mild myoclonus on the right upper extremity that immediately resolved when lying flat. 5/5 strength throughout otherwise. No cogwheel rigidity. No masked facies. Reflexes trace in the upper extremity with completely absent reflexes in the lower extremities. Flexor plantar response. Pes cavus and hammertoes were noted. Sensation is intact to light touch throughout except there is a profound distal to proximal sensory gradient above the knees to light touch and pinprick. Normal finger-to- nose bilaterally. I was unable to stand the patient today to even get blood pressure vitals due to severe symptomatic hypotension. Labs, imaging and other diagnostics as discussed in the subject. ASSESSMENT: This is a complicated case. This is an 87-year-old very pleasant man who has a history of bilateral carotid disease, left internal carotid occlusion and right severe internal carotid artery stenosis who presented with left thigh hematoma in the setting of Effient and high dose aspirin use. He received blood transfusion. He is stable in the sense of the hematoma as his hemoglobin has been slowly improving. He did receive 3 units of packed RBCs. I resumed his Effient and a lower dose aspirin yesterday. He is currently on Effient 10 mg and aspirin 81 mg. He seems to be tolerating the regimen. The main problem here is the patient's symptomatic orthostatic hypotension. He had positive orthostatic vitals from flat to sitting up in a bed. I was unable to stand the patient due to significant clinical symptoms of pretty much focal stroke- like symptoms with dysarthria and myoclonus/tremors of the right upper extremity that resolved immediately when he was laid flat and I elevated his legs. I suspect the orthostatic hypotension is multifactorial. I suspect the patient has underlying hereditary neuropathy that is also causing some type of autonomic dysregulation or autonomic neuropathy. He has no evidence of Parkinson's or MSA. In addition, given that he is anemic now, this may exacerbate his orthostatic hypotension. The patient feels that he has worsened and has developed uncontrolled orthostasis since the hospitalization. In addition, the limitation and cerebral blood flow in the setting of carotid disease is probably not helping here. Important to add that a repeat MRI, only obtaining the DWI and ADC sequence, did show a change from 02/28/18 to 03/01/18 is suggesting that the patient did have very small, currently asymptomatic embolic strokes (when laying flat), which I suspect are due to [id number] to emboli from proximal carotid disease. The patient has resumed his antiplatelet therapy since then. 1. Severe orthostatic hypotension. 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 PLAN: We discussed multiple treatment strategies. His anemia needs to be corrected and we may need transfusion with at least 1 more unit of packed RBC to get his hemoglobin above 10 as he is still symptomatic. In addition, I would start the patient on midodrine 5 mg 3 times daily. The side effects of midodrine were discussed with the patient and include hypertension, scalp paresthesias and pilomotor reaction. We are going to avoid nocturnal supine hypertension and we would discontinue midodrine if his supine or sitting blood pressure is greater than 180/100 mmHg. Please apply compressive stocking. Slowly transition the patient from laying flat to sitting up, then eventually sitting in a chair, then eventually ambulate over the next few days. Continue to monitor his hemoglobin. I discussed the above plan and educated and counseled the patient and his son, Boris, who is at bedside. TIME SPENT: I spent a total of 35 minutes and greater than 50% was spent directly reviewing the medical chart, examining the patient and discussing the plan with the primary team as well. We will continue to follow. [id number]/[facility] #: [id number] NONA
[2018-03-03] MEDS: CMC:Midodrine (NF) 5 MG TAB PO SCH ×3 (08:33→20:12)
[2018-03-03] MEDS: Multivitamins/Minerals TAB PO SCH (08:33)
[2018-03-03] MEDS: Aspirin 81 mg CHEW TAB* 81 MG TAB.CHEW PO SCH (08:33)
[2018-03-03] MEDS: Atorvastatin* 80 MG TAB PO SCH (08:33)
[2018-03-03] MEDS: CMC:Prasugrel (NF) 10 MG PO SCH (08:33)
[2018-03-03] MEDS: PTO Brimonidine P 0.1%(NF) 1 DROP BTL BOTH EYES SCH ×2 (08:33→20:12)
[2018-03-03] MEDS: PTO Brinzolamide 1% OPHTH SOL(NF) BTL RIGHT EYE SCH ×2 (08:34→20:12)
--- NOTE | 2018-03-03 10:34 | PN ---
Subjective Date of Service: 03/03/18 Interval History: I saw patient during one of his episodes that have been occurring more and more often for the past 1 1/2 years. As per my instructions he called the nurse and she informed me he was having an episode. He c/o dizziness/lightheadedness, also leg weakness, in that order. He had not tried to get OOB. Family History: Unchanged from Admission Social History: Unchanged from Admission Objective Active Medications: Acetaminophen (Tylenol Tab*) 650 mg PO Q4H PRN PRN Reason: FEVER/PAIN Aspirin (Aspirin 81 Mg Chew Tab*) 81 mg PO DAILY [facility] Last Admin: 03/03/18 08:33 Dose: 81 mg Atorvastatin Calcium (Lipitor*) 80 mg PO DAILY [facility] Last Admin: 03/03/18 08:33 Dose: 80 mg Brimonidine Tartrate (Alphagan P 0.1% (Nf)) 1 drop BOTH EYES BID [facility] Last Admin: 03/03/18 08:33 Dose: 1 drop Brinzolamide (Azopt 1% Ophth Tasiha(Nf)) 1 drop RIGHT EYE BID [facility] Last Admin: 03/03/18 08:34 Dose: 1 drop Cyanocobalamin (Vitamin B12 Inj *) 1,000 mcg IM MONTHLY [facility] Midodrine (Midodrine (Nf)) 5 mg PO TID [facility] PRN Reason: Protocol Last Admin: 03/03/18 08:33 Dose: 5 mg Multivitamins/Minerals (Theragran/Minerals Tab*) 1 tab PO DAILY [facility] Last Admin: 03/03/18 08:33 Dose: 1 tab Ondansetron HCl (Zofran Odt Tab*) 4 mg PO Q6H PRN PRN Reason: NAUSEA/VOMITING Polyethylene Glycol/Electrolytes (Miralax*) 17 gm PO DAILY PRN PRN Reason: CONSTIPATION Last Admin: 02/28/18 11:34 Dose: 17 gm Prasugrel (Effient (Nf)) 10 mg PO DAILY [facility] Last Admin: 03/03/18 08:33 Dose: 10 mg Sertraline HCl (Zoloft*) 25 mg PO DAILY [facility] Tramadol HCl (Ultram*) 50 mg PO Q6H PRN PRN Reason: PAIN Vital Signs - 8 hr 03/03/18 03/03/18 03/03/18 04:04 04:10 07:40 Temperature 97.7 F 98.9 F Pulse Rate 41 81 94 Respiratory 16 20 Rate Blood Pressure 138/68 147/75 (mmHg) O2 Sat by Pulse 97 97 Oximetry 03/03/18 08:00 Temperature Pulse Rate Respiratory 22 Rate Blood Pressure (mmHg) O2 Sat by Pulse Oximetry Oxygen Devices in Use Now: None Appearance: Alert, partly up in bed. Visibly hyperventilating. Eyes: No Scleral Icterus Respiratory: Symmetrical Chest Expansion and Respiratory Effort, Clear to Auscultation, Clear to Percussion, - - Visibly hyperventilating. Cardiovascular: NL Sounds; No Murmurs; No JVD, RRR, No Edema, - Skin: No Nodules or Sclerosis, - - L thigh larger than R, ecchymotic medially. Neurological: Alert and Oriented x 3, NL Sensation Result Diagrams: 03/02/18 05:36 03/01/18 05:11 Diagnostic Imaging: . Assess/Plan/Problems-Billing Assessment: Mr. Lu is an 87 year old male patient that presents with dizziness and large LLE hematoma, found to have symptomatic anemia and orthostasis. - Patient Problems (1) CVA (cerebral vascular accident) Current Visit: Yes Status: Acute Code(s): I63.9 - CEREBRAL INFARCTION, UNSPECIFIED SNOMED Code(s): 737519507 Comment: - Symptoms have waxed and waned. His present sx's are due to panic attacks (03/03 ), - Appreciate neurology consultation. MRI brain showed small subacute infarct in the right precentral gyrus. - Significant carotid disease. CTA head and neck shows at the bifurcation the left internal carotid artery becomes completely occluded and the occlusion extends to the petrous carotid artery. Mixed attenuation atherosclerosis with high-grade right carotid bulb stenosis of 75%. Family do not want surgical intervention. - Continue ASA, midodrine, prasugre. (2) Hematoma of left lower extremity Current Visit: Yes Status: Acute Code(s): S80.12XA - CONTUSION OF LEFT LOWER LEG, INITIAL ENCOUNTER SNOMED Code(s): 145037330 Comment: - CT showed hematoma Continue aspirin and effient due to subacute CVA. Hct up to 28 on 03/02. (3) Panic attacks Current Visit: Yes Status: Acute Code(s): F41.0 - PANIC DISORDER [EPISODIC PAROXYSMAL ANXIETY] SNOMED Code(s): 703482054 Comment: Pt agrees to trying sertraline. Start 25 mg daily 03/03. Status and Disposition: inpatient.
[2018-03-03] MEDS: Sertraline* 25 MG TAB PO SCH (11:27)
--- NOTE | 2018-03-03 20:09 | PN ---
CC: Dr. Caldwell NEUROLOGY FOLLOWUP: DATE OF FOLLOWUP: 03/03/18 LOCATION: He is in room 433. HOSPITALIST: Dr. Tee. CHIEF COMPLAINT: Carotid stenosis. INTERVAL HISTORY: Since yesterday, Mr. uL continues to have multiple episodes of generalized shaking and feeling that it is hard to function mentally. They are all precipitated by sitting up or sometimes just sitting up with his legs out. He has not been able to stand or walk today. He was started on midodrine yesterday by Dr. Del Rio. His blood pressure really has not seemed to change compared to historical measures. There are no orthostatics in the chart from the last 24 hours. When he has episodes, he never loses consciousness or has change in vision. He feels he is shaking on both sides. When lies down he feels better. He has been able to ambulate with a walker back at [facility] before this most recent thigh hematoma and bleeding. I went over the prior history with him and his son, Wild, as well as his daughter- in-law. Apparently, discussions were made about surgical intervention for his severe carotid disease including stenting or other operations. It was recommended a year ago at the [facility] that surgery not be pursued. He has been maintained on antiplatelet therapy up to this point in time. MEDICATIONS: Reviewed. He is on: 1. Midodrine 5 mg p.o. t.i.d. 2. Zofran 4 mg p.o. q.6 hours p.r.n. nausea. 3. Effient 10 mg p.o. q. day. 4. Sertraline 25 mg p.o. q. day. 5. Tramadol 50 mg p.o. q.6 hours p.r.n. pain. 6. Aspirin 81 mg p.o. q. day. 7. Atorvastatin 80 mg p.o. q. day. 8. Multiple drops for glaucoma. 9. Monthly B12 injections. PHYSICAL EXAMINATION: He is a little bit pale, but well hydrated. Temperature 98.7; blood pressure most recently 100/44, 147/75 early this morning. Heart rate fluctuates from the 50s to the 90s. Respiratory rate is 24 and oxygen saturation is 98% on room air. Heart is in a regular rate and rhythm without murmurs heard. Carotid pulses are felt and I do not hear any bruits on either side. Neurological Exam: Pupils react equally from about 3.5 to 2.5 mm. 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 I do not see any embolic phenomenon. Eye movements are normal. Visual cintron are full to confrontation. Facial musculature is symmetric to light touch. Facial musculature is symmetric as well. Palate and tongue appear normal, palate rises symmetrically and tongue protrudes in the midline. There is no dysarthria. He is a bit hard of hearing. Motor exam reveals normal strength in the upper extremities and the right lower extremity. He has hammertoes and high arches bilaterally and ankle dorsiflexor weakness bilaterally. I did not aggressively test proximal strength in the left leg because of the hematoma. He is alert and oriented, but a little bit forgetful at times. Generally speaking, he has a good memory. He has some word-finding problems at times. Language is otherwise generally fluent. DIAGNOSTIC STUDIES/LAB DATA: Laboratory data includes the MRI of the brain, which I reviewed is limited to diffusion and ADC maps. There is a very small right cortical infarct, which is quite tiny. Carotid ultrasounds were reviewed as well from 02/28/18, notable for an occluded left carotid and a 70% to 99% right carotid stenosis. EEG from 03/01/18 notable for intermittent diffuse slowing mainly in the frontal regions. There was intermittent left frontal slowing as well. Other laboratory data notable for hemoglobin yesterday of 9.5 with a hematocrit of 28%. Platelet count 226,000. Chemistries from 03/01/18 notable for a sodium of 138 and otherwise unremarkable. IMPRESSION AND PLAN: Impression is that of apparent symptomatic severe carotid disease. He has not clearly been demonstrated to be orthostatic. His hemoglobin was stable as of yesterday. We had a very long talk and question and answer session going back and forth for at least 40 to 45 minutes. We addressed the possibility of reexamining surgical interventions and talked about different types of carotid surgical procedures. We talked about the risk of stenting versus endarterectomies in regards to the stroke risk or cardiovascular risk. We talked about blood pressure regulation and the importance of hydration. We talked about the side effect profile of midodrine as well as of sertraline. Specifically, the risk of supine hypertension and the side effects of sertraline. We talked about the interaction of anxiety and other symptoms in terms of his shakiness and feeling unwell. We will try to get some orthostatic vitals to see if we can document a drop in blood pressure. We will continue midodrine for now and monitor for supine hypertension. I spoke with Dr. Tee and he will check his hemoglobin tomorrow. The family asked about going back to [facility] at a higher level of care. If he is not actually dropping his blood pressure when he sits or stands , I think it is certainly worth looking at. We will continue to follow with you. TIME SPENT: Over 50% of this 45-minute visit was spent in [id number] counseling and education. [id number]/[facility] #: [id number] NONA
[2018-03-04] MEDS: Multivitamins/Minerals TAB PO SCH (08:33)
[2018-03-04] MEDS: Sertraline* 25 MG TAB PO SCH (08:33)
[2018-03-04] MEDS: Atorvastatin* 80 MG TAB PO SCH (08:33)
[2018-03-04] MEDS: Aspirin 81 mg CHEW TAB* 81 MG TAB.CHEW PO SCH (08:34)
[2018-03-04] MEDS: CMC:Midodrine (NF) 5 MG TAB PO SCH ×3 (08:34→19:27)
[2018-03-04] MEDS: CMC:Prasugrel (NF) 10 MG PO SCH (08:34)
[2018-03-04] MEDS: PTO Brinzolamide 1% OPHTH SOL(NF) BTL RIGHT EYE SCH ×2 (08:34→19:27)
[2018-03-04] MEDS: PTO Brimonidine P 0.1%(NF) 1 DROP BTL BOTH EYES SCH ×2 (08:35→19:27)
--- NOTE | 2018-03-04 10:24 | PN ---
Subjective Date of Service: 03/04/18 Interval History: Still has "episodes." He did get up in a chair yesterday with PT. Family History: Unchanged from Admission Social History: Unchanged from Admission Objective Active Medications: Acetaminophen (Tylenol Tab*) 650 mg PO Q4H PRN PRN Reason: FEVER/PAIN Aspirin (Aspirin 81 Mg Chew Tab*) 81 mg PO DAILY [facility] Last Admin: 03/04/18 08:34 Dose: 81 mg Atorvastatin Calcium (Lipitor*) 80 mg PO DAILY [facility] Last Admin: 03/04/18 08:33 Dose: 80 mg Brimonidine Tartrate (Alphagan P 0.1% (Nf)) 1 drop BOTH EYES BID [facility] Last Admin: 03/04/18 08:35 Dose: 1 drop Brinzolamide (Azopt 1% Ophth Taisha(Nf)) 1 drop RIGHT EYE BID [facility] Last Admin: 03/04/18 08:34 Dose: 1 drop Cyanocobalamin (Vitamin B12 Inj *) 1,000 mcg IM MONTHLY [facility] Midodrine (Midodrine (Nf)) 5 mg PO TID [facility] PRN Reason: Protocol Last Admin: 03/04/18 08:34 Dose: 5 mg Multivitamins/Minerals (Theragran/Minerals Tab*) 1 tab PO DAILY [facility] Last Admin: 03/04/18 08:33 Dose: 1 tab Ondansetron HCl (Zofran Odt Tab*) 4 mg PO Q6H PRN PRN Reason: NAUSEA/VOMITING Polyethylene Glycol/Electrolytes (Miralax*) 17 gm PO DAILY PRN PRN Reason: CONSTIPATION Last Admin: 02/28/18 11:34 Dose: 17 gm Prasugrel (Effient (Nf)) 10 mg PO DAILY [facility] Last Admin: 03/04/18 08:34 Dose: 10 mg Sertraline HCl (Zoloft*) 50 mg PO DAILY [facility] Tramadol HCl (Ultram*) 50 mg PO Q6H PRN PRN Reason: PAIN Vital Signs - 8 hr 03/04/18 03/04/18 07:35 08:00 Temperature 98.5 F Pulse Rate 52 Respiratory 24 16 Rate Blood Pressure 142/76 (mmHg) O2 Sat by Pulse 98 Oximetry Oxygen Devices in Use Now: None Appearance: Alert, partly up in bed. Appears anxious but otherwise comfortable. Eyes: No Scleral Icterus Extremities: No Edema, No Clubbing, Cyanosis Skin: No Nodules or Sclerosis, - - Ecchymosis L thigh posteriorly and medially. Not tense, minimal tenderness. Neurological: Alert and Oriented x 3, NL Sensation, - - At times hesitates with answers, later says his speech and thoughts are disconnected. Result Diagrams: 03/02/18 05:36 03/01/18 05:11 Diagnostic Imaging: . Assess/Plan/Problems-Billing Assessment: Mr. Lu is an 87 year old male patient that presents with dizziness and large LLE hematoma, found to have symptomatic anemia and orthostasis. - Patient Problems (1) CVA (cerebral vascular accident) Current Visit: Yes Status: Acute Code(s): I63.9 - CEREBRAL INFARCTION, UNSPECIFIED SNOMED Code(s): 967966666 Comment: - Symptoms have waxed and waned. His present sx's are due to panic attacks (03/03 ), - Appreciate neurology consultation. MRI brain showed small subacute infarct in the right precentral gyrus. - Significant carotid disease. CTA head and neck shows at the bifurcation the left internal carotid artery becomes completely occluded and the occlusion extends to the petrous carotid artery. Mixed attenuation atherosclerosis with high-grade right carotid bulb stenosis of 75%. Family do not want surgical intervention. - Continue ASA, midodrine, prasugrel. Not orthostatic 03/03. (2) Hematoma of left lower extremity Current Visit: Yes Status: Acute Code(s): S80.12XA - CONTUSION OF LEFT LOWER LEG, INITIAL ENCOUNTER SNOMED Code(s): 480842409 Comment: - CT showed hematoma Continue aspirin and effient due to subacute CVA. Hct up to 28 on 03/02. CBC 03/04. (3) Panic attacks Current Visit: Yes Status: Acute Code(s): F41.0 - PANIC DISORDER [EPISODIC PAROXYSMAL ANXIETY] SNOMED Code(s): 508804670 Comment: Pt agrees to trying sertraline. Started 25 mg daily 03/03, increase to 50 mg 03/05. Status and Disposition: inpatient.
--- NOTE | 2018-03-04 11:08 | PN ---
Subjective Date of Service: 03/04/18 Interval History: He continues to have intermittent bouts of dizziness, shaking, lightheadedness, which tend to happen at times of position changes or when he gets very anxious. Dr. Tee spoke at length about his anxiety and how that might be contributing and explained why he thought Zoloft might help. I spent 45 minutes with the patient and his family discussing the various aspects of his health condition and future plans. At this point, he is completely aware of the likely cause of his symptoms, the need for blood pressure augmentation and anti-anxiety medication. No falls overnight. No loss of consciousness. He notes getting more fatigued after exertion and double vision when reading at night. Some difficulty swallowing at times. Lyin/70 53 Sittin/88 88 Standin/96 108 Family History: Unchanged from Admission Social History: Unchanged from Admission Objective Active Medications: Acetaminophen (Tylenol Tab*) 650 mg PO Q4H PRN PRN Reason: FEVER/PAIN Aspirin (Aspirin 81 Mg Chew Tab*) 81 mg PO DAILY [facility] Last Admin: 03/04/18 08:34 Dose: 81 mg Atorvastatin Calcium (Lipitor*) 80 mg PO DAILY [facility] Last Admin: 03/04/18 08:33 Dose: 80 mg Brimonidine Tartrate (Alphagan P 0.1% (Nf)) 1 drop BOTH EYES BID [facility] Last Admin: 03/04/18 08:35 Dose: 1 drop Brinzolamide (Azopt 1% Ophth Taisha(Nf)) 1 drop RIGHT EYE BID [facility] Last Admin: 03/04/18 08:34 Dose: 1 drop Cyanocobalamin (Vitamin B12 Inj *) 1,000 mcg IM MONTHLY [facility] Midodrine (Midodrine (Nf)) 5 mg PO TID [facility] PRN Reason: Protocol Last Admin: 03/04/18 08:34 Dose: 5 mg Multivitamins/Minerals (Theragran/Minerals Tab*) 1 tab PO DAILY [facility] Last Admin: 03/04/18 08:33 Dose: 1 tab Ondansetron HCl (Zofran Odt Tab*) 4 mg PO Q6H PRN PRN Reason: NAUSEA/VOMITING Polyethylene Glycol/Electrolytes (Miralax*) 17 gm PO DAILY PRN PRN Reason: CONSTIPATION Last Admin: 02/28/18 11:34 Dose: 17 gm Prasugrel (Effient (Nf)) 10 mg PO DAILY [facility] Last Admin: 03/04/18 08:34 Dose: 10 mg Sertraline HCl (Zoloft*) 50 mg PO DAILY [facility] Tramadol HCl (Ultram*) 50 mg PO Q6H PRN PRN Reason: PAIN Vital Signs 03/03/18 03/03/18 03/03/18 11:37 15:25 17:06 Temperature 98.7 F 98.7 F Pulse Rate 58 97 53 Respiratory 24 20 Rate Blood Pressure 100/44 125/58 151/70 (mmHg) O2 Sat by Pulse 98 99 98 Oximetry 03/03/18 03/03/18 03/03/18 17:20 20:00 23:37 Temperature Pulse Rate 108 80 Respiratory 18 18 Rate Blood Pressure 136/96 148/86 (mmHg) O2 Sat by Pulse 97 Oximetry 03/04/18 03/04/18 03/04/18 01:46 07:35 08:00 Temperature 99.4 F 98.5 F Pulse Rate 52 Respiratory 24 16 Rate Blood Pressure 142/76 (mmHg) O2 Sat by Pulse 98 Oximetry Oxygen Devices in Use Now: None Neurology Exam: General: HEENT: Normocephalic/atraumatic, sclera anicteric, mucous membranes dry Neck: Supple Chest: Clear to auscultation bilaterally Cardiovascular: Ectopic beats noted. No murmurs or rubs. No carotid bruits Abdomen: Soft, nontender/nondistended Extremities: No clubbing, cyanosis, or edema. Skin is warm and pale. Neurological Findings: Awake, Alert, Oriented x3. Speech: fluent without dysarthria, repetition intact, recall intact. He does have episodes with some speech delay, 10-15 seconds but then resumes speech. He is completely alert and aware throughout. Cranial Nerve: PEERL 3-->2, EOM intact, VFF no diplopia curreently, no nystagmus , face symmetric bilaterally, facial sensation intact, hearing intact to finger rub bilaterally, palate elevates symmetrically, tongue midline, no fasiculation Motor: 5/5 throughout (left leg not tested proximally), with some fatiguing of the Right Deltoid after 5 reps. Tone is normal with some generalized atrophy Sensation: Loss of LT/PP in the feet bilaterally Finger to nose, rapid alternating movements intact with intention tremor bilaterally Result Diagrams: 03/02/18 05:36 03/01/18 05:11 Diagnostic Imaging: . 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 Admitted with thigh hematoma and anemia, s/p transfusions 1. I agree with the Zoloft. Dr. Tee and I both had a discuss today with the patient and family about how anxiety might be playing a role in the cycle that develops around his episodes of hypotension. 2. Orthostatics: His blood pressure did drop and pulse increased significantly , positive in nature. Could consider formal TILT as o/p but I do not think it would add much. Agree with Midodrine as long as supine BPs ok. Would keep head at 15 degrees when supine. Will recheck orthostatics today. 3. Carotied Stenosis: continue Effiant/ASA. Non-surgical at this point although we may revisit this as an outpatient. No intervention at this time 4. Thigh hematoma/anemia: status post transfusion, monitor H/H, transfuse as necessary, would strive for Heme around 10 5. Fatiguing on exam, diplopia at night, some dysphagia at times. Check MG antibodies. Consider o/p EMG. Suspicion low for now. I have a follow up scheduled in March. He is to return to [facility] next week at higher level of care. Spent 45 minutes with the patient and family today counseling on his condition and further plans. All questions answered.
--- NOTE | 2018-03-04 11:52 | PN ---
Progress Note - Progress Note Date of Service: 03/04/18 Note: Time spent on discharge 50 minutes.
[2018-03-04 12:04] LABS: ABS Basophils 0.1 10^3/ul (0-0.2); ABS Eosinophils 0.1 10^3/ul (0-0.6); ABS Lymphocytes 1.3 10^3/ul (1.0-4.8); ABS Monocytes 0.8 10^3/ul (0-0.8); ABS Nucleated RBC 0 10^3/ul; Eosinophil % 1.1 % (0-6); Hematocrit 28 % (42-52); Hemoglobin 9.4 g/dl (14.0-18.0); Lymphocyte % 17.8 % (25-47); Mean Corpuscular HGB Conc 34 g/dl (31-36); Mean Corpuscular Hemoglobin 33 pg (27-31); Mean Corpuscular Volume 98 fL (80-94); Mean Platelet Volume 7.3 um3 (7.4-10.4); Nucleated Red Blood Cells % 0; Platelet Count 238 10^3/ul (150-450); Red Blood Count 2.82 10^6/ul (4.0-5.4); Red Cell Distribution Width 18 % (10.5-15); White Blood Count 7.2 10^3/ul (3.5-10.8)
--- NOTE | 2018-03-04 13:01 | TRS ---
CC: Dr. Caldwell; Dr. De Leon * TRANSFER SUMMARY: DATE OF ADMISSION: 02/25/18 DATE OF TRANSFER: 03/05/18 HISTORY OF PRESENT ILLNESS/HOSPITAL COURSE: This 87-year-old man came with chief complaint of dizziness, lightheadedness, weakness and dyspnea on exertion. History is detailed in admission note. He was found to have acute blood loss anemia most likely had a quad tear on his left thigh. Already he was on a dual antiplatelet therapy at home for his carotid disease. He had a total of 3 units of packed cells, given 2 on 02/26/18 and 1 on 02/27/18. His blood count improved. His hematocrit was 26 on admission, it fell to 24. It was 28 on 03/02/18. This is being repeated on 03/04/18. Clinically his thigh became less swollen and tense and he had a slowly expanding ecchymosis. He was seen in consultation by the neurologist. He had an MRI of the brain on 03/01/18, which showed a small focus of restricted diffusion in the right precentral gyrus consistent with subacute infarct. He had many spells which he says he has had with increase in frequency for year and a half. I had him call the nurse when he had a spell. I ran up to see him during the spell. He was visibly hypoventilating. He is rather an anxious man. I started him on sertraline. He got 2 doses of 25 mg on 03/03/18 and 04/16. He will start on 03/05/18 with 50 mg daily. Some antibody tests are being sent off to evaluate him for myasthenia gravis, which is a possible explanation for his weakness. He may have some double vision as well. FINAL DIAGNOSES: 1. Cerebrovascular accident. 2. Carotid artery stenosis. 3. Hematoma of left thigh likely due to quadriceps tear. 4. Panic attacks. MEDICATIONS ON TRANSFER: 1. Acetaminophen 650 mg every 4 hours p.r.n. 2. Midodrine 5 mg t.i.d. 3. Ondansetron ODT 4 mg every 6 hours p.r.n. 4. Polyethylene glycol 17 g daily. 5. Sertraline 50 mg daily. 6. Tramadol 50 mg every 6 hours p.r.n. 7. Finasteride 5 mg daily. 8. Multivitamin 1 daily. 9. Eye vitamin 2 daily. 10. Vitamin B12 1000 mcg IM monthly. 11. Brinzolamide 1 drop right eye b.i.d. 12. Brimonidine 0.1% one drop both eyes b.i.d. 13. Prasugrel 10 mg daily. 14. Atorvastatin 80 mg daily. 15. Vitamin D3 2000 units daily. 16. Aspirin 325 mg daily. [id number]/[facility] #: [id number] [facility]
[2018-03-05] MEDS: Acetaminophen TAB* 325 MG PO PRN (08:29)
[2018-03-05] MEDS: PTO Brimonidine P 0.1%(NF) 1 DROP BTL BOTH EYES SCH ×2 (08:30→21:18)
[2018-03-05] MEDS: Atorvastatin* 80 MG TAB PO SCH (08:30)
[2018-03-05] MEDS: Aspirin 81 mg CHEW TAB* 81 MG TAB.CHEW PO SCH (08:30)
[2018-03-05] MEDS: Sertraline* 50 MG TAB PO SCH (08:31)
[2018-03-05] MEDS: CMC:Midodrine (NF) 5 MG TAB PO SCH ×3 (08:31→21:16)
[2018-03-05] MEDS: CMC:Prasugrel (NF) 10 MG PO SCH (08:31)
[2018-03-05] MEDS: PTO Brinzolamide 1% OPHTH SOL(NF) BTL RIGHT EYE SCH ×2 (08:31→21:16)
[2018-03-05] MEDS: Multivitamins/Minerals TAB PO SCH (08:31)
[2018-03-05] MEDS ORDERED: Cyanocobalamin INJ * 1,000 MCG/ML VIAL 1 ML VIAL IM SCH (09:00)
[2018-03-05] MEDS ORDERED: NS 0.9% 1000 ML* 1,000 ML IV ONE (10:35)
--- NOTE | 2018-03-05 13:15 | PN ---
Subjective Date of Service: 03/05/18 Interval History: No overnight events. Feels fine today, has no complaints. Discharge was cancelled this morning when he had a fever to 101. He denies diarrhea, abdominal pain, nausea, cough, dysuria, sore throat. Family History: Unchanged from Admission Social History: Unchanged from Admission Objective Active Medications: Acetaminophen (Tylenol Tab*) 650 mg PO Q4H PRN PRN Reason: FEVER/PAIN Last Admin: 03/05/18 08:29 Dose: 650 mg Aspirin (Aspirin 81 Mg Chew Tab*) 81 mg PO DAILY [facility] Last Admin: 03/05/18 08:30 Dose: 81 mg Atorvastatin Calcium (Lipitor*) 80 mg PO DAILY [facility] Last Admin: 03/05/18 08:30 Dose: 80 mg Brimonidine Tartrate (Alphagan P 0.1% (Nf)) 1 drop BOTH EYES BID [facility] Last Admin: 03/05/18 08:30 Dose: 1 drop Brinzolamide (Azopt 1% Ophth Taisha(Nf)) 1 drop RIGHT EYE BID [facility] Last Admin: 03/05/18 08:31 Dose: 1 drop Cyanocobalamin (Vitamin B12 Inj *) 1,000 mcg IM MONTHLY [facility] Midodrine (Midodrine (Nf)) 5 mg PO TID [facility] PRN Reason: Protocol Last Admin: 03/05/18 08:31 Dose: 5 mg Multivitamins/Minerals (Theragran/Minerals Tab*) 1 tab PO DAILY [facility] Last Admin: 03/05/18 08:31 Dose: 1 tab Ondansetron HCl (Zofran Odt Tab*) 4 mg PO Q6H PRN PRN Reason: NAUSEA/VOMITING Polyethylene Glycol/Electrolytes (Miralax*) 17 gm PO DAILY PRN PRN Reason: CONSTIPATION Last Admin: 02/28/18 11:34 Dose: 17 gm Prasugrel (Effient (Nf)) 10 mg PO DAILY [facility] Last Admin: 03/05/18 08:31 Dose: 10 mg Sertraline HCl (Zoloft*) 50 mg PO DAILY [facility] Last Admin: 03/05/18 08:31 Dose: 50 mg Vital Signs - 8 hr 03/05/1818 03/05/18 07:31 08:00 09:45 Temperature 101.1 F 98.1 F Pulse Rate 65 92 Respiratory 18 18 16 Rate Blood Pressure 155/57 100/52 (mmHg) O2 Sat by Pulse 98 99 Oximetry 03/05/18 03/05/18 10:14 12:09 Temperature 97.2 F 97.9 F Pulse Rate 55 84 Respiratory 18 Rate Blood Pressure 101/37 112/49 (mmHg) O2 Sat by Pulse 98 99 Oximetry Oxygen Devices in Use Now: None Appearance: alert, well appearing and in no distress Eyes: No Scleral Icterus Ears/Nose/Mouth/Throat: NL Teeth, Lips, Gums Neck: NL Appearance and Movements; NL JVP, - - no nuchal rigidity Respiratory: Symmetrical Chest Expansion and Respiratory Effort, Clear to Auscultation Cardiovascular: NL Sounds; No Murmurs; No JVD, RRR Abdominal: NL Sounds; No Tenderness; No Distention, No Hepatosplenomegaly Lymphatic: No Cervical Adenopathy Extremities: No Edema Skin: No Rash or Ulcers Neurological: Alert and Oriented x 3, - - good short term memory, able to name objects accurately and repeat phrases Result Diagrams: 03/04/18 11:35 03/01/18 05:11 Diagnostic Imaging: . Assess/Plan/Problems-Billing Assessment: 87 year old man with history of TIAs, severe carotid disease, and orthostatic hypotension who was admitted with dizziness, found to have anemia from a thigh hematoma, now with fever. - Patient Problems (1) Fever Current Visit: Yes Status: Acute Code(s): R50.9 - FEVER, UNSPECIFIED SNOMED Code(s): 661793745 Comment: Isolated this morning with no localizing symptoms follow up ua, blood cultures may be drug side effect if no infectious source ID'ed no other SIRS criteria (2) Anemia due to acute blood loss Current Visit: Yes Status: Acute Code(s): D62 - ACUTE POSTHEMORRHAGIC ANEMIA SNOMED Code(s): 414616700 Comment: Stable. He has received 3 U PRBCs this admission. (3) History of carotid artery stenosis Current Visit: Yes Status: Acute Code(s): Z86.79 - PERSONAL HISTORY OF OTHER DISEASES OF THE CIRCULATORY SYSTEM SNOMED Code(s): 546295957 Comment: continue asa, effient he and family declined surgery (4) Orthostasis Current Visit: Yes Status: Deleted Code(s): I95.1 - ORTHOSTATIC HYPOTENSION SNOMED Code(s): 354759708 Comment: no orthostasis here but documented as outpatient on tilt table test midodrine okay (5) History of TIA (transient ischemic attack) Current Visit: No Status: Deleted Comment: noted. no history of CVA and admission CT negative. Status and Disposition: inpatient. DC back to [facility] tomorrow pending fevers resolving and no infection found
[2018-03-05 21:39] LABS: Urine Appearance Clear; Urine Blood Negative (Negative); Urine Color Amber; Urine Ketones Negative (Negative); Urine Protein Negative (Negative); Urine Specific Gravity 1.021 (1.010-1.030); Urine Urobilinogen Positive (Negative)
[2018-03-06] MEDS: CMC:Midodrine (NF) 5 MG TAB PO SCH ×3 (07:47→21:35)
[2018-03-06] MEDS: Atorvastatin* 80 MG TAB PO SCH (07:47)
[2018-03-06] MEDS: Aspirin 81 mg CHEW TAB* 81 MG TAB.CHEW PO SCH (07:47)
[2018-03-06] MEDS: Sertraline* 50 MG TAB PO SCH (07:47)
[2018-03-06] MEDS: CMC:Prasugrel (NF) 10 MG PO SCH (07:47)
[2018-03-06] MEDS: Multivitamins/Minerals TAB PO SCH (07:47)
[2018-03-06] MEDS: PTO Brinzolamide 1% OPHTH SOL(NF) BTL RIGHT EYE SCH ×2 (07:48→21:35)
[2018-03-06] MEDS: PTO Brimonidine P 0.1%(NF) 1 DROP BTL BOTH EYES SCH ×2 (07:48→21:37)
[2018-03-06 08:23] LABS: ABS Basophils 0.1 10^3/ul (0-0.2); ABS Eosinophils 0 10^3/ul (0-0.6); ABS Lymphocytes 1.1 10^3/ul (1.0-4.8); ABS Monocytes 0.6 10^3/ul (0-0.8); ABS Neutrophils 4.2 10^3/ul (1.5-7.7); ABS Nucleated RBC 0 10^3/ul; Eosinophil % 0.6 % (0-6); Hematocrit 31 % (42-52); Hemoglobin 10.7 g/dl (14.0-18.0); Mean Corpuscular HGB Conc 34 g/dl (31-36); Mean Corpuscular Hemoglobin 34 pg (27-31); Mean Corpuscular Volume 98 fL (80-94); Mean Platelet Volume 6.9 um3 (7.4-10.4); Nucleated Red Blood Cells % 0.1; Platelet Count 224 10^3/ul (150-450); Red Blood Count 3.17 10^6/ul (4.0-5.4); Red Cell Distribution Width 19 % (10.5-15)
[2018-03-06 08:50] LABS: EGFR Non-African American 122.1 (>60)
--- NOTE | 2018-03-06 09:01 | ED ---
Mariaa Sagastume Julia, scribed for Armando Larkin MD on 02/25/18 at 1828 . Dizziness - HPI Summary HPI Summary: This patient is a 87 year old M presenting to [facility] with a chief complaint of intermittent bilateral hand tremors, loss of motor function, aphasia, and slower speech that has been gradually worsening over the past few days. Pt reports episodic lightheadedness when sitting to standing, lower extremity heaviness, anterior thigh pain and swelling at baseline that has also been gradually worsening. Patient denies CP, SOB, and headache. PMHx includes partial occlusion of the carotid arteries. Medications include Lipitor and blood thinners. - History Of Current Complaint Chief Complaint: EDDizziness Stated Complaint: HEADACHE,DIZZINESS Time Seen by Provider: 02/25/18 18:21 Hx Obtained From: Patient Onset/Duration: Gradually Timing: Intermittent Episode Lasting Character: Lightheaded Aggravating Factor(s): Supine To Erect Associated Signs And Symptoms: Positive: Slurred Speech, Other: - tremors, loss of motor control. Negative: Chest Pain, SOB Related History: Similar Episode/Dx as - carotid artery occlusion - Allergies/Home Medications Allergies/Adverse Reactions: Allergies Allergy/AdvReac Type Severity Reaction Status Date / Time No Known Allergies Allergy Verified 12/19/17 08:58 PMH/Surg Hx/FS Hx/Imm Hx Endocrine/Hematology History: Denies: Hx Anticoagulant Therapy, Hx Blood Disorders, Hx Diabetes Cardiovascular History: Reports: Hx Hypertension, Other Cardiovascular Problems/ Disorders - carotid artery stenosis B/L Denies: Hx Hypercholesterolemia, Hx Pacemaker/ICD Respiratory History: Denies: Hx Asthma, Hx Chronic Obstructive Pulmonary Disease (COPD), Hx Pneumonia, Hx Pulmonary Embolism History: Denies: Hx Renal Disease Musculoskeletal History: Reports: Hx Arthritis Sensory History: Reports: Hx Contacts or Glasses, Hx Hearing Aid Opthamlomology History: Reports: Hx Contacts or Glasses Neurological History: Reports: Hx Transient Ischemic Attacks (TIA) - Multiple last week and one yesterday, Other Neuro Impairments/Disorders - PAIN CLINIC PT Psychiatric History: Denies: Hx Panic Disorder - Surgical History Surgery Procedure, Year, and Place: KNEE SURGERY LEFT. CATARACTS BILATERAL EYES. DETATCHED RETINA RIGHT SIDE-DX'S DONE CLEARED BY DR CONTEH. TONSILS A CHILD - Immunization History Date of Tetanus Vaccine: unk Date of Influenza Vaccine: unk Infectious Disease History: No Infectious Disease History: Denies: Traveled Outside the [place] in Last 30 Days - Family History Known Family History: Positive: Blood Disorder - father , Other - [place] - Social History Alcohol Use: Occasionally Alcohol Amount: 3 drinks per week Hx Substance Use: No Substance Use Type: Reports: None Hx Tobacco Use: No Smoking Status (MU): Never Smoked Tobacco Review of Systems Negative: Fever, Chills Negative: Erythema Negative: Sore Throat Negative: Chest Pain Negative: Shortness Of Breath, Cough Negative: Abdominal Pain, Vomiting, Nausea Negative: dysuria, hematuria Positive: Myalgia - anterior thigh pain Neurological: Other - aphasia, lightheadedness, loss of motor function, slower speech Negative: Headache All Other Systems Reviewed And Are Negative: Yes Physical Exam - Summary Physical Exam Summary: Constitutional: Well-developed, Well-nourished, Alert. (-) Distressed Skin: Warm, Dry HENT: Normocephalic; Atraumatic Eyes: Conjunctiva normal Neck: Musculoskeletal ROM normal neck. (-) JVD, (-) Stridor, (-) Tracheal deviation Cardio: Rhythm regular, rate normal, Heart sounds normal; Intact distal pulses; The pedal pulses are 2+ and symmetric. Radial pulses are 2+ and symmetric. (-) Murmur Pulmonary/Chest wall: Effort normal. (-) Respiratory distress, (-) Wheezes, (-) Rales Abd: Soft. (-) Tenderness, (-) Distension, (-) Guarding, (-) Rebound Musculoskeletal: (-) Edema,There is a 10cm by 20cm ecchymosis over the left medial thigh. Lymph: (-) Cervical adenopathy Neuro: Alert, Oriented x3, Strength normal, Cranial nerves II-XII are grossly intact. (-) Dysmetria, (-) Nystagmus, (-) Ataxia by finger to nose testing, (-) Sensory deficit. Psych: Mood and affect Normal Rectal: no gen blood. Triage Information Reviewed: Yes Vital Signs On Initial Exam: Initial Vitals Resp 12 02/25/18 18:04 Vital Signs Reviewed: Yes Diagnostics - Vital Signs Vital Signs Temp Pulse Resp BP Pulse Ox 02/25/18 18:06 91 16 181/102 100 02/25/18 18:05 98.3 F 102 19 181/102 100 02/25/18 18:04 12 - Laboratory Result Diagrams: 02/25/18 18:30 02/25/18 18:30 Lab Statement: Any lab studies that have been ordered have been reviewed, and results considered in the medical decision making process. - Radiology CXR Radiology Interpretation Completed By: Radiologist - Stigmata of obstructive lung disease with potential pulmonary arterial hypertension. No acute pulmonary or cardiac process evident. ED Physician has reviewed this report. - CT Brain CT CT Interpretation Completed By: Radiologist - 1. Mild involutional change and stigmata of chronic small vessel ischemic disease. 2. No acute intracranial process evident. ED Physician has reviewed this report. - EKG 1833 Cardiac Rate: NL EKG Rhythm: Sinus Rhythm - at 88 BPM Ectopy: PACs EKG Interpretation: no STEMI - Additional Comments Diagnostic Additional Comments: A Venous Doppler study reveals, as per radiologist, No evidence for LEFT lower extremity deep venous thrombosis. ED Physician has reviewed this report. Re-Evaluation - Re-Evaluation 1 Re-Evaluation Time: 10:33 Change: Improved - Pt is able to ambulate well. Pt reports left leg pain only with large steps. Pt denies melena. Dizzy Course/Dx - Course Course Of Treatment: 87 year old M presenting with a chief complaint of intermittent bilateral hand tremors, loss of motor function, aphasia, and slower speech that has been gradually worsening over the past few days. Pt reports episodic lightheadedness when sitting to standing.Neuro exam is unremarkable. Brain CT reveals no acute changes. Stool coag is negative. Low H& H may be due to hematoma. He may require blood transfusion requiring admission to the hospital. - Diagnoses Provider Diagnoses: Hematoma, Symptomatic anemia - Provider Notifications Discussed Care Of Patient With: Jailyn Guevara - hospitalist Instructed by Provider To: Admit As Inpatient Discharge - Sign-Out/Discharge Documenting (check all that apply): Discharge/Admit/Transfer - Discharge Plan Condition: Stable Disposition: ADMITTED TO [facility] Referrals: Garett Caldwell MD [Primary Care Provider] - The documentation as recorded by the Mariaa graham Julia accurately reflects the service I personally performed and the decisions made by , Armando Larkin MD.
--- NOTE | 2018-03-06 15:38 | PN ---
Subjective Date of Service: 03/06/18 Interval History: Had another "episode" of weakness, dizziness when he got up to the chair from bed to eat breakfast this morning. He now feels okay. His son Garfield is in the room this morning and expresses concern that he is not getting better and has been unable to participate in PT or even walk to the bathroom. Family History: Unchanged from Admission Social History: Unchanged from Admission Objective Active Medications: Acetaminophen (Tylenol Tab*) 650 mg PO Q4H PRN PRN Reason: FEVER/PAIN Last Admin: 03/05/18 08:29 Dose: 650 mg Aspirin (Aspirin 81 Mg Chew Tab*) 81 mg PO DAILY [facility] Last Admin: 03/06/18 07:47 Dose: 81 mg Atorvastatin Calcium (Lipitor*) 80 mg PO DAILY [facility] Last Admin: 03/06/18 07:47 Dose: 80 mg Brimonidine Tartrate (Alphagan P 0.1% (Nf)) 1 drop BOTH EYES BID [facility] Last Admin: 03/06/18 07:48 Dose: 1 drop Brinzolamide (Azopt 1% Ophth Taisha(Nf)) 1 drop RIGHT EYE BID [facility] Last Admin: 03/06/18 07:48 Dose: 1 drop Cyanocobalamin (Vitamin B12 Inj *) 1,000 mcg IM MONTHLY [facility] Midodrine (Midodrine (Nf)) 10 mg PO TID [facility] PRN Reason: Protocol Last Admin: 03/06/18 12:53 Dose: 10 mg Multivitamins/Minerals (Theragran/Minerals Tab*) 1 tab PO DAILY [facility] Last Admin: 03/06/18 07:47 Dose: 1 tab Ondansetron HCl (Zofran Odt Tab*) 4 mg PO Q6H PRN PRN Reason: NAUSEA/VOMITING Last Admin: 03/05/18 17:52 Dose: 4 mg Polyethylene Glycol/Electrolytes (Miralax*) 17 gm PO DAILY PRN PRN Reason: CONSTIPATION Last Admin: 02/28/18 11:34 Dose: 17 gm Prasugrel (Effient (Nf)) 10 mg PO DAILY [facility] Last Admin: 03/06/18 07:47 Dose: 10 mg Sertraline HCl (Zoloft*) 50 mg PO DAILY [facility] Last Admin: 03/06/18 07:47 Dose: 50 mg Vital Signs - 8 hr 05/0803/06/18 03/06/18 08:00 12:56 12:59 Temperature 98.4 F Pulse Rate 82 Respiratory 15 20 Rate Blood Pressure 126/44 (mmHg) O2 Sat by Pulse 98 Oximetry 03/06/18 15:08 Temperature 100.4 F Pulse Rate 74 Respiratory 16 Rate Blood Pressure 121/59 (mmHg) O2 Sat by Pulse 98 Oximetry Oxygen Devices in Use Now: None Appearance: alert, no distress sitting reclined in the chair Eyes: No Scleral Icterus, - - no nystagmus Ears/Nose/Mouth/Throat: NL Teeth, Lips, Gums Neck: NL Appearance and Movements; NL JVP, - - bruit over right carotid, none over left Respiratory: Symmetrical Chest Expansion and Respiratory Effort, Clear to Auscultation Cardiovascular: NL Sounds; No Murmurs; No JVD, RRR, No Edema Abdominal: NL Sounds; No Tenderness; No Distention Lymphatic: No Cervical Adenopathy Extremities: No Edema Skin: No Rash or Ulcers Neurological: Alert and Oriented x 3, - - finger to nose is in tact, coordination is in tact, object naming is in tact Result Diagrams: 03/06/18 08:16 03/06/18 08:16 Microbiology and Other Data: Microbiology 03/05/18 09:52 Aerobic Blood Culture - Preliminary Blood Venous No Growth Day 1 Anaerobic Blood Culture - Preliminary No Growth Day 1 Diagnostic Imaging: . Assess/Plan/Problems-Billing Assessment: 87 year old man with history of TIAs, severe carotid disease, and orthostatic hypotension who was admitted with dizziness, found to have anemia from a thigh hematoma, now with fever. - Patient Problems (1) Fever Current Visit: Yes Status: Acute Code(s): R50.9 - FEVER, UNSPECIFIED SNOMED Code(s): 687576204 Comment: Isolated yesterday (101 in the morning and 100.7 in [facility] afternoon) with no localizing symptoms UA negative, blood cultures negative may be drug side effect no other SIRS criteria (2) Episode of altered cognition Current Visit: Yes Status: Acute Code(s): R41.89 - OTH SYMPTOMS AND SIGNS W COGNITIVE FUNCTIONS AND AWARENESS SNOMED Code(s): 530936087 Comment: This occurs every time he gets up, especially in the morning, and I expressed to him and his family that there is little more that we can do besides increase the midodrine--which we will try today. With his level of carotid disease, even a slight drop in blood pressure when he sits/stands causes profound symptoms. We will double the midodrine today and see if he is able to participate in pm PT. (3) Anemia due to acute blood loss Current Visit: Yes Status: Acute Code(s): D62 - ACUTE POSTHEMORRHAGIC ANEMIA SNOMED Code(s): 593025624 Comment: Stable. He has received 3 U PRBCs this admission. (4) History of carotid artery stenosis Current Visit: Yes Status: Acute Code(s): Z86.79 - PERSONAL HISTORY OF OTHER DISEASES OF THE CIRCULATORY SYSTEM SNOMED Code(s): 866852045 Comment: continue asa, effient no surgical plans (5) Orthostasis Current Visit: Yes Status: Deleted Code(s): I95.1 - ORTHOSTATIC HYPOTENSION SNOMED Code(s): 363560746 Comment: no orthostasis here but documented as outpatient on tilt table test midodrine okay (6) History of TIA (transient ischemic attack) Current Visit: No Status: Deleted Comment: noted. no history of CVA and admission CT negative. Status and Disposition: inpatient. ready for discharge when bed at [facility] becomes available.
[2018-03-06] MEDS: Acetaminophen TAB* 325 MG PO PRN (16:12)
[2018-03-07] MEDS: Aspirin 81 mg CHEW TAB* 81 MG TAB.CHEW PO SCH (09:26)
[2018-03-07] MEDS: Atorvastatin* 80 MG TAB PO SCH (09:26)
[2018-03-07] MEDS: PTO Brimonidine P 0.1%(NF) 1 DROP BTL BOTH EYES SCH ×2 (09:35→21:21)
[2018-03-07] MEDS: PTO Brinzolamide 1% OPHTH SOL(NF) BTL RIGHT EYE SCH ×2 (09:35→21:20)
[2018-03-07] MEDS: CMC:Midodrine (NF) 5 MG TAB PO SCH ×3 (09:38→21:20)
[2018-03-07] MEDS: CMC:Prasugrel (NF) 10 MG PO SCH (09:38)
[2018-03-07] MEDS: Multivitamins/Minerals TAB PO SCH (09:38)
[2018-03-07] MEDS: Sertraline* 50 MG TAB PO SCH (09:38)
--- NOTE | 2018-03-07 14:15 | PN ---
Subjective Date of Service: 03/07/18 Interval History: Feels well at this moment, recalls feels "off" earlier today. Family History: Unchanged from Admission Social History: Unchanged from Admission Objective Active Medications: Acetaminophen (Tylenol Tab*) 650 mg PO Q4H PRN PRN Reason: FEVER/PAIN Last Admin: 03/06/18 16:12 Dose: 650 mg Aspirin (Aspirin 81 Mg Chew Tab*) 81 mg PO DAILY [facility] Last Admin: 03/07/18 09:26 Dose: 81 mg Atorvastatin Calcium (Lipitor*) 80 mg PO DAILY [facility] Last Admin: 03/07/18 09:26 Dose: 80 mg Brimonidine Tartrate (Alphagan P 0.1% (Nf)) 1 drop BOTH EYES BID [facility] Last Admin: 03/07/18 09:35 Dose: 1 drop Brinzolamide (Azopt 1% Ophth Taisha(Nf)) 1 drop RIGHT EYE BID [facility] Last Admin: 03/07/18 09:35 Dose: 1 drop Cyanocobalamin (Vitamin B12 Inj *) 1,000 mcg IM MONTHLY [facility] Midodrine (Midodrine (Nf)) 10 mg PO TID [facility] PRN Reason: Protocol Last Admin: 03/07/18 13:27 Dose: 10 mg Multivitamins/Minerals (Theragran/Minerals Tab*) 1 tab PO DAILY [facility] Last Admin: 03/07/18 09:38 Dose: 1 tab Ondansetron HCl (Zofran Odt Tab*) 4 mg PO Q6H PRN PRN Reason: NAUSEA/VOMITING Last Admin: 03/05/18 17:52 Dose: 4 mg Polyethylene Glycol/Electrolytes (Miralax*) 17 gm PO DAILY PRN PRN Reason: CONSTIPATION Last Admin: 02/28/18 11:34 Dose: 17 gm Prasugrel (Effient (Nf)) 10 mg PO DAILY [facility] Last Admin: 03/07/18 09:38 Dose: 10 mg Sertraline HCl (Zoloft*) 50 mg PO DAILY [facility] Last Admin: 03/07/18 09:38 Dose: 50 mg Vital Signs - 8 hr 03/07/18 03/07/18 07:31 08:00 Temperature 98.4 F Pulse Rate 42 80 Respiratory 20 16 Rate Blood Pressure 150/71 (mmHg) O2 Sat by Pulse 98 Oximetry Oxygen Devices in Use Now: None Appearance: Alert, in a chair. In very good spirits. Looks comfortable. Eyes: No Scleral Icterus Extremities: No Edema, No Clubbing, Cyanosis, - Skin: No Rash or Ulcers, No Nodules or Sclerosis, - Neurological: Alert and Oriented x 3, NL Sensation Result Diagrams: 03/06/18 08:16 03/06/18 08:16 Microbiology and Other Data: Microbiology 03/05/18 09:52 Aerobic Blood Culture - Preliminary Blood Venous No Growth Day 1 Anaerobic Blood Culture - Preliminary No Growth Day 1 Diagnostic Imaging: . Assess/Plan/Problems-Billing Assessment: 87 year old man with history of TIAs, severe carotid disease, and orthostatic hypotension who was admitted with dizziness, found to have anemia from a thigh hematoma, now with fever. - Patient Problems (1) CVA (cerebral vascular accident) Current Visit: Yes Status: Acute Code(s): I63.9 - CEREBRAL INFARCTION, UNSPECIFIED SNOMED Code(s): 799045152 Comment: MRI brain showed small subacute infarct in the right precentral gyrus. Symptoms continue intermittently and may be due to anxiety (03/07). - Significant carotid disease. CTA head and neck shows at the bifurcation the left internal carotid artery becomes completely occluded and the occlusion extends to the petrous carotid artery. Mixed attenuation atherosclerosis with high-grade right carotid bulb stenosis of 75%. Family do not want surgical intervention. - Continue ASA, midodrine, prasugrel. Not orthostatic 03/03. (2) Hematoma of left lower extremity Current Visit: Yes Status: Acute Code(s): S80.12XA - CONTUSION OF LEFT LOWER LEG, INITIAL ENCOUNTER SNOMED Code(s): 061673109 Comment: - CT showed hematoma Continue aspirin and effient due to subacute CVA. Hct up to 31 on 03/06. Repeat CBC in about a week. (3) Panic attacks Current Visit: Yes Status: Acute Code(s): F41.0 - PANIC DISORDER [EPISODIC PAROXYSMAL ANXIETY] SNOMED Code(s): 637081816 Comment: Pt agrees to trying sertraline. Started 25 mg daily 03/03, increase to 50 mg 03/05. (4) Hyponatremia Current Visit: Yes Status: Acute Code(s): E87.1 - HYPO-OSMOLALITY AND HYPONATREMIA SNOMED Code(s): 69177279 Comment: Possibly due to sertraline. Fluid restriction ordered, pt has not exceeded that amount. BMP 03/08. Status and Disposition: inpatient. ready for discharge when bed at [facility] becomes available.
[2018-03-08 05:47] LABS: EGFR Non-African American 111.7 (>60)
[2018-03-08] MEDS: PTO Brinzolamide 1% OPHTH SOL(NF) BTL RIGHT EYE SCH (07:49)
[2018-03-08] MEDS: PTO Brimonidine P 0.1%(NF) 1 DROP BTL BOTH EYES SCH (07:49)
[2018-03-08] MEDS: Aspirin 81 mg CHEW TAB* 81 MG TAB.CHEW PO SCH (07:50)
[2018-03-08] MEDS: Atorvastatin* 80 MG TAB PO SCH (07:50)
[2018-03-08] MEDS: Sertraline* 50 MG TAB PO SCH (07:50)
[2018-03-08] MEDS: Multivitamins/Minerals TAB PO SCH (07:50)
[2018-03-08] MEDS: CMC:Midodrine (NF) 5 MG TAB PO SCH (07:50)
[2018-03-08] MEDS: CMC:Prasugrel (NF) 10 MG PO SCH (07:50)
[2018-03-08 07:55] VITALS: BP 152/71
--- NOTE | 2018-03-08 10:26 | PN ---
Subjective Date of Service: 03/08/18 Interval History: Time spent on discharge 35 minutes. Family History: Unchanged from Admission Social History: Unchanged from Admission Objective Active Medications: Acetaminophen (Tylenol Tab*) 650 mg PO Q4H PRN PRN Reason: FEVER/PAIN Last Admin: 03/06/18 16:12 Dose: 650 mg Aspirin (Aspirin 81 Mg Chew Tab*) 81 mg PO DAILY [facility] Last Admin: 03/08/18 07:50 Dose: 81 mg Atorvastatin Calcium (Lipitor*) 80 mg PO DAILY [facility] Last Admin: 03/08/18 07:50 Dose: 80 mg Brimonidine Tartrate (Alphagan P 0.1% (Nf)) 1 drop BOTH EYES BID [facility] Last Admin: 03/08/18 07:49 Dose: 1 drop Brinzolamide (Azopt 1% Ophth Taisha(Nf)) 1 drop RIGHT EYE BID [facility] Last Admin: 03/08/18 07:49 Dose: 1 drop Cyanocobalamin (Vitamin B12 Inj *) 1,000 mcg IM MONTHLY [facility] Midodrine (Midodrine (Nf)) 10 mg PO TID [facility] PRN Reason: Protocol Last Admin: 03/08/18 07:50 Dose: 10 mg Multivitamins/Minerals (Theragran/Minerals Tab*) 1 tab PO DAILY [facility] Last Admin: 03/08/18 07:50 Dose: 1 tab Ondansetron HCl (Zofran Odt Tab*) 4 mg PO Q6H PRN PRN Reason: NAUSEA/VOMITING Last Admin: 03/05/18 17:52 Dose: 4 mg Polyethylene Glycol/Electrolytes (Miralax*) 17 gm PO DAILY PRN PRN Reason: CONSTIPATION Last Admin: 02/28/18 11:34 Dose: 17 gm Prasugrel (Effient (Nf)) 10 mg PO DAILY [facility] Last Admin: 03/08/18 07:50 Dose: 10 mg Sertraline HCl (Zoloft*) 50 mg PO DAILY [facility] Last Admin: 03/08/18 07:50 Dose: 50 mg Vital Signs - 8 hr 03/08/18 03/08/18 07:30 07:57 Temperature 99.4 F Pulse Rate 90 Respiratory 16 18 Rate Blood Pressure 152/71 (mmHg) O2 Sat by Pulse 98 Oximetry Oxygen Devices in Use Now: None Result Diagrams: 03/06/18 08:16 03/08/18 04:48 Microbiology and Other Data: Microbiology 03/05/18 09:52 Aerobic Blood Culture - Preliminary Blood Venous No Growth Day 1 Anaerobic Blood Culture - Preliminary No Growth Day 1 Diagnostic Imaging: . Assess/Plan/Problems-Billing Assessment: 87 year old man with history of TIAs, severe carotid disease, and orthostatic hypotension who was admitted with dizziness, found to have anemia from a thigh hematoma, now with fever. - Patient Problems (1) CVA (cerebral vascular accident) Current Visit: Yes Status: Acute Code(s): I63.9 - CEREBRAL INFARCTION, UNSPECIFIED SNOMED Code(s): 846378082 Comment: MRI brain showed small subacute infarct in the right precentral gyrus. Symptoms continue intermittently and may be due to anxiety (03/07). - Significant carotid disease. CTA head and neck shows at the bifurcation the left internal carotid artery becomes completely occluded and the occlusion extends to the petrous carotid artery. Mixed attenuation atherosclerosis with high-grade right carotid bulb stenosis of 75%. Family do not want surgical intervention. - Continue ASA, midodrine, prasugrel. Not orthostatic 03/03. (2) Hematoma of left lower extremity Current Visit: Yes Status: Acute Code(s): S80.12XA - CONTUSION OF LEFT LOWER LEG, INITIAL ENCOUNTER SNOMED Code(s): 150211507 Comment: - CT showed hematoma Continue aspirin and effient due to subacute CVA. Hct up to 31 on 03/06. Repeat CBC in about a week. (3) Panic attacks Current Visit: Yes Status: Acute Code(s): F41.0 - PANIC DISORDER [EPISODIC PAROXYSMAL ANXIETY] SNOMED Code(s): 954672692 Comment: Pt agrees to trying sertraline. Started 25 mg daily 03/03, increase to 50 mg 03/05. (4) Hyponatremia Current Visit: Yes Status: Acute Code(s): E87.1 - HYPO-OSMOLALITY AND HYPONATREMIA SNOMED Code(s): 83111275 Comment: Possibly due to sertraline. Fluid restriction ordered, pt has not exceeded that amount. [facility] 03/08. Status and Disposition: inpatient. ready for discharge when bed at [facility] becomes available.
--- NOTE | 2018-03-08 11:44 | TRS ---
ADDENDUM TO TRANSFER SUMMARY DATE OF ADMISSION: 02/25/2018. DATE OF TRANSFER: Date of transfer has been changed from 03/05/2018 to 03/08/2018. HOSPITAL COURSE: The patient developed hyponatremia likely due to Sertraline. I think Sertraline ma y be an important medication for him and other SSRI's likely to produce a similar degree of hyponatre olivia. His hyponatremia is mild and I think can be controlled with attention to adequate fluid restric tion. He is not really a big drinker. His BMP should be monitored periodically and I would suggest another repeat on March 12. The last two sodium levels here were both 129. [id number]/[facility] #: [id number]
--- NOTE | 2018-03-17 06:09 | TRS ---
ADDENDUM TO PRIOR TRANSFER SUMMARY: DATE OF ADMISSION: 02/25/18 DATE OF TRANSFER: 03/08/18 Please see the transfer summary dated 03/04/18. The patient's transfer was delayed as the receiving institution did not have the resources to take him at that date, but finally did have a bed available and resources to take the patient. The patient was clinically very stable and no significant changes were noted in his condition. Treatment and medications are as in the previous transfer summary. Discharge diagnosis and transfer medications are the same. I note that the patient's hemoglobin was 10.7 on 03/06/18. His hematocrit was 31. On the day of actual transfer, on 03/08/18, his sodium was 129, the same as 2 days prior to that. [id number]/[facility] #: [id number] MTDD
== END 2018-03-08 13:17 | DRG 811 ==
LOC: ED 17:49 → MED 22:33 → MEDTELE 02-28 19:33
PROVIDERS: ADMIT Hospitalist; ATTEND Internal Medicine
PROC: 30233N1 Transfusion of Nonautologous Red Blood Cells into Peripheral Vein, Percutaneous Approach (ICD-10-PCS; 2018-02-26)
PROC: 4A00X4Z Measurement of Central Nervous Electrical Activity, External Approach (ICD-10-PCS; principal; 2018-03-01)
DX: D62 Acute posthemorrhagic anemia (principal); I63.233 Cerebral infarction due to unspecified occlusion or stenosis of bilateral carotid arteries; E87.1 Hypo-osmolality and hyponatremia; K40.30 Unilateral inguinal hernia, with obstruction, without gangrene, not specified as recurrent; G81.91 Hemiplegia, unspecified affecting right dominant side; R47.01 Aphasia; M19.90 Unspecified osteoarthritis, unspecified site; M48.00 Spinal stenosis, site unspecified; N40.0 Benign prostatic hyperplasia without lower urinary tract symptoms; D51.3 Other dietary vitamin B12 deficiency anemia; G63 Polyneuropathy in diseases classified elsewhere; H40.9 Unspecified glaucoma; I95.1 Orthostatic hypotension; H53.2 Diplopia; F41.0 Panic disorder [episodic paroxysmal anxiety]; S76.112A Strain of left quadriceps muscle, fascia and tendon, initial encounter; G60.9 Hereditary and idiopathic neuropathy, unspecified; Z66 Do not resuscitate; R25.1 Tremor, unspecified; R29.703 NIHSS score 3; T43.225A Adverse effect of selective serotonin reuptake inhibitors, initial encounter; I10 Essential (primary) hypertension; Z86.73 Personal history of transient ischemic attack (TIA), and cerebral infarction without residual deficits; Z98.42 Cataract extraction status, left eye; Z98.41 Cataract extraction status, right eye; Z83.2 Family history of diseases of the blood and blood-forming organs and certain disorders involving the immune mechanism; Z80.8 Family history of malignant neoplasm of other organs or systems; Z72.89 Other problems related to lifestyle; Z79.82 Long term (current) use of aspirin; Z79.02 Long term (current) use of antithrombotics/antiplatelets; Z97.4 Presence of external hearing-aid
CPT/HCPCS: 36415; 70450; 70551; 71045; 80048; 80053; 81003; 82270; 82607; 82728; 82746; 83010; 83519; 83520; 83540; 83550; 83605; 83615; 83921; 84484; 85014; 85018; 85025; 85027; 85045; 85610; 86850; 86880; 86900; 86901; 86922; 87040; 93005; 93880; 95819; 99284; A9270-GY; G8978-GP-CL; G8978-GP-CN; G8979-GP-CI; J1940; P9016; P9040

== ENCOUNTER 2018-10-25 15:54 | Emergency (ER) | payer MEDICARE, OTHER ==
--- NOTE | 2018-10-25 16:01 | UC ---
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 Reports that it started when he sneezed. No other c/os. + hx nose bleed R nare every 3-4 years , but only once this significant, previous started with a sneeze. Recent airplane travel from [place] (2 flights). Denies f/c. No sob / cp / palpitations. Does take blood thinner d/t carotid hx. Notes that he once had atrial fibrillation. Denies melena / brbpr, last bm this afternoon, normal. Denies urinary sx. 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 PCP Dr. Caldwell. - History of Current Complaint Stated Complaint: NOSE BLEED Time Seen by Provider: 10/25/18 15:59 Hx Obtained From: Patient, Family/Medical Technologist Blood Bank - Allergy/Home Medications Allergies/Adverse Reactions: Allergies Allergy/AdvReac Type Severity Reaction Status Date / Time No Known Allergies Allergy Verified 10/25/18 16:25 PMH/Surg Hx/FS Hx/Imm Hx Previously Healthy: No - see hpi Other History Of: Negative For: Anticoagulant Therapy - Surgical History Surgical History: Yes Surgery Procedure, Year, and Place: KNEE SURGERY LEFT. CATARACTS BILATERAL EYES. DETATCHED RETINA RIGHT SIDE-DX'S DONE CLEARED BY DR CONTEH. TONSILS A CHILD - Family History Known Family History: Positive: Blood Disorder - father , Other - [place] - Social History Occupation: Retired Alcohol Use: Weekly Alcohol Amount: 2 drinks per week Substance Use Type: None Smoking Status (MU): Never Smoked Tobacco - Immunization History Most Recent Influenza Vaccination: November, Most Recent Pneumonia Vaccination: unknown Review of Systems All Other Systems Reviewed And Are Negative: Yes Constitutional: Positive: Fatigue Skin: Positive: Negative Eyes: Positive: Negative ENT: Positive: Other - see hpi Respiratory: Positive: Other - see hpi Cardiovascular: Positive: Other - see hpi Gastrointestinal: Positive: Other - see hpi Genitourinary: Positive: Negative Motor: Positive: Negative Neurovascular: Positive: Negative Musculoskeletal: Positive: Negative Neurological: Positive: Negative Psychological: Positive: Negative Is Patient Immunocompromised?: No Physical Exam Triage Information Reviewed: Yes Appearance: Well-Nourished - sitting up, able to converse in full sentences. Nose pinched. + blood at lips, small clot in post pharynx. No stridor. a little pale, nondiaphoretic Vital Signs Reviewed: Yes Eye Exam: Normal - grossly normal. perrla eomi. Nondilated. ENT Exam: Other - see above. Neck exam: Normal - + appearance of djd. but nad. Respiratory Exam: Normal Respiratory: Positive: Chest non-tender, Lungs clear, Normal breath sounds, No respiratory distress, No accessory muscle use Cardiovascular Exam: Other - HR regular, occas irreg beat, correlates with radial L / R pulse. Abdominal Exam: Normal Abdomen Description: Positive: Nontender Musculoskeletal Exam: Other - wearing afos, not removed for exam here. Denies recent c/os Neurological Exam: Normal - grossly nonfocal Psychological Exam: Normal - conversing easily and appropriately Skin Exam: Normal - a little pale, nondiaphoretic No visible or reported rash Course/Dx - Course Course Of Treatment: SR 71 with apc's vs ectopic beat. c/f SR 88. Oozing and clot in back of throat, not spitting clots. Able to converse in full sentences. No sob / cp. Does feel cold, nondiaphoretic. BP elevated. EMS transfer to ED. Pt agrees. D/w Dr. Rangel, ED. - Diagnoses Provider Diagnosis: Bleeding nose, Hypertension Discharge - Sign-Out/Discharge Documenting (check all that apply): Patient Departure All imaging exams completed and their final reports reviewed: No Studies - Discharge Plan Condition: Guarded Disposition: ADMITTED TO [facility] Referrals: Garett Caldwell MD [Primary Care Provider] - - Billing Disposition and Condition Condition: GUARDED Disposition: Admitted to [facility]
[2018-10-25 16:23] VITALS: BP 220/100
== END 2018-10-25 16:34 | disposition short-term general hospital (02) ==
LOC: UCEAST 15:54
DX: R04.0 Epistaxis (principal); Z79.01 Long term (current) use of anticoagulants; G62.9 Polyneuropathy, unspecified; I10 Essential (primary) hypertension
CPT/HCPCS: 93005; 99213; G0463

== ENCOUNTER 2018-10-25 16:55 | Emergency (ER) | payer MEDICARE, OTHER ==
[2018-10-25] MEDS ORDERED: hydrALAZINE IV* 20 MG/ML VIAL IV SLOW PU ONE ×2 (17:29→18:04)
[2018-10-25 17:38] LABS: ABS Basophils 0 10^3/ul (0-0.2); ABS Eosinophils 0.1 10^3/ul (0-0.6); ABS Lymphocytes 1.3 10^3/ul (1.0-4.8); ABS Monocytes 0.3 10^3/ul (0-0.8); ABS Neutrophils 2.6 10^3/ul (1.5-7.7); ABS Nucleated RBC 0 10^3/ul; Eosinophil % 2.2 %; Hematocrit 36 % (42-52); Hemoglobin 12.1 g/dl (14.0-18.0); Lymphocyte % 30.2 %; Mean Corpuscular HGB Conc 34 g/dl (31-36); Mean Corpuscular Hemoglobin 34 pg (27-31); Mean Corpuscular Volume 100 fL (80-94); Mean Platelet Volume 8.7 fL (7.4-10.4); Nucleated Red Blood Cells % 0.1; Platelet Count 126 10^3/ul (150-450); Red Blood Count 3.58 10^6/ul (4.00-5.40); Red Cell Distribution Width 15 % (10.5-15); White Blood Count 4.4 10^3/ul (3.5-10.8)
[2018-10-25 17:54] LABS: Activated Partial Thrombo Time 30.1 seconds (26.0-36.3); Albumin 3.6 g/dL (3.2-5.2); Albumin/Globulin Ratio 1.2 (1-3); BUN/Creatinine Ratio 26.8 (8-20); Calcium 8.9 mg/dL (8.6-10.3); EGFR Non-African American 88.5 (>60); INR 1.01 (0.77-1.02); Potassium 3.7 mmol/L (3.5-5.0); Total Bilirubin 0.6 mg/dL (0.2-1.0); Total Protein 6.6 g/dL (6.4-8.9)
[2018-10-25 17:57] LABS: Troponin I 0.03 ng/mL (<0.04)
[2018-10-25 17:59] LABS: CKMB ng/mL 4.9 ng/mL (0.6-6.3)
--- NOTE | 2018-10-25 18:08 | ED ---
Throat Pain/Nasal Congestion - HPI Summary HPI Summary: A 87 y/o male brought in by ambulance presents to the ED c/o epistaxis. In the ED room, the patient has a pulse of 95 BPM, O2 saturation of 100%, and blood pressure of 210/122. According to the patient, he sneezed after air travel yesterday from [place]. The sneeze led to a nose bleed that started at 1500 today. Patient went to where he was referred to [facility] ED. At , the patient's blood pressure was 214 systolic. Patient denies any SOB, CP, headache , dizziness, slurred speech, abdominal pain, or nausea. He stated that his nose was still bleeding when he pinched it. The bleeding was going down his throat but he thinks it slowed down. He thought that there was small clots originally when the bleeding started, but then became straight blood. The bleeding was coming mostly out of the right nostril more, but overspilled into the left nostril. Patient lives by himself at [facility]. Patient wears leg braces for his neuropathy (more so on the right). The pt has hx afib on Effient, and also bilateral critical carotid stenosis. Pt has no prior hx HTN. Takes midodrine to keep his pressure high enough to perfuse his carotids, due to critical stenosis. Per pt the stenoses were deemed inoperable due to risk of stroke from poor collateral flow. Garfield Aly: [phone] - Pt's son in [place]. Call first. Lucía Brizuela: [phone]- Pt's other son, work number, not available after 7pm, but Lucía can be in touch with Garfield via [email or web address]. I spoke with both sons by phone. Both sons are award of need for transfer and [facility] - History of Current Complaint Chief Complaint: EDEpistaxis Time Seen by Provider: 10/25/18 16:57 Hx Obtained From: Patient, Other: - Dr. Tucker, urgent care Onset/Duration: Sudden Onset, Lasting Hours, Still Present Severity: Severe Associated Signs And Symptoms: Positive: Nasal Discharge - BLEEDING, EPISTAXIS, bilat, primarily right Cough: None Related History: Other (Noted In Comments) - hx prior nosebleeds - Allergies/Home Medications Allergies/Adverse Reactions: Allergies Allergy/AdvReac Type Severity Reaction Status Date / Time No Known Allergies Allergy Verified 10/25/18 16:25 PMH/Surg Hx/FS Hx/Imm Hx Previously Healthy: No Endocrine/Hematology History: Reports: Hx Anticoagulant Therapy - antiplatelet therapy Denies: Hx Blood Disorders, Hx Diabetes Cardiovascular History: Reports: Other Cardiovascular Problems/Disorders - carotid artery stenosis B/L Denies: Hx Hypercholesterolemia, Hx Pacemaker/ICD Respiratory History: Denies: Hx Asthma, Hx Chronic Obstructive Pulmonary Disease (COPD), Hx Pneumonia, Hx Pulmonary Embolism History: Reports: Hx Benign Prostatic Hyperplasia Denies: Hx Renal Disease Musculoskeletal History: Reports: Hx Arthritis Sensory History: Reports: Hx Contacts or Glasses, Hx Hearing Aid Opthamlomology History: Reports: Hx Contacts or Glasses Neurological History: Reports: Hx Transient Ischemic Attacks (TIA), Other Neuro Impairments/Disorders - peripheral neuropathy, wears bilateral leg braces Psychiatric History: Denies: Hx Panic Disorder - Surgical History Surgery Procedure, Year, and Place: KNEE SURGERY LEFT. CATARACTS BILATERAL EYES. DETATCHED RETINA RIGHT SIDE-DX'S DONE CLEARED BY DR CONTEH. 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 Lives: Assisted Living - [facility] Alcohol Use: Weekly Alcohol Amount: 2 drinks per week Hx Substance Use: No Substance Use Type: Reports: None Hx Tobacco Use: No Smoking Status (MU): Never Smoked Tobacco Review of Systems Negative: Fever Positive: Epistaxis Negative: Chest Pain Negative: Shortness Of Breath Negative: Abdominal Pain, Nausea Musculoskeletal: Negative Skin: Negative Neurological: Other - NEGATIVE: DIZZINESS Negative: Headache, Slurred Speech Psychological: Normal All Other Systems Reviewed And Are Negative: Yes Physical Exam - Summary Physical Exam Summary: Appearance: Well-appearing, no pain distress, well-nourished, nasal clamp in place, clotted blood visible in both nares Skin: Warm, color reflects adequate perfusion, dry Head: Normal Head/Face inspection, atraumatic Eyes: Conjunctiva clear ENT: clotted blood in both nares, Pharynx with bright red blood Neck: Supple, no nodes, no JVD Respiratory: Lungs clear, normal breath sounds, no respiratory distress Cardio: irregular rhythm, No murmur, pulses normal, brisk capillary refill Abdomen: Soft, nontender Bowel sounds: Present Musculoskeletal: Strength Intact/ROM intact, no calf tenderness, no edema. Psychological: Normal Neuro: Alert, muscle tone normal, no focal deficit, bilateral leg braces in place GCS: 15 Triage Information Reviewed: Yes Vital Signs On Initial Exam: Initial Vitals Temp Pulse Resp BP Pulse Ox 99 F 66 16 212/93 100 10/25/18 17:07 10/25/18 17:07 10/25/18 17:07 10/25/18 17:07 10/25/18 17:07 Vital Signs Reviewed: Yes - Gloria Coma Scale Best Eye Response: 4 - Spontaneous Best Motor Response: 6 - Obeys Commands Best Verbal Response: 5 - Oriented Coma Scale Total: 15 Procedures - Procedure Summary Procedure Summary: 1906 - NASAL PROCEDURE: 4.5cm RHINOROCKETS applied bilaterally with 8cc air placed in each balloon, after soaking in sterile NS. Bleeding controlled after rhinorockets in place. Pt tolerated procedure. Diagnostics - Vital Signs Vital Signs Temp Pulse Resp BP Pulse Ox 10/25/18 17:35 74 9 210/122 100 10/25/18 17:34 86 98 10/25/18 17:29 100 10/25/18 17:07 99 F 66 16 212/93 100 - Laboratory Lab Results: Lab Results 10/25/18 10/25/18 10/25/18 Range/Units 17:25 17:29 17:29 WBC 4.4 (3.5-10.8) 10^3/ul RBC 3.58 L (4.00-5.40) 10^6/ul Hgb 12.1 L (14.0-18.0) g/dl Hct 36 L (42-52) % MCV 100 H (80-94) fL MCH 34 H (27-31) pg MCHC 34 (31-36) g/dl RDW 15 (10.5-15) % Plt Count 126 L (150-450) 10^3/ul MPV 8.7 (7.4-10.4) fL Neut % (Auto) 58.9 % Lymph % (Auto) 30.2 % Kerr % (Auto) 7.6 % Eos % (Auto) 2.2 % Baso % (Auto) 1.1 % Absolute Neuts (auto) 2.6 (1.5-7.7) 10^3/ul Absolute Lymphs (auto) 1.3 (1.0-4.8) 10^3/ul Absolute Monos (auto) 0.3 (0-0.8) 10^3/ul Absolute Eos (auto) 0.1 (0-0.6) 10^3/ul Absolute Basos (auto) 0 (0-0.2) 10^3/ul Absolute Nucleated RBC 0 10^3/ul Nucleated RBC % 0.1 INR (Anticoag Therapy) (0.77-1.02) APTT (26.0-36.3) seconds Sodium 140 (135-145) mmol/L Potassium 3.7 (3.5-5.0) mmol/L Chloride 107 (101-111) mmol/L Carbon Dioxide 28 (22-32) mmol/L Anion Gap 5 (2-11) mmol/L BUN 22 (6-24) mg/dL Creatinine 0.82 (0.67-1.17) mg/dL Est GFR ( Amer) 107.0 (>60) Est GFR (Non-Af Amer) 88.5 (>60) BUN/Creatinine Ratio 26.8 H (8-20) Glucose 102 H (70-100) mg/dL Lactic Acid (0.5-2.0) mmol/L Calcium 8.9 (8.6-10.3) mg/dL Total Bilirubin 0.60 (0.2-1.0) mg/dL AST 24 (13-39) U/L ALT 16 (7-52) U/L Alkaline Phosphatase 56 (34-104) U/L Total Creatine Kinase 86 (10-223) U/L CK-MB (CK-2) 4.9 (0.6-6.3) ng/mL Troponin I 0.03 (<0.04) ng/mL B-Natriuretic Peptide 445 H (<=100) pg/mL Total Protein 6.6 (6.4-8.9) g/dL Albumin 3.6 (3.2-5.2) g/dL Globulin 3.0 (2-4) g/dL Albumin/Globulin Ratio 1.2 (1-3) 12/27/18 12/27/18 Range/Units 17:29 17:29 WBC (3.5-10.8) 10^3/ul RBC (4.00-5.40) 10^6/ul Hgb (14.0-18.0) g/dl Hct (42-52) % MCV (80-94) fL MCH (27-31) pg MCHC (31-36) g/dl RDW (10.5-15) % Plt Count (150-450) 10^3/ul MPV (7.4-10.4) fL Neut % (Auto) % Lymph % (Auto) % Kerr % (Auto) % Eos % (Auto) % Baso % (Auto) % Absolute Neuts (auto) (1.5-7.7) 10^3/ul Absolute Lymphs (auto) (1.0-4.8) 10^3/ul Absolute Monos (auto) (0-0.8) 10^3/ul Absolute Eos (auto) (0-0.6) 10^3/ul Absolute Basos (auto) (0-0.2) 10^3/ul Absolute Nucleated RBC 10^3/ul Nucleated RBC % INR (Anticoag Therapy) 1.01 (0.77-1.02) APTT 30.1 (26.0-36.3) seconds Sodium (135-145) mmol/L Potassium (3.5-5.0) mmol/L Chloride (101-111) mmol/L Carbon Dioxide (22-32) mmol/L Anion Gap (2-11) mmol/L BUN (6-24) mg/dL Creatinine (0.67-1.17) mg/dL Est GFR ( Amer) (>60) Est GFR (Non-Af Amer) (>60) BUN/Creatinine Ratio (8-20) Glucose (70-100) mg/dL Lactic Acid 1.0 (0.5-2.0) mmol/L Calcium (8.6-10.3) mg/dL Total Bilirubin (0.2-1.0) mg/dL AST (13-39) U/L ALT (7-52) U/L Alkaline Phosphatase (34-104) U/L Total Creatine Kinase (10-223) U/L CK-MB (CK-2) (0.6-6.3) ng/mL Troponin I (<0.04) ng/mL B-Natriuretic Peptide (<=100) pg/mL Total Protein (6.4-8.9) g/dL Albumin (3.2-5.2) g/dL Globulin (2-4) g/dL Albumin/Globulin Ratio (1-3) Result Diagrams: 10/25/18 17:29 10/25/18 17:29 Lab Statement: Any lab studies that have been ordered have been reviewed, and results considered in the medical decision making process. - Radiology CXR Radiology Interpretation Completed By: Radiologist Summary of Radiographic Findings: HYPERINFLATION NO ACTIVE CARDIOPULMONARY DISEASE. ED PHYSICIAN REVIEWED THIS RADIOLOGY REPORT. - CT BRAIN CT CT Interpretation Completed By: Radiologist Summary of CT Findings: 1. No acute intracranial pathology. 2. Air-fluid levels in the bilateral maxillary sinuses and right sphenoid sinus, likely hemorrhage given history of nosebleed. ED PHYSICIAN REVIEWED THIS RADIOLOGY REPORT. - EKG 1747 Cardiac Rate: Other Rate - ECTOPIC ATRIAL 69 BPM EKG Rhythm: Sinus Rhythm - 69 BPM, ECTOPIC ATRIAL EKG Comparison: No Significant Change - NO SIGNIFICANT CHANGE COMPARED WITH . Summary of EKG Findings: nl TIM CT, nl QTc, no acute changes Re-Evaluation - Re-Evaluation First Eval Re-Evaluation Time: 17:50 Change: Unchanged Comment: SPOKE TO PATIENT'S FAMILY. Second Eval Re-Evaluation Time: 18:02 Change: Worse Comment: PATIENT'S NOSE IS STILL BLEEDING OUT OF BOTH NOSTRILS. PATIENT'S BREATHING IS FINE. PATIENT WILL BE PREPARED FOR TRANSFER. PATIENT'S BLOOD PRESSURE IS 217/129. ER MD NOTIFIED LUCÍA BRIZUELA. Third Eval Re-Evaluation Time: 18:29 Change: Improved Comment: BLOOD PRESSURE IS 200/96. Rhinorockets applied bilaterally. EENT Course/Dx - Course Course Of Treatment: A 87 y/o male brought in by ambulance presents to the ED c/ o epistaxis. In the ED room, the patient has a pulse of 95 BPM, O2 saturation of 100%, and blood pressure of 210/122. According to the patient, he sneezed after air travel yesterday from [place]. The sneeze led to a nose bleed that started at 1500 today. Patient went to where he was referred to [facility] ED. At , the patient's blood pressure was 214 systolic. Patient denies any SOB, CP , headache, dizziness, slurred speech, abdominal pain, or nausea. The bleeding was coming mostly out of the right nostril more, but over spilled into the left nostril. Pt has hx afib is on Effient (prasugrel), also hx critical bilateral carotid stenosis. Physical examination findings were significant for well- appearing, no pain distress, well-nourished, nasal clamp in place, clotted blood visible in both nares, clotted blood in both nares. Diffuse bleeding bilateral nostrils. Pt medications reviewed this visit. A CXR revealed hyperinflation, no active cardiopulmonary disease. An EKG revealed ectopic atrial of 69 BPM, nl TIM CT, nl QTc, no acute changes. No significant change compared to EKG on 02/25/2018. A Brain CT revealed 1. No acute intracranial pathology. 2. Air-fluid levels in the bilateral maxillary sinuses and right sphenoid sinus, likely hemorrhage given history of nosebleed. Hematology, coagulation, and Chemistry screens were done. Initial HCT is 36, BNP is 445. INR is normal. In the ED course, the patient received hydralazine 5mg IV x 2 and metoprolol 5mg IV with decrease in systolic BP less than 200, to 180. During re-evaluation, the patients nose is still bleeding out of both nostrils , so pt will be transferred. Patients breathing is fine. Patients blood pressure is 217/129 on admission. Patients family was notified. Patient will be prepared for transfer because no ENT is available director of consulting services at [facility] today, and pt is on antiplatelet agent prasugrel that cannot be reversed, and pt's BP needs careful control due to critical bilateral carotid stenosis. Patient care was discussed with Dr. Huber, ENT, at [facility] (ENT) who recommends the rhinorockets and accepts patient for transfer from ED to ED. Dr. Farnsworth ED physician accepts to the [facility] ED. Patient will be transferred due to lack of coverage for ENT physician at [facility] today. Patient will be transferred with a diagnosis of epistaxis, antiplatelet therapy, and malignant hypertension. Patient is agreeable with this plan. Bilateral rhinorockets have been placed with control of epistaxis. NTG drip will be initiated for control of BP during transfer. - Diagnoses Provider Diagnoses: Epistaxis, Malignant hypertension - Provider Notifications Discussed Care Of Patient With: Dr. Huber Time Discussed With Above Provider: 18:29 Instructed by Provider To: Other - Patient care was discussed with Dr. Huber at [facility] (ENT) who recommends the rhinorocket and accepts patient for transfer from ED to ED. ED physician, Dr. Farnsworth is the accepting physician at [facility]. Discharge - Sign-Out/Discharge Documenting (check all that apply): Patient Departure - TRANSFER - Discharge Plan Condition: Stable Disposition: TRANS HIGHER LVL OF CARE FAC Referrals: Garett Caldwell MD [Primary Care Provider] - - Billing Disposition and Condition Condition: STABLE Disposition: Trans Higher Lvl of Care Fac - Attestation Statements Document Initiated by Julien: Yes Documenting Scribe: Sam Sanchez Provider For Whom Scribe is Documenting (Include Credential): Sonia Mendoza MD Scribe Attestation: Sam Sagastume scribed for Sonia Mendoza MD on 10/25/18 at 1939. Scribe Documentation Reviewed: Yes Provider Attestation: The documentation as recorded by the Sam graham accurately reflects the service I personally performed and the decisions made by , Sonia Mendoza MD Status of Scribe Document: Viewed
[2018-10-25] MEDS ORDERED: Metoprolol Tartrate IV* 1 MG/ML 5 ML VIAL IV ONE (18:33)
[2018-10-25] MEDS ORDERED: Metoprolol Tartrate IV* 1 MG/ML 5 ML VIAL ONE (18:35)
[2018-10-25 19:06] LABS: Urine Appearance Clear; Urine Bilirubin Negative (Negative); Urine Blood Negative (Negative); Urine Color Yellow; Urine Glucose 1+(50 mg/dL) (Negative); Urine Ketones Negative (Negative); Urine Nitrite Negative (Negative); Urine Protein Negative (Negative); Urine Specific Gravity 1.014 (1.010-1.030); Urine Urobilinogen Negative (Negative)
[2018-10-25] MEDS ORDERED: nitroGLYCERIN DRIP* 25,000 MCG/250 ML BTL IV ONE (19:49)
[2018-10-25] MEDS ORDERED: nitroGLYCERIN DRIP* 25,000 MCG/250 ML BTL ONE (19:50)
[2018-10-25 20:06] VITALS: BP 201/98
== END 2018-10-25 20:07 | disposition short-term general hospital (02) ==
LOC: ED 16:55
DX: R04.0 Epistaxis (principal); I10 Essential (primary) hypertension; Z79.02 Long term (current) use of antithrombotics/antiplatelets; Z79.01 Long term (current) use of anticoagulants; G62.9 Polyneuropathy, unspecified
CPT/HCPCS: 36415; 70450; 71045; 80053; 81003; 82550; 82553; 83605; 83880; 84484; 85025; 85610; 85730; 93005; 96374; 96375; 96376; 99284; J0360; J3490

== ENCOUNTER 2018-11-15 04:55 | Emergency (ER) | payer MEDICARE, OTHER ==
[2018-11-15] MEDS ORDERED: Labetalol IV* 5 MG/ML 20 ML VIAL IV PUSH ONE (04:59)
[2018-11-15] MEDS ORDERED: Morphine VIAL* 4 MG/ML VIAL (1 ml vial) IV ONE (04:59)
[2018-11-15] MEDS ORDERED: Ondansetron INJ* 2 MG/ML VIAL IV ONE (05:00)
--- NOTE | 2018-11-15 05:10 | ED ---
Throat Pain/Nasal Congestion - HPI Summary HPI Summary: An 87 y/o male brought in by [facility] ambulance presents to [facility] with a chief complaint of epistaxis since 05:00 11/15/18. The patient had his nose cauterized the afternoon of 11/14/18. He reports taking aspirin. He also c/o nose soreness but denies any pain. Hx of HTN. - History of Current Complaint Chief Complaint: EDEpistaxis Time Seen by Provider: 11/15/18 04:58 Hx Obtained From: Patient, EMS Onset/Duration: Sudden Onset, Lasting Hours, Still Present Severity: Severe Associated Signs And Symptoms: Positive: Sinus Discomfort - soreness - Allergies/Home Medications Allergies/Adverse Reactions: Allergies Allergy/AdvReac Type Severity Reaction Status Date / Time No Known Allergies Allergy Verified 10/25/18 16:25 PMH/Surg Hx/FS Hx/Imm Hx Endocrine/Hematology History: Reports: Hx Anticoagulant Therapy - antiplatelet therapy Denies: Hx Blood Disorders, Hx Diabetes Cardiovascular History: Reports: Hx Hypertension, Other Cardiovascular Problems/ Disorders - carotid artery stenosis B/L Denies: Hx Hypercholesterolemia, Hx Pacemaker/ICD Respiratory History: Denies: Hx Asthma, Hx Chronic Obstructive Pulmonary Disease (COPD), Hx Pneumonia, Hx Pulmonary Embolism History: Reports: Hx Benign Prostatic Hyperplasia Denies: Hx Renal Disease Musculoskeletal History: Reports: Hx Arthritis Sensory History: Reports: Hx Contacts or Glasses, Hx Hearing Aid Opthamlomology History: Reports: Hx Contacts or Glasses Neurological History: Reports: Hx Transient Ischemic Attacks (TIA), Other Neuro Impairments/Disorders - peripheral neuropathy, wears bilateral leg braces Psychiatric History: Denies: Hx Panic Disorder - Surgical History Surgery Procedure, Year, and Place: KNEE SURGERY LEFT. CATARACTS BILATERAL EYES. DETATCHED RETINA RIGHT SIDE-DX'S DONE CLEARED BY DR CONTEH. TONSILS A CHILD - Immunization History Date of Tetanus Vaccine: unk Date of Influenza Vaccine: unk Infectious Disease History: No Infectious Disease History: Denies: Traveled Outside the US in Last 30 Days - Family History Known Family History: Positive: Cardiac Disease, Blood Disorder - father , Other - [place] - Social History Alcohol Use: Weekly Alcohol Amount: 2 drinks per week Hx Substance Use: No Substance Use Type: Reports: None Hx Tobacco Use: No Smoking Status (MU): Never Smoked Tobacco Review of Systems Negative: Fever ENT: Other - Positive: nose soreness Positive: Epistaxis All Other Systems Reviewed And Are Negative: Yes Physical Exam - Summary Physical Exam Summary: VITAL SIGNS: Reviewed. GENERAL: Patient is a well-developed and nourished MALE who is lying comfortable in the stretcher. Patient is not in any acute respiratory distress. HEAD AND FACE: Active bleeding from both nostrils right more than left. No signs of trauma. No ecchymosis, hematomas or skull depressions. No sinus tenderness. EYES: PERRLA, EOMI x 2, No injected conjunctiva, no nystagmus. EARS: Hearing grossly intact. Ear canals and tympanic membranes are within normal limits. MOUTH: Oropharynx within normal limits. NECK: Supple, trachea is midline, no adenopathy, no JVD, no carotid bruit, no c- spine tenderness, neck with full ROM. CHEST: Symmetric, no tenderness at palpation LUNGS: Clear to auscultation bilaterally. No wheezing or crackles. CVS: Regular rate and rhythm, S1 and S2 present, no murmurs or gallops appreciated. ABDOMEN: Soft, non-tender. No signs of distention. No rebound no guarding, and no masses palpated. Bowel sounds are normal. EXTREMITIES: FROM in all major joints, no edema, no cyanosis or clubbing. NEURO: Alert and oriented x 3. No acute neurological deficits. Speech is normal and follows commands. SKIN: Dry and warm Triage Information Reviewed: Yes Vital Signs On Initial Exam: Initial Vitals Temp Pulse Resp BP Pulse Ox 99.6 F 96 24 191/112 100 11/15/18 04:57 11/15/18 04:57 11/15/18 04:57 11/15/18 04:57 11/15/18 04:57 Vital Signs Reviewed: Yes Procedures - Procedure Summary Procedure Summary: Bilateral rhino rocket 5.5 cm bilaterally each with good hemostasis. Diagnostics - Vital Signs Vital Signs Temp Pulse Resp BP Pulse Ox 11/15/18 04:57 99.6 F 96 24 191/112 100 - Laboratory Result Diagrams: 11/15/18 05:07 11/15/18 05:07 Lab Statement: Any lab studies that have been ordered have been reviewed, and results considered in the medical decision making process. Re-Evaluation - Re-Evaluation First Eval Re-Evaluation Time: 05:20 Change: Unchanged Comment: Rhino rocket procedure Second Eval Re-Evaluation Time: 05:29 Change: Unchanged Comment: Rhino rocket procedure EENT Course/Dx - Course Course Of Treatment: An 87 y/o male brought in by [facility] ambulance presents to [facility] with a chief complaint of epistaxis since 05:00 11/15/18. The patient had his nose cauterized the afternoon of 11/14/18. He reports taking aspirin. He also c/o nose soreness but denies any pain. Hx of HTN. The physical exam revelaed Active bleeding from both nostrils right more than left. Bilateral rhino rocket 5.5 cm bilaterally each with good hemostasis was done. In the ED course he was given Narcan IV, Zofran IV, Morphine IV, Trandate IV and Augmentin PO. The patient will be discharged and will follow up Dr. Andres, who cauterized his nose. Strict return precautions given. The patient is agreeable with this plan. - Diagnoses Provider Diagnoses: Epistaxis Discharge - Sign-Out/Discharge Documenting (check all that apply): Patient Departure - DC - Discharge Plan Condition: Stable Disposition: HOME Prescriptions: Amoxicillin/Clavulanate TAB* [Augmentin TAB 875*] 875 mg PO BID #10 tab Referrals: Garett Caldwell MD [Primary Care Provider] - (1-2 days) Сергей Andres MD [Medical Doctor] - (Today) Additional Instructions: Follow up with Dr. Andres today. RETURN TO THE EMERGENCY DEPARTMENT FOR CHANGING OR WORSENING SYMPTOMS. FOLLOW UP WITH PCP IN 1-2 DAYS. - Billing Disposition and Condition Condition: STABLE Disposition: Home - Attestation Statements Document Initiated by Julien: Yes Documenting Scribe: Zbigniew Valenzuela Provider For Whom Julien is Documenting (Include Credential): Bernardo Stroud MD Scribe Attestation: I, Zbigniew Valenzuela, scribed for Bernardo Stroud MD on 11/16/18 at 0530. Scribe Documentation Reviewed: Yes Provider Attestation: The documentation as recorded by the Zbigniew graham accurately reflects the service I personally performed and the decisions made by me, Bernardo Stroud MD Status of Scribe Document: Viewed
[2018-11-15] MEDS ORDERED: Amoxicillin/Clavulanate TAB* 875 MG PO ONE (05:13)
[2018-11-15 05:15] LABS: ABS Basophils 0.1 10^3/ul (0-0.2); ABS Eosinophils 0.2 10^3/ul (0-0.6); ABS Lymphocytes 2.2 10^3/ul (1.0-4.8); ABS Monocytes 0.6 10^3/ul (0-0.8); ABS Neutrophils 4.5 10^3/ul (1.5-7.7); ABS Nucleated RBC 0 10^3/ul; Eosinophil % 2.1 %; Hematocrit 31 % (42-52); Hemoglobin 10.7 g/dl (14.0-18.0); Mean Corpuscular HGB Conc 34 g/dl (31-36); Mean Corpuscular Hemoglobin 34 pg (27-31); Mean Corpuscular Volume 100 fL (80-94); Mean Platelet Volume 8.3 fL (7.4-10.4); Nucleated Red Blood Cells % 0; Platelet Count 154 10^3/ul (150-450); Red Cell Distribution Width 15 % (10.5-15); White Blood Count 7.5 10^3/ul (3.5-10.8)
[2018-11-15 05:21] LABS: Activated Partial Thrombo Time 28.7 seconds (26.0-36.3)
[2018-11-15 05:30] LABS: Albumin 3.6 g/dL (3.2-5.2); Albumin/Globulin Ratio 1.4 (1-3); BUN/Creatinine Ratio 28.6 (8-20); Calcium 8.8 mg/dL (8.6-10.3); Globulin 2.5 g/dL (2-4); Potassium 3.9 mmol/L (3.5-5.0); Total Bilirubin 0.6 mg/dL (0.2-1.0); Total Protein 6.1 g/dL (6.4-8.9)
[2018-11-15] MEDS ORDERED: Naloxone* 0.4 MG/ML 1 ML VIAL ONE (05:30)
[2018-11-15] MEDS ORDERED: Naloxone* 0.4 MG/ML 1 ML VIAL IV PUSH ONE (05:31)
--- OUTSIDE RECORDS SUMMARY | 2018-11-15 05:38 | XMS REPORT | Continuity of Care Document ---
:1930 External Reference #:[id number] Author Name Jacquelyn Davis Care Team Providers Name Role Phone Garett Caldwell MD Primary Care Physician Unavailable Payers Type Date Identification Numbers Payment Provider Subscriber Policy Number: [id number] Medicare Сергей Lu PayID: [id number] [address] [place] [address] Policy Number: [id number] [facility] Сергей Lu Group Number: [id number] [address] [address] [place] [address] Policy Number: [id number] [facility] Сергей Lu PayID: [id number] [address] [place] [address] Policy Number: [id number] [facility] Сергей Lu PayID: [id number] [place] [address] Advance Directives Description No Information Available Problems Date Description Provider Status Onset: 09/27/2012 Acute upper respiratory Arianna Tabby N.P. Active infection Onset: 04/09/2018 Carotid artery occlusion Kolton Perez M.D. Active Onset: 04/09/2018 Dizziness and giddiness Kolton Perez M.D. 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 Length cm L calf circum 38cm, Rt calf 33 1/2cm Aspirin Ec Active Tablets DR 325mg 30tab take 1 tab Unknown /0000 s by mouth every day.. . Alphagan P Active Solution 0.1% 1 drop in Unknown /0000 right eye bid Azopt Active Suspension 1% 1 drop in rt Unknown /0000 eye qd Daily Vitamin 00 Active Tablets 1 tab po qd Unknown /0000 Finasteride Active Tablets 5mg 1 tab po qd Unknown /0000 Tramadol HCL Active Tablets 50mg 2 tablets Unknown /0000 every 6 hours as needed Atorvastatin Active Tablets 80mg 1 by mouth Unknown Calcium /0000 every day Cyanocobalamin Active Solution 1000mcg/M 1 Unknown /0000 L milliliters intramuscula r [id number] Effient Active Tablets 10mg 1 by mouth Unknown /0000 every day Preservision Active Capsules 2 tab by Unknown Areds /0000 mouth once a day Orchard 3 Active Capsules 2 tab by Unknown /0000 mouth daily Vitamin D3 Active Capsules 2000Unit 1 by mouth Unknown /0000 every day Midodrine HCL Active Tablets 10mg 1 by Unknown /0000 mouththree times every day Polyethylene Active Powder 17gm by Unknown Glycol 300 /0000 mouth as needed Mepilex 11/11 Hx apply to 707.21 pressure [place]-W - wound every , 01/22 3 days after N.P. washing Cyanocobalamin 09/17 Hx Solution 1000mcg/M 4unit Use 1 ML L s Once Every [place]-W - Three Weeks atson, 11/25 N.P. /2015 Finasteride Hx Unknown /0000 - 11/25 Cod Liver Oil Hx Capsules 1 tab po qd Unknown /0000 - 04/08 Glucosamine Hx Tablets 2 caps po qd Unknown Chondroitin MSM / Triple Strength - 04/08 Ocuvite Hx Tablets twice a day Unknown / - 04/08 Santyl Hx 250Units/ Unknown Collagenase / G Ointment - 01/10 Vitamin B-12 Hx Tablets Sub 1000mcg 1 by mouth Unknown every day - 04/08 Ondansetron Hx Tablets 4mg dissolve one Dispers tablet - orally every 10/31 6 hours needed for nausea. Mylanta Hx Suspension 200-200-2 every 4 Unknown 0mg/5ML hours as - needed/as 07/09 Acetaminophen Hx Tablets 325 2 tabs every Unknown 6 hours as - needed 10/[address] as needed - 07/09 Medications Administered in Office Medication Date Status Form Strength Qnty SIG Indications Ordering Provider Depomedrol Administered Injection Bjorn F 40MG Alexis Rios MD Depomedrol Administered Injection Bjorn F 40MG Alexis Rios MD No Injection Administered Injection Bjorn Rios MD Depomedrol Administered Injection Bjorn F 40MG Alexis Rios MD Synvisc Or Administered Injection Opal Synvisc-One 014 Sunita, Injection 1 RPA-C MG Synvisc Or Administered Injection Hoahaoism HKaren Synvisc-One 014 Johnithen, Injection 1 R.P.A.-C MG Synvisc Or Administered Injection Nima Synvisc-One 014 Aldo, Injection 1 M.D. MG Depomedrol Administered Injection Nima 80MG 011 Vincenzo Carlson Immunizations Description No Information Available Vital Signs Date Vital Result Comment 11/09/2018 2:06pm Height 71 inches 5'11" Weight 150.00 lb Heart Rate 72 /min BP Systolic Sitting 100 mmHg BP Diastolic Sitting 60 mmHg Respiratory Rate 16 /min BMI (Body Mass Index) 20.9 kg/m2 10/01/2018 10:11am Weight 159.00 lb Heart Rate 72 /min BP Systolic Sitting 126 mmHg BP Diastolic Sitting 78 mmHg Respiratory Rate 20 /min Body Temperature 97.1 F O2 % BldC Oximetry 98 % 09/24/2018 10:45am Weight 161.25 lb Heart Rate 84 /min BP Systolic Sitting 122 mmHg BP Diastolic Sitting 66 mmHg Respiratory Rate 22 /min Body Temperature 96.5 F 09/14/2018 10:40am Weight 161.12 lb Heart Rate 78 /min BP Systolic Sitting 112 mmHg BP Diastolic Sitting 70 mmHg Respiratory Rate 20 /min Body Temperature 96.3 F 08/27/2018 2:41pm Heart Rate 92 /min BP Systolic 142 mmHg BP Diastolic 76 mmHg Respiratory Rate 18 /min Pain Level 0 07/10/2018 12:13pm Height 71 inches 5'11" Weight 150.00 lb Heart Rate 84 /min BP Systolic 138 mmHg BP Diastolic 88 mmHg Respiratory Rate 16 /min BMI (Body Mass Index) 20.9 kg/m2 06/01/2018 10:13am Weight 162.00 lb Heart Rate 73 /min BP Systolic Sitting 110 mmHg BP Diastolic Sitting 60 mmHg Respiratory Rate 24 /min Body Temperature 97.9 F O2 % BldC Oximetry 98 % 04/26/2018 1:53pm Height 71 inches 5'11" Weight 160.00 lb Heart Rate 78 /min BP Systolic 128 mmHg BP Diastolic 70 mmHg Respiratory Rate 12 /min Pain Level 1 BMI (Body Mass Index) 22.3 kg/m2 04/09/2018 12:57pm Height 71 inches 5'11" Weight 159.50 lb Heart Rate 88 /min BP Systolic Sitting 160 mmHg BP Diastolic Sitting 60 mmHg Respiratory Rate 16 /min BMI (Body Mass Index) 22.2 kg/m2 01/22/2018 11:01am Weight 163.12 lb Heart Rate 88 /min BP Systolic Sitting 154 mmHg BP Diastolic Sitting 78 mmHg Respiratory Rate 24 /min rechecked 20 01/11/2018 2:31pm Height 71 inches 5'11" Weight 160.00 lb BP Systolic 163 mmHg BP Diastolic 84 mmHg Respiratory Rate 16 /min Pain Level 3 BMI (Body Mass Index) 22.3 kg/m2 10/06/2017 10:30am Weight 180.00 lb Heart Rate 82 /min BP Systolic 116 mmHg BP Diastolic 64 mmHg Respiratory Rate 20 /min Body Temperature 98.4 F O2 % BldC Oximetry 96 % 12/14/2015 10:04am Height 71 inches 5'11" Weight 175.00 lb Heart Rate 67 /min BP Systolic 146 mmHg BP Diastolic 85 mmHg BMI (Body Mass Index) 24.4 kg/m2 11/25/2015 1:16pm Weight 182.38 lb Heart Rate 72 /min BP Systolic Sitting 146 mmHg BP Diastolic Sitting 76 mmHg Respiratory Rate 16 /min Body Temperature 98.0 F O2 % BldC Oximetry 98 % 03/05/2014 2:17pm Height 73 inches 6'1" Heart Rate 71 /min BP Systolic 131 mmHg BP Diastolic 78 mmHg 02/26/2014 2:36pm Height 73 inches 6'1" Heart Rate 71 /min BP Systolic 137 mmHg BP Diastolic 79 mmHg 02/19/2014 2:25pm Height 73 inches 6'1" Heart Rate 70 /min BP Systolic 84 mmHg BP Diastolic 51 mmHg 01/22/2014 2:14pm Heart Rate 70 /min BP Systolic 178 mmHg BP Diastolic 110 mmHg 11/11/2013 3:45pm Heart Rate 72 /min BP Systolic 140 mmHg BP Diastolic 76 mmHg Respiratory Rate 16 /min Body Temperature 97.1 F 09/27/2012 2:13pm Heart Rate 64 /min BP Systolic 156 mmHg BP Diastolic 76 mmHg Respiratory Rate 16 /min Body Temperature 97.5 F 12/30/2010 1:39pm Height 73 inches 6'1" Weight 175.00 lb Heart Rate 72 /min BP Systolic 172 mmHg BP Diastolic 84 mmHg BMI (Body Mass Index) 23.1 kg/m2 Results Test Date Facility Test Result H/L Range Note BUN/Creat/GFR 07/06/2018 [facility] Poc Blood Urea 24 mg/dL N 8-[address] [place] [address] [phone] Poc Creatinine 0.9 mg/dL N 0.6-1.3 1 Poc BUN/Creatinine Ratio 26.7 High 8-20 Egfr Non- 79.5 >60 Egfr 96.1 >60 2 Basic Metabolic Panel 07/06/2018 [facility] Sodium 137 mmol/L N 135-[address] [place] [address] [phone] Potassium 4.2 mmol/L N 3.5-5.0 Chloride 103 mmol/L N 101-111 Co2 Carbon Dioxide 30 mmol/L N 22-32 Anion Gap 4 mmol/L N 2-11 Glucose 94 mg/dL N 70-100 Blood Urea Nitrogen 25 mg/dL High 6-24 Creatinine 0.86 mg/dL N 0.67-1.17 BUN/Creatinine Ratio 29.1 High 8-20 Calcium 8.9 mg/dL N 8.6-10.3 Egfr Non- 83.7 >60 Egfr 101.3 >60 3 1 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 The National Kidney Disease Education Program (NKDEP) does not endorse the use of the MDRD equation for patients that are not between the ages of 18 and 70, are , have extremes of body size, muscle mass, or nutritional status, or are non- or non-. According to the National Kidney Foundation, irrespective of diagnosis, the stage of the disease is based on the level of kidney function: Stage Description GFR(mL/min/1.73 m(2)) 1 Kidney damage with normal or decreased GFR 90 2 Kidney damage with mild decrease in GFR 60-89 3 Moderate decrease in GFR 30-59 4 Severe decrease in GFR 15-29 5 Kidney failure <15 (or dialysis) 3 Because ethnic data is not always readily available, this report includes an eGFR for both -Americans and non- Americans. The National Kidney Disease Education Program (NKDEP) does not endorse the use of the MDRD equation for patients that are not between the ages of 18 and 70, are , have extremes of body size, muscle mass, or nutritional status, or are non- or non-. According to the National Kidney Foundation, irrespective of diagnosis, the stage of the disease is based on the level of kidney function: Stage Description GFR(mL/min/1.73 m(2)) 1 Kidney damage with normal or decreased GFR 90 2 Kidney damage with mild decrease in GFR 60-89 3 Moderate decrease in GFR 30-59 4 Severe decrease in GFR 15-29 5 Kidney failure <15 (or dialysis) Procedures Date Code Description Status 08/27/2018 Inject/Drain Joint/Bursa Major W/O US Completed 04/26/2018 Inject/Drain Joint/Bursa Major W/O US Completed 03/01/2018 56581 EEG Recording Awake & Drowsy Completed 01/22/2018 42859 Remove Impacted Cerumen Completed 01/11/2018 Inject/Drain Joint/Bursa Major W/O US Completed 01/13/2017 47980 Mobile Cardiovascular Telemetry Over 24 HR Up To 30 Days Completed 03/05/2014 Inject/Drain Joint/Bursa Major W/O US Completed 02/26/2014 Inject/Drain Joint/Bursa Major W/O US Completed 02/19/2014 Inject/Drain Joint/Bursa Major W/O US Completed 01/22/2014 71779 Xray Knee 3 Views Completed 01/22/2014 60582 Xray Knee 3 Views Completed 01/22/2014 72864 Rad Exam; Knee, Ap&L Completed 01/22/2014 65718 Rad Exam; Knee, Ap&L Completed 01/27/2011 Inject/Drain Joint/Bursa Major W/O US Completed 12/30/2010 89640 Xray Knee 3 Views Completed 12/30/2010 52633 Xray Knee 3 Views Completed Encounters Type Date Location Provider Dx Diagnosis Office Visit 10/01/2018 [facility] Triny Oneil, R60.0 Localized edema 8:28a Home N.P. Office Visit 09/24/2018 [facility] Triny Oneil, R60.0 Localized edema 8:55a Home N.P. Office Visit 09/14/2018 [facility] Triny Oneil, R60.0 Localized edema 10:33a Home N.P. 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 knee M25.562 Pain in left knee Office Visit 04/09/2018 1:00p [place] Kolton Perez I65.23 Occlusion and Neurologic MLaura. stenosis of Services Of Nando bilateral carotid arteries Z86.73 Prsnl hx of TIA (TIA), and cereb infrc w/o resid deficits I95.1 Orthostatic hypotension Office Visit 03/08/2018 9:21a [place] [facility] D64.9 Anemia, Assoc,bay Tee M.D. unspecified Hospitalists I77.9 Disorder of arteries and arterioles, unspecified R50.81 Fever presenting with conditions classified elsewhere E78.5 Hyperlipidemia, unspecified Office Visit 03/07/2018 9:20a [facility] D64.9 Anemia, Assoc,bay Tee M.D. unspecified Hospitalists I77.9 Disorder of arteries and arterioles, unspecified R50.81 Fever presenting with conditions classified elsewhere E78.5 Hyperlipidemia, unspecified Office Visit 03/06/2018 9:14a [facility] D64.9 Anemia, Assoc,pc Reyes, DO unspecified Hospitalists I77.9 Disorder of arteries and arterioles, unspecified R50.81 Fever presenting with conditions classified elsewhere E78.5 Hyperlipidemia, unspecified Office Visit 03/05/2018 9:13a [facility] D64.9 Anemia, Assoc,pc Reyes, DO unspecified Hospitalists I77.9 Disorder of arteries and arterioles, unspecified T14.8xxA Other injury of unspecified body region, initial encounter R50.81 Fever presenting with conditions classified elsewhere Office Visit 03/04/2018 [facility] Kolton I65.23 Occlusion and 3:36p Clinic Vincenzo Perez stenosis of bilateral carotid arteries Z86.73 Prsnl hx of TIA (TIA), and cereb infrc w/o resid deficits I95.1 Orthostatic hypotension M62.89 Other specified disorders of muscle Office Visit 03/04/2018 9:10a [facility] D64.9 Anemia, Assoc,bay Tee M.D. unspecified Hospitalists I77.9 Disorder of arteries and arterioles, unspecified E78.5 Hyperlipidemia, unspecified T14.8xxA Other injury of unspecified body region, initial encounter Office Visit 03/03/2018 [facility] Edmund Gillespie I65.23 Occlusion and 3:36p Jorge Luis De Leon M.D. 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 unspecified Hospitalists I77.9 Disorder of arteries and arterioles, unspecified E78.5 Hyperlipidemia, unspecified T14.8xxA Other injury of unspecified body region, initial encounter Office Visit 03/02/2018 [facility] Angelina Robles I63.40 Cerebral 3:36p Jorge Luis Rader M.D. 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 unspecified Hospitalists T14.8xxA Other injury of unspecified body region, initial encounter I77.9 Disorder of arteries and arterioles, unspecified E78.5 Hyperlipidemia, unspecified Office Visit 02/28/2018 [facility] Angelina Robles I65.23 Occlusion and 3:34p Jorge Luis Rader M.D. stenosis of bilateral carotid arteries I95.1 Orthostatic hypotension Office Visit 02/28/2018 9:05a [facility] Isis D64.9 Anemia, Assoc,pc Reyes, DO unspecified Hospitalists I77.9 Disorder of arteries and arterioles, unspecified E78.5 Hyperlipidemia, unspecified T14.8xxA Other injury of unspecified body region, initial encounter Office Visit 02/27/2018 9:04a [facility] Isis D64.9 Anemia, Assoc,pc Reyes, DO unspecified Hospitalists I77.9 Disorder of arteries and arterioles, unspecified E78.5 Hyperlipidemia, unspecified T14.8xxA Other injury of unspecified body region, initial encounter Office Visit 02/27/2018 [facility] Angelina Robles I65.23 Occlusion and 3:32p Clinic Vincenzo Rader stenosis of bilateral carotid arteries I95.1 Orthostatic hypotension Z86.73 Prsnl hx of TIA (TIA), and cereb infrc w/o resid deficits Z79.01 USP (current) use of anticoagulants Office Visit 02/26/2018 9:03a [facility] Suyapa D64.9 Anemia, Assoc,bay Gomes, unspecified 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 knee M25.462 Effusion, left knee Office Visit 12/06/2017 9:39a [facility] Rogelio Young, J10.1 Flu due to oth Assoc,pc ident influenza Hospitalists virus w oth resp manifest J18.9 Pneumonia, unspecified organism I73.9 Peripheral vascular disease, unspecified N40.0 Benign prostatic hyperplasia without lower urinry tract symp Office Visit 12/04/2017 8:59a [facility] Jailyn J10.1 Flu due to oth Assoc,bay Guevara D.O. ident influenza Hospitalists virus w oth resp manifest M48.00 Spinal stenosis, site unspecified N40.0 Benign prostatic hyperplasia without lower urinry tract symp I73.9 Peripheral vascular disease, unspecified Office 10/06/2017 [facility] J00 Acute Visit 10:38a JAMES Huggins nasopharyngitis [common cold] Office 11/02/2016 [facility] Boris Lin, I65.23 Occlusion and Visit 8:50a Clinic stenosis of bilateral carotid arteries Office 11/02/2016 [facility] Marcie G45.9 Transient cerebral Visit 2:55p Assoc,pc [facility] ischemic attack, Hospitalists Cynthia, JAMES unspecified M48.00 Spinal stenosis, site unspecified H40.9 Unspecified glaucoma D51.8 Other vitamin B12 deficiency anemias Office Visit 11/01/2016 [facility] G45.9 Transient 2:54p Assoc,pc JAMES Marie cerebral Hospitalists ischemic attack, unspecified H40.9 Unspecified glaucoma M48.00 Spinal stenosis, site unspecified D51.8 Other vitamin B12 deficiency anemias Office Visit 12/14/2015 [facility] Ted Seaman, 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 hip M54.16 Radiculopathy, lumbar region Office Visit 11/25/2015 [facility] Triny S93.402A Sprain of 1:47p Home Thad, N.P. unspecified ligament of left ankle, init encntr Office Visit 01/22/2014 [facility] Connor Thomas 715.96 Osteoarthrosis 2:15p Services Of Clementina Morales Genlzd Or C.M.A. R.P.A.-C Localized Lower Leg Office Visit 11/11/2013 [facility] Arianna 707.21 Pressure Ulcer, 4:02p Home Tabby Stage I , N.P. 736.79 Deformity Ankle & Foot Other Acquired Office 09/27/2012 [facility] Arianna 465.9 URI Upper Visit 2:14p Home Tabby, Respiratory N.P. Infections Acute Unspec Sites Office 09/07/2012 Sha Carlson 715.96 Osteoarthrosis Visit 11:30a [facility] Mcrae Genlzd Or C.M.A. Localized Lower Leg Office 03/09/2012 Sha Carlson 715.96 Osteoarthrosis Visit 10:15a [facility] Mcrae Genlzd Or C.M.A. Localized Lower Leg Office 01/27/2011 Sha Carlson 71Sara.96 Osteoarthrosis Visit 11:15a [facility] Mcrae Genlzd Or C.M.A. Localized Lower Leg Office 01/13/2011 Sha Carlson 71Sara.96 Osteoarthrosis Visit 2:30p Services Of Vincenzo Cabrera Or Gildardo Localized Lower Leg Office 12/30/2010 [facility] Nima Carlson, 715.96 Osteoarthrosis Visit 1:30p Services Of Vincenzo Cabrera Or Gildardo Localized Lower Leg Plan of Treatment Future Appointment(s):05/13/2019 2:45 pm - Kolton Perez M.D. at [place] [facility]11/09/2018 - Kolton Perez M.D.Z86.73 Personal history of transient ischemic attack (TIA), and cerFollow up:Follow up in 6 ycezfkS75.23 Occlusion and stenosis of bilateral carotid arteries
--- OUTSIDE RECORDS SUMMARY | 2018-11-15 05:38 | XMS REPORT | Continuity of Care Document ---
:1930 External Reference #:[id number] Author Name Сергей Andres M.D. Address [address] [place] [address] Care Team Providers Name Role Phone Garett Caldwell M.D. Primary Care Physician Unavailable Payers Type Date Identification Numbers Payment Provider Subscriber Policy Number: [id number] [place] [employer] Сергей Lu PayID: [id number] [address] [place] [address] Policy Number: [id number] [facility] Сергей Lu Group Number: [id number] DO Not Use-Use #36 PayID: [id number] [place] [address] Advance Directives Description No Information Available Problems Description No Information Family History Description No Information Available Social History Type Date Description Comments Sex Unknown Occupation Retired Tobacco Use Start: Unknown Never Smoked Cigarettes Tobacco Use Start: Unknown Never Smoked Cigars Tobacco Use Start: Unknown Never Smoked A Pipe Smokeless Tobacco Never Used Smokeless Tobacco ETOH Use Currently occasionally consumes alcohol Tobacco Use Start: Unknown Patient has never smoked Smoking Status Reviewed: 11/13/18 Patient has never smoked Allergies, Adverse Reactions, Alerts Description No Known Drug Allergies Medications Medication Date Status Form Strength Qnty SIG Indications Ordering Provider Chaka Aspirin 00// Active Tablets 325mg daily Unknown 0000 Tramadol HCL ER 00/ Active Caps ER 200mg daily Unknown 0000 24HR Amlodipine 0000/ Active Tablets 5mg 1 by mouth Unknown Besylate 0000 every day Alphagan P 00/ Active Solution 0.1% as Unknown 0000 directed Cyanocobalamin 00/ Active Solution 1000mcg/M 1 inj Unknown 0000 L every month Finasteride 00/ Active Tablets 5mg 1 by mouth Unknown 0000 every day Midodrine HCL / Active Tablets 10mg as Unknown 0000 directed Prasugrel HCL / Active Tablets 10mg as Unknown 0000 directed Azopt / Active Suspension 1% as Unknown 0000 directed Oseltamivir / Active Capsules 30mg as Unknown Phosphate 0000 directed Vitamin B12 01/24/ Hx Injection 1,000mcg/ Сергей Moulton 2005 - ML Strominge 07/13/ r MRoula 2015 Chondroitin 01/24/ Hx Solution 40mg;30 Сергей Moulton Sulfate-Sodium 2004 - mg Strominge Hyaluronate r, MRoula 2015 Multivitamins 01/24/ Hx Caplets Сергей Moulton 2004 - Strominge 07/13/ r MRoula 2015 Calcium 01/24/ Hx Tablets 500mg Сергей Moulton Gluconate 2004 - Strominge 07/13/ r MRoula 2015 Baby Aspirin / Hx Chewtabs 81mg Unknown 0000 - 2015 Proscar / Hx Tablets 5mg Unknown - 2015 Vitamin For / Hx Unknown Vision 0000 - 2015 Lutein / Hx Unknown 0000 - 2009 Nystatin-Triamci / Hx Cream 407148-0. Apply Unknown nolone 0000 - 1Unit/GM- Topically To The 2019 Affected Area S Two Times A Day In The Morning Sulfamethoxazole / Hx Tablets 800-160mg [place], /Trimethoprim DS 0000 - Nimesh Loya 2015 Fluticasone / Hx 50mcg 2 sprays Kayce, Nasal [place] 0000 - each side Nimesh Loya 07/13/ twice a 2015 day Naproxen / Hx Tablets 250mg 1 tab by [place]ries, 0000 - mouth Nimesh Loya 11/14/ twice a 2018 day Aspir-81 / Hx Tablets DR 81mg by mouth Unknown 0000 - every day 2018 Immunizations Description No Information Available Vital Signs Date Vital Result Comment 11/14/2018 3:17pm Weight 150.00 lb Weight 68.040 kg Height 71 inches 5'11" Height in cm's 180.3 cm BMI (Body Mass Index) 20.9 kg/m2 07/13/2016 3:10pm BP Systolic 172 mmHg BP Diastolic 74 mmHg Heart Rate 75 /min Respiratory Rate 17 /min Weight 170.00 lb Weight 77.112 kg Height 71 inches 5'11" Height in cm's 180.3 cm BMI (Body Mass Index) 23.7 kg/m2 04/20/2010 10:52am BP Systolic 156 mmHg BP Diastolic 88 mmHg Heart Rate 70 /min Respiratory Rate 16 /min 01/02/2008 2:10pm BP Systolic 143 mmHg BP Diastolic 83 mmHg Heart Rate 72 /min Respiratory Rate 16 /min Results Description No Information Available Procedures Date Code Description Status 11/14/2018 31504 Control Nasal Hemorrhage (Extensive Cautery/Packing) Any Completed Method 07/13/2016 64886 Contol Nasal Hemorrhage, Anterior, Simple Completed 04/20/2010 62696 Contol Nasal Hemorrhage, Anterior, Simple Completed 01/02/2008 74166 Contol Nasal Hemorrhage, Anterior, Simple Completed 01/24/2005 54156 Control Nasal Hemorrhage (Extensive Cautery/Packing) Any Completed Method 10/12/2004 09996 Contol Nasal Hemorrhage, Anterior, Simple Completed Encounters Type Date Location Provider Dx Diagnosis Office Visit 01/02/2008 [place],After 10/30/07 Сергей Reis Epistaxis 2:30p Vincenzo Andres Office Visit 03/16/2005 [place],After 10/30/07 Сергей Reis Epistaxis 2:15p Vincenzo Andres Office Visit 01/24/2005 [place],After 10/30/07 Сергей Reis Epistaxis 10:30a Vincenzo Andres Office Visit 10/12/2004 [place],After 10/30/07 Сергей Reis Epistaxis 2:15p Vincenzo nAdres Plan of Treatment 11/14/2018 - Сергей Andres M.D.R04.0 EpistaxisComments:The patient returned today after initially having a balloon pack placed in the right nostril and then after it was removed Surgicel. I cleaned this out today. He had some vessels on his septum I was concerned about so I cauterized these. He has some bleeding and fibrillar treated with Neosynephrine and then Tranexamic acid was placed. He should leave this alone. A little bit of oozing is expected. He should call here for more active bleeding. I had our PA look at him. She will se him on Monday.
[2018-11-15 06:48] VITALS: BP 175/98
== END 2018-11-15 06:53 | disposition home or self-care (01) ==
LOC: ED 04:55
DX: R04.0 Epistaxis (principal); Z79.02 Long term (current) use of antithrombotics/antiplatelets
CPT/HCPCS: 30901; 36415; 80053; 85025; 85610; 85730; 86850; 86900; 86901; 96374; 96375; 99284; A9270-GY; J2270; J2310; J2405